=== PATIENT | female | born 1975 | race Caucasian/White ===

== ENCOUNTER 2020-10-11 08:58 | Outpatient (REF) | payer OTHER, SELFPAY ==
[2020-10-11 09:24] LABS: COVID-19 Test Negative (Negative)
== END 2020-10-11 08:59 | disposition home or self-care (01) ==
LOC: HO.EMPCOV 08:58
PROVIDERS: Visit Provider Internal Medicine
DX: Z20.822 Contact with and (suspected) exposure to COVID-19 (principal)
CPT/HCPCS: 36415; 87635; C9803

== ENCOUNTER 2023-05-26 12:39 | Outpatient (AMB) | payer OTHER, BC, SELFPAY ==
--- NOTE | 2023-05-26 12:38 | MHC.OFFVIS ---
Intake Vital Signs 05/26/23 12:41 Height 5 ft 3.75 in Weight 187 lb 13.341 oz BMI 32.5 BP 132/68 Blood Pressure Location Lt brachial Position Sitting Pulse 75 Pulse Source Pulse Oximeter Pulse Oximetry (%) 98 Oxygen Delivery Method Room Air Intake Visit Reasons: Nausea, Abdominal Pains Intake Note: Pt presents to the office today for ongoing nausea and abdominal pain. Pt states shes been having stomach issues for years but within the past two weeks she states she hasn't had an appetite and when she does eat she feels full without eating much. She states recently her appetite has come back a little but she doesnt think it has gone back to normal. She states she has been having loose stools but no vomiting and nauesea currently. Allergies Penicillins [PENICILLINS] Allergy (Unknown, Unverified 05/26/23 12:43) UNKNOWN HPI HPI Comments History of Present Illness Details 48 y.o F with PMH of who is here to establish care. Pt reports having longstanding gastrointestinal complaints and had lap CCY in 2016 at [facility] for biliary colic. More recently since Dec has lost appetite. Initially attributed this to taking Abx for sinusitis. However gradually lost weight as well up to 15 lbs in 2 months. Now continues to have low appetite and early satiety has gotten worse over the last 2 weeks and resultantly lost 7 lbs in 2 weeks. No significant abdominal pain, nausea, vomiting or change in bowel habits with this. Does have diarrhea at baseline, which has been present since her cholecystectomy, describes it as loose stool that appear greasy. Last colo was in her early 30s which was done as part of work up for abd pain. Has not had a screening colo since she has turned 45. [facility] Medical History FH: cholecystectomy Monocular diplopia of right eye Surgical History H/O reduction mammoplasty Social History Household Members: Family Housing: House Alcohol intake: current Alcohol intake frequency: a few times a month Patient Tobacco Use Status: Never used Tobacco service: No Current occupational status: employed Current occupation: [employer] [place] Neurology and Sleep Review of Systems Const All systems reviewed & are unremarkable except as noted in HPI and below Physical Exam Vital Signs: Last Vital Signs Pulse 75 05/26/23 12:41 BP 132/68 05/26/23 12:41 Pulse Ox 98 05/26/23 12:41 Oxygen Delivery Method Room Air 05/26/23 12:41 BMI result Body Mass Index 32.5 Gen appear: NAD HEENT: nonicteric, no cervical lymphadenopathy Chest: CTA CVS: Regular S1/S2 Abd: soft, nontender, nondistended, bowel sounds + Ext: no peripheral edema Neuro: A/Ox3, noted to move all extremities spontaneously Psych: interacting appropriately Assessment & Plan Assessment & Plan (1) Loss of appetite: Code(s): R63.0 - Anorexia (2) Unintentional weight loss: Code(s): R63.4 - Abnormal weight loss Plan Differentials include delayed gastric emptying, although it obstruction, PUD, IBD, chronic infection, dysmotility. Workup including upper GI series ordered as below. Indication for further workup including EGD and colonoscopy will be guided by the results. Follow-up in 4 weeks Orders: Orders Comprehensive Met. Panel 05/26/23 R63.4 - Abnormal weight loss Ferritin 05/26/23 R63.4 - Abnormal weight loss Hemoglobin A1c 05/26/23 R63.4 - Abnormal weight loss IRON PROFILE 05/26/23 R63.4 - Abnormal weight loss Vitamin D 25-OH Total 05/26/23 R63.4 - Abnormal weight loss Prothrombin Time INR 05/26/23 R63.4 - Abnormal weight loss Complete Blood Count no Diff 05/26/23 R63.4 - Abnormal weight loss Immunoglobulin A 05/26/23 R63.4 - Abnormal weight loss Transglutaminase IgA 05/26/23 R63.4 - Abnormal weight loss Hepatitis B Surface Antibody 05/26/23 R63.4 - Abnormal weight loss Hepatitis A IgG 05/26/23 R63.4 - Abnormal weight loss Hepatitis B Core Antibody 05/26/23 R63.4 - Abnormal weight loss Hepatitis B Surface Antigen 05/26/23 R63.4 - Abnormal weight loss Hepatitis C Antibody Reflex 05/26/23 K74.60 - Unspecified cirrhosis of liver, R63.4 - Abnormal weight loss HIV Ab/Ag 05/26/23 R63.4 - Abnormal weight loss FL upper GI series 05/26/23 R63.0 - Anorexia Calcium, Ionized 05/26/23 R63.0 - Anorexia Magnesium 05/26/23 R63.0 - Anorexia Calprotectin, Fecal 05/26/23 R63.4 - Abnormal weight loss Coding Level of Care Code New Pt Level 5 (45766) Diagnoses Loss of appetite R63.0 Unintentional weight loss R63.4
[2023-05-26 12:41] VITALS: BP 132/68; PULSE 75; O2SAT 98; BMI 32.5
== END 2023-05-26 13:21 | disposition home or self-care (01) ==
PROVIDERS: Visit Provider Internal Medicine
DX: R63.0 Anorexia (principal)
CPT/HCPCS: 99204

== ENCOUNTER → 2023-05-26 12:39 | Outpatient (BNVA) | payer OTHER, SELFPAY | PROVIDERS: Visit Provider Internal Medicine | DX: R63.0 Anorexia (principal); R63.4 Abnormal weight loss | CPT/HCPCS: 99202 ==

== ENCOUNTER 2023-06-26 10:37 | Outpatient (REF) | payer OTHER, BC, SELFPAY ==
[2023-06-26 10:56] LABS: Hematocrit 37.4 % (37.0-47.0); Hemoglobin 12.5 g/dl (12.0-16.0); Mean Corpuscular HGB Conc 33.4 g/dl (31.0-35.0); Mean Corpuscular Hemoglobin 28.9 pg (27.0-33.0); Mean Corpuscular Volume 86.4 fL (80.0-98.0); Mean Platelet Volume 9.9 fL (9.4-12.3); Platelet Count 242 X10*3/uL (160-400); Red Blood Count 4.33 X10*6/uL (4.20-5.50); Red Cell Distribution Width 12.2 % (11.0-16.0); White Blood Count 5.3 X10*3/uL (4.8-10.8)
[2023-06-26 11:04] LABS: INTERNATIONAL NORM RATIO 0.9 (0.9-1.1); Prothrombin Time 11.1 SEC (11.1-13.3)
[2023-06-26 11:10] LABS: Estimated Average Glucose 94 mg/dL; Hemoglobin A1c % 4.9 % (<6.0)
[2023-06-26 11:47] LABS: Alanine Aminotransferase 17 U/L (0-31); Albumin Level 4.1 g/dL (3.5-5.0); Alkaline Phosphatase 50 U/L (39-117); Anion Gap 14 (12-20); Aspartate Amino Transferase 16 U/L (5-31); Bilirubin Total 0.4 mg/dL (0.0-1.0); Blood Urea Nitrogen 14 mg/dL (9-16); Calcium 9.2 mg/dL (8.4-10.2); Carbon Dioxide 22 mmol/L (22-29); Chloride 107 mmol/L (96-108); Estimated Glomerular Filt Rate > 60; Glucose Random 93 mg/dL (60-115); Iron 64 mcg/dL (30-160); Magnesium 2.1 mg/dL (1.6-2.6); Percent Iron Saturation 22 % (15-50); Potassium 4.3 mmol/L (3.3-5.1); Sodium 139 mmol/L (135-145); Total Iron Binding Capacity 292 mcg/dL (228-428); Total Protein 7.2 g/dL (6.5-8.0); Unsaturated Iron Binding 228 ug/dL
[2023-06-26 12:02] LABS: Ferritin 19 ng/mL (10-250)
[2023-06-28 03:56] LABS: HBS Num1 114.41 mIU/mL (0-7.99); HBc Num1 0.13 S/CO (0.00-0.79); HBsAGNum1 0.35 S/CO (0.00-0.99); HIV AB/AG Nonreactive (Nonreactive); HIV Num 1 0.06 S/CO (0.00-0.99); Hepatitis B Core Antibody Nonreactive (Nonreactive); Hepatitis B Surface Antigen Negative (Negative); ~HepC Num1 0.15 S/CO (0.00-0.79); ~Hepatitis B Surface Antibody REACTIVE (Nonreactive); ~Hepatitis C Antibody Nonreactive (Nonreactive)
[2023-06-28 03:58] LABS: Hepatitis A Antibody IgG Nonreactive (Nonreactive)
[2023-06-28 20:08] LABS: Immunoglobulin A 224 mg/dL (47-310)
[2023-06-28 20:58] LABS: Calcium, Ionized 5.1 mg/dL (4.7-5.5)
[2023-06-29 20:50] LABS: Transglutaminase IgA <1.0 U/mL
== END 2023-06-26 10:38 | disposition home or self-care (01) ==
LOC: HO.LAB 10:37
PROVIDERS: Visit Provider Internal Medicine
DX: K74.60 Unspecified cirrhosis of liver (principal); R63.4 Abnormal weight loss; R63.0 Anorexia
CPT/HCPCS: 36415; 80053; 82306; 82330; 82728; 82784; 83036; 83540; 83735; 85027; 85610; 86364; 86704; 86706; 86708; 86803; 87340; 87389

== ENCOUNTER 2023-07-01 09:02 | Outpatient (REF) | payer BC, SELFPAY ==
--- NOTE | ~2023-07-01 | FL_ITS ---
EXAMINATION: XR FLUOROSCOPY UPPER GI WITH AIR CLINICAL INFORMATION: Unexplained weight loss and loss of appetite. COMPARISON: None TECHNIQUE: Fluoroscopic air contrast upper GI examination was performed utilizing standard techniques with thin and thick barium and effervescent granules. Numerous spot images were obtained. FINDINGS: Hypopharyngeal structures appear normal without evidence of mass or diverticulum. There was no significant cricopharyngeal achalasia. Dual and single contrast images of the esophagus demonstrate normal caliber, contour, and mucosal pattern. No evidence of stricture, mass, or ulcerations identified. Esophageal peristalsis was normal. Small sliding (type I) hiatus hernia present. There is a small Schatzki's ring present which is open without luminal narrowing. Episodic gastroesophageal reflux was seen during the course of the examination to the level of the thoracic inlet. Dual contrast and single contrast images of the stomach demonstrated normal contour and mucosal pattern without evidence of mass, ulceration, or other abnormality. Contrast freely passed into the gastric antrum and duodenal bulb without delay. Single and air-contrast images of the duodenal bulb demonstrate no abnormality. The duodenal sweep has a normal appearance, course, and mucosal fold appearance. The imaged proximal jejunum has a normal fold pattern and caliber. Mildly fast transit was incidentally noted with contrast reaching the mid ileum at the termination of the exam. This is of uncertain significance or etiology. Small bowel fold pattern and caliber appear normal. Cholecystectomy clips are noted. FLUOROSCOPY TIME: 3 minutes and 6 seconds Number of Spot Images: 18 spot images obtained. 5 image hold fluoroscopic cine runs obtained. DOSE AREA PRODUCT: 2828 uGy-m2 (microgray-meter squared) FL/FL upper GI series IMPRESSION: 1. Small type I hiatus hernia. Probable remnant of a Schatzki's ring present at the distal esophagus without luminal narrowing. 2. Episodic gastroesophageal reflux to the level of the thoracic inlet. 3. Mildly fast transit through the small bowel, of uncertain significance or etiology. 4. Normal appearing stomach, duodenal bulb, duodenal sweep, and small bowel appearance.
== END 2023-07-01 09:03 | disposition home or self-care (01) ==
LOC: HO.XRAY 09:02
PROVIDERS: PCP Internal Medicine; Visit Provider Internal Medicine
DX: R63.0 Anorexia (principal)
CPT/HCPCS: 74240

== ENCOUNTER → 2023-07-01 09:03 | Outpatient (BNV) | payer BC, SELFPAY | PROVIDERS: PCP Internal Medicine; Visit Provider Radiology Diagnostic Radiology | DX: R63.4 Abnormal weight loss (principal) | CPT/HCPCS: 74246 ==

== ENCOUNTER 2023-07-09 15:46 | Outpatient (AMB) | payer BC, SELFPAY ==
--- NOTE | 2023-07-09 16:09 | MHC.OFFVIS ---
Intake Intake Visit Reasons: 4 Week FU Labs Intake Note: Emily presents as a video call today for a 4 week follow up for her labs. Allergies Penicillins [PENICILLINS] Allergy (Unknown, Unverified 07/09/23 16:09) UNKNOWN HPI HPI Comments History of Present Illness Details 48 y.o F with PMH of who is here for follow up through telehealth. 05/26/23: Pt reports having longstanding gastrointestinal complaints and had lap CCY in 2016 at [facility] for biliary colic. More recently since Dec has lost appetite. Initially attributed this to taking Abx for sinusitis. However gradually lost weight as well up to 15 lbs in 2 months. Now continues to have low appetite and early satiety has gotten worse over the last 2 weeks and resultantly lost 7 lbs in 2 weeks. No significant abdominal pain, nausea, vomiting or change in bowel habits with this. Does have diarrhea at baseline, which has been present since her cholecystectomy, describes it as loose stool that appear greasy. Last colo was in her early 30s which was done as part of work up for abd pain. Has not had a screening colo since she has turned 45. 07/09/23: Seen via video telehealth. Reports weight curve is now more stable, has made dietary changes as well. Labs reviewed and essentially all normal. UGIS consistent with reflux disease as well as nonobstructing Schatzki's ring. However pt does not report any significant swallowing difficulty. [facility] Medical History Monocular diplopia of right eye FH: cholecystectomy Surgical History H/O reduction mammoplasty Social History Household Members: Family Housing: House Alcohol intake: current Alcohol intake frequency: a few times a month Patient Tobacco Use Status: Never used Tobacco service: No Current occupational status: employed Current occupation: [employer] [place] Neurology and Sleep Review of Systems Const All systems reviewed & are unremarkable except as noted in HPI and below Physical Exam Vital Signs: Video visit: NAD speaking in full sentences no dysarthria noted Assessment & Plan Assessment & Plan (1) GERD (gastroesophageal reflux disease): Code(s): K21.9 - Gastro-esophageal reflux disease without esophagitis (2) Schatzki's ring: Code(s): K22.2 - Esophageal obstruction (3) Colon cancer screening: Code(s): Z12.11 - Encounter for screening for malignant neoplasm of colon Plan Will set her up for EGD for further eval of Schatzki's ring as well as to r/o BE given significant reflux noted on UGIS. This can be booked at the same time as screening colo. Split PEG prep instructions reviewed. Handout provided online. Pt is aware that this will be booked on an elective basis. Follow up after procedures as needed. Medications: New peg 3350-electrolytes 236-22.74-6.74 -5.86 gram (Golytely) as per split prep instructions, until fecal effluent is clear 240 mL PO Q10M 4,000 mL 0RF colonoscopy Telehealth Telehealth Location of provider rendering services: practice address Location of patient: address on file Patient Identification confirmed using: Name, : Yes Telehealth method: video Patient verbally consented to treatment: Yes Patient verbally consented to billing insurance company: Yes Patient informed of any privacy concerns related to visit: Yes Minutes spent on Phone/Video with Pt.: 16 Coding Level of Care Code Tele Est Pt Level 4 (36783) Diagnoses GERD (gastroesophageal reflux disease) K21.9 Schatzki's ring K22.2 Colon cancer screening Z12.11
== END 2023-07-09 16:23 | disposition home or self-care (01) ==
LOC: HO.HGI 15:46
PROVIDERS: PCP Internal Medicine; Visit Provider Internal Medicine
DX: K22.2 Esophageal obstruction (principal); K21.9 Gastro-esophageal reflux disease without esophagitis; Z12.11 Encounter for screening for malignant neoplasm of colon
CPT/HCPCS: 99213

== ENCOUNTER → 2023-07-09 15:46 | Outpatient (BNVA) | payer BC, SELFPAY | PROVIDERS: PCP Internal Medicine; Visit Provider Internal Medicine | DX: K21.9 Gastro-esophageal reflux disease without esophagitis (principal); K22.2 Esophageal obstruction; Z12.11 Encounter for screening for malignant neoplasm of colon ==

== ENCOUNTER 2024-01-27 06:42 | Day surgery (SDC) | payer BC, SELFPAY ==
[2024-01-27 06:52] VITALS: BMI 30.1
[2024-01-27 06:57] VITALS: PULSE 70; RESP 18; TEMP 36.6; O2SAT 100
[2024-01-27 07:18] LABS: UPreg QC Valid YES; Urine Pregnancy NEGATIVE (NEGATIVE)
[2024-01-27] MEDS: Lactated Ringers 1,000 ML 50 ML IVCONT (07:44)
--- NOTE | 2024-01-27 07:52 | HO.ANESPROP2 ---
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 FH: cholecystectomy Functional capacity: independent ambulation Patient : No Family History Family history of problems with anesthesia: No Surgical History Surgical History H/O reduction mammoplasty History of Problems with Anesthesia: No Social History Social History Household Members: Family Housing: House Alcohol intake: current Alcohol intake frequency: a few times a month Patient Tobacco Use Status: Never used Tobacco Use of substances other than those prescribed or required for medical reasons: No Are you DNR?: No Advance Directives: No Advance Directives Information Provided: Yes service: No Current occupational status: employed Current occupation: [employer] [place] Neurology and Sleep Meds Allergies Allergy/AdvReac Type Severity Reaction Status Date / Time Penicillins [PENICILLINS] Allergy Unknown UNKNOWN Verified 01/27/24 07:43 pork gelitin Allergy Nausea Uncoded 01/27/24 07:42 Active Medications: Current Medications Lactated Ringer's (Lr) 1,000 mls @ 50 mls/hr IVCONT .Q20H MATILDA Last Admin: 01/27/24 07:44 Dose: 50 mls/hr Home Medications ?Medication ?Instructions ?Recorded ?Confirmed ?Last Taken ?Type azelastine 137 mcg (0.1 %) nasal 2 spray intranasal BID 05/26/23 01/27/24 Unknown History spray aerosol fluticasone propionate 50 2 spray intranasal BID PRN nasal 05/26/23 01/27/24 Unknown History mcg/actuation nasal stuffy spray,suspension zafirlukast 20 mg tablet 20 mg PO BID 05/26/23 01/27/24 Unknown History albuterol sulfate 90 mcg/actuation 2 puff inhalation Q4H PRN Cough 07/09/23 01/27/24 Unknown History aerosol inhaler Exam Height,Weight and Vital Signs: Height 5 ft 3.75 in Weight 79.016 kg Last Vital Signs Temp 97.9 F 01/27/24 06:57 Pulse 70 01/27/24 06:57 Resp 18 01/27/24 06:57 Pulse Ox 100 01/27/24 06:57 O2 Del Method Room Air 01/27/24 06:57 Pertinent Lab Results Pertinent Lab Results: Laboratory Tests 01/27/24 07:02 Urine Test NEGATIVE Airway TM Dist: >3cm Neck ROM: Full Heart: RRR Lungs: CTA Assessment and Plan Assessment Anesthesia Assessment: Anesthesia Plan Discussed Final Anesthetic Review Family History of Problems with Anesthesia: No History of Problems with Anesthesia: No NPO: Yes ASA Class: II Final Preanesthetic Review: Meds/Allgs Chart Reviewed, Consent Obtained/Reviewed and Anes Risks/Benef Reviewed Anesthetic Plan Anesthetic Plan: MAC: Disposition: Standard PACU
--- NOTE | 2024-01-27 08:12 | MHC.SHP ---
Pre-Procedural Eval Section A - 24 Hr Update-Section A only Date of Service: 01/27/24 Section B - Complete if H&P > 30 days Chief Complaint: gerd,screening Details of Present Illness: Monocular diplopia of right eye FH: cholecystectomy Surgical History H/O reduction mammoplasty Allergies: Allergies Allergy/AdvReac Type Severity Reaction Status Date / Time Penicillins [PENICILLINS] Allergy Unknown UNKNOWN Verified 01/27/24 07:43 pork gelitin Allergy Nausea Uncoded 01/27/24 07:42 Review of Systems Review of Systems Comment: 10 point ROS negative Exam Surgical H&P Exam: Normal: HEENT, Normal: Heart, Normal: Lungs, Normal: Extremities, Normal: Abdomen, Normal: Skin and Normal: Neurological Plan Diagnosis/Plan: Unchanged I have reviewed the history and physical and performed a pertinent physical examination on my patient. No changes have occurred unless specified. Time Spent With Patient Time: Total time managing care of this patient today ____ minutes.
--- NOTE | 2024-01-27 08:16 | P.OP_ITS ---
Operative Note Operative Note Date of Service: 01/27/24 Narrative: Procedure: Upper endoscopy and colonoscopy Indication: GERD, screening Endoscopist: Milagros Patino MD Anesthesia Provider: Kathy Verdin CRNA Anesthesia type: MAC Instrument: GIF-H190 and PCF-H190L EGD Procedure:?? The procedure, indications, preparation and potential complications were reviewed with the patient, who indicated understanding and gave written informed consent to proceed. Physical exam was performed. The endoscope was introduced through the mouth, and advanced to the 3rd part of the duodenum. The mucosa was carefully examined on slow withdrawal of the endoscope. The patient tolerated the procedure well. There were no immediate complications.? EGD Findings:? * Esophagus:? Erythema and erosions were noted at the GE junction. The Z-line was at 34 cm. A small hiatal hernia was noted with the diaphragmatic pinch at 36 cm. Cold forceps biopsies were taken for histology. * Stomach:? Normal gastric mucosa was noted. Retroflexion was performed in the cardia. Cold forceps random gastric biopsies were taken to rule out H pylori. * Duodenum:? Normal duodenal mucosa. Cold forceps biopsies were taken from the duodenal bulb and 2nd portion of the duodenum to rule out celiac sprue. Colonoscopy Procedure:? The patient was then turned for the colonoscopy. A digital rectal exam was performed which was abnormal for ext hemorrhoids.? A distal attachment cap was affixed to the tip of the scope and the colonoscope was then inserted through the anus and advanced through the colon and advanced to the cecum at 75 cm and terminal ileum.? Appendiceal orifice and ileocecal valve were identified. Mucosa was carefully examined under high definition white light as the instrument was slowly withdrawn in a retrograde panoramic fashion. Retroflexion was performed in rectum. The procedure was not difficult. The quality of the prep was BBPS: 3+2+3 = adequate Withdrawal time 14 minutes Limitations: No limitations Findings: Mucosa: Normal colon and terminal ileum mucosa. Protruding lesions: * One sessile polyps of size 5 mm was noted in the descending colon. Cold snare polypectomy was performed. The polyp was completely removed and retrieved. * Medium internal hemorrhoids without stigmata of recent bleeding. Excavated lesions: * Moderate diverticulosis in the left colon Impression: 1. Grade A esophagitis 2. Hiatal hernia 3. Normal stomach 4. Normal duodenum 5. Normal colon and terminal ileum mucosa 6. Descending colon polyp removed 7. Diverticulosis 8. Internal and external hemorrhoids Recommendations:?? * Follow-up path results * Start omeprazole b.i.d. x 8 weeks and then decrease to once daily * Avoid NSAIDs * Repeat colonoscopy in 7-10 years depending on the results
[2024-01-27 08:56] VITALS: BP 102/61; PULSE 85; RESP 16; TEMP 36.7; O2SAT 98
[2024-01-27 09:21] VITALS: BP 108/60; PULSE 77; RESP 17; TEMP 36.8; O2SAT 98
--- NOTE | 2024-01-27 10:33 | HO.POSTANES ---
Post Anesthesia Evaluation Post Anesthesia Evaluation Date of Service: 01/27/24 Vital Signs: Vital Signs Temp Pulse Resp BP Pulse Ox O2 Del Method 01/27/24 09:21 98.2 F 77 17 108/60 98 Room Air 01/27/24 08:56 98.0 F 85 16 102/61 98 Room Air 01/27/24 06:57 97.9 F 70 18 100 Room Air Anesthesia: Monitored Mental Status: Awake Pain Control: Satisfactory Nausea/Vomiting: None Hydration: Adequate Anesthesia-Related Issues: No Anes. Related Issues
== END 2024-01-27 10:02 | disposition home or self-care (01) ==
PROVIDERS: PCP Internal Medicine; Visit Provider Internal Medicine
PROC: (CPT 45385; principal; 2024-01-27 07:30)
DX: Z12.11 Encounter for screening for malignant neoplasm of colon (principal); D12.4 Benign neoplasm of descending colon; K57.30 Diverticulosis of large intestine without perforation or abscess without bleeding; K64.8 Other hemorrhoids; K64.4 Residual hemorrhoidal skin tags; K21.9 Gastro-esophageal reflux disease without esophagitis; K20.90 Esophagitis, unspecified without bleeding; K22.2 Esophageal obstruction; K44.9 Diaphragmatic hernia without obstruction or gangrene; H53.2 Diplopia; Z98.890 Other specified postprocedural states; Z90.49 Acquired absence of other specified parts of digestive tract; Z88.0 Allergy status to penicillin
CPT/HCPCS: 45385; 43239; 81025; 88305; 88313; 88342; J1100; J1596; J2250; J2704

== ENCOUNTER → 2024-01-27 06:42 | Outpatient (BNV) | payer BC, SELFPAY | PROVIDERS: PCP Internal Medicine; Visit Provider Internal Medicine | DX: Z12.11 Encounter for screening for malignant neoplasm of colon (principal); D12.4 Benign neoplasm of descending colon; K57.90 Diverticulosis of intestine, part unspecified, without perforation or abscess without bleeding; K64.8 Other hemorrhoids; K21.00 Gastro-esophageal reflux disease with esophagitis, without bleeding | CPT/HCPCS: 43239; 45385 ==

== ENCOUNTER 2024-02-03 15:43 | Outpatient (REF) | payer BC, SELFPAY ==
[2024-02-04 23:28] LABS: Immunoglobulin E 20 kU/L (<OR=114)
== END 2024-02-03 15:44 | disposition home or self-care (01) ==
LOC: HO.HKASLDS 15:43
PROVIDERS: Visit Provider Allergy & Immunology
DX: J45.40 Moderate persistent asthma, uncomplicated (principal); Z91.018 Allergy to other foods
CPT/HCPCS: 36415; 82785; 86003

== ENCOUNTER 2024-02-04 14:58 | Outpatient (AMB) | payer BC, SELFPAY ==
--- NOTE | 2024-02-04 14:58 | MHC.OFFVIS ---
Intake Visit Reasons: s/p colon sonia Intake Note: Emily presents as a follow up EGD and COLO. CC: She states that she is not having any concerns since her procedures. [employer] Team Member Required: No Allergies Penicillins [PENICILLINS] Allergy (Unknown, Verified 02/04/24 14:58) UNKNOWN pork gelitin Allergy (Uncoded 02/04/24 14:58) Nausea HPI Comments Details: 48 y.o F with PMH of who is here for follow up through telehealth. 05/26/23: Pt reports having longstanding gastrointestinal complaints and had lap CCY in 2016 at [facility] for biliary colic. More recently since Dec has lost appetite. Initially attributed this to taking Abx for sinusitis. However gradually lost weight as well up to 15 lbs in 2 months. Now continues to have low appetite and early satiety has gotten worse over the last 2 weeks and resultantly lost 7 lbs in 2 weeks. No significant abdominal pain, nausea, vomiting or change in bowel habits with this. Does have diarrhea at baseline, which has been present since her cholecystectomy, describes it as loose stool that appear greasy. Last colo was in her early 30s which was done as part of work up for abd pain. Has not had a screening colo since she has turned 45. 07/09/23: Seen via video telehealth. Reports weight curve is now more stable, has made dietary changes as well. Labs reviewed and essentially all normal. UGIS consistent with reflux disease as well as nonobstructing Schatzki's ring. However pt does not report any significant swallowing difficulty. 01/27/24: 1. Grade A esophagitis 2. Hiatal hernia 3. Normal stomach 4. Normal duodenum 5. Normal colon and terminal ileum mucosa 6. Descending colon polyp removed 7. Diverticulosis 8. Internal and external hemorrhoids Path: A. Duodenum, biopsy: Duodenal mucosa within normal limits; preserved villous architecture and no increased intraepithelial lymphocytes seen. B. Stomach, random, biopsy: Gastric antral and body mucosa with mild chronic inactive gastritis; negative for Helicobacter pylori, intestinal metaplasia and dysplasia. C. Gastroesophageal junction, biopsy: Squamocolumnar junctional mucosa with mild chronic inflammation; negative for intestinal metaplasia and dysplasia. D. Colon, descending, polypectomy: Tubular adenoma; negative for high-grade dysplasia. 02/04/24: Seen in tele follow up. Reports weight curve stable but has not recovered the weight loss. EGD/colo results reviewed. Pt already started on PPI since endoscopy. Cont to have altered appetite and also notes abd discomfort sakshi after red meat. Getting Alpha gal testing done through a different provider. 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 FH: cholecystectomy Surgical History (Updated 02/04/24 @ 15:01 by SERG Toribio) Hx of colonoscopy History of esophagogastroduodenoscopy (EGD) H/O reduction mammoplasty Social History Household Members: Family Housing: House Alcohol intake: current Alcohol intake frequency: a few times a month Patient Tobacco Use Status: Never used Tobacco service: No Current occupational status: employed Current occupation: [employer] [place] Neurology and Sleep Review of Systems Const All systems reviewed & are unremarkable except as noted in HPI and below Physical Exam tele visit appears well speaking in full sentences no obv resp distress Telehealth Telehealth Telehealth Platform: [facility] Location of provider rendering services: practice address Location of patient: address on file Patient Identification confirmed using: Name, : Yes Telehealth method: video Patient verbally consented to treatment: Yes Patient verbally consented to billing insurance company: Yes Patient informed of any privacy concerns related to visit: Yes Assessment & Plan Assessment & Plan (1) Esophagitis: Code(s): K20.90 - Esophagitis, unspecified without bleeding Category: Medical (2) GERD (gastroesophageal reflux disease): Code(s): K21.9 - Gastro-esophageal reflux disease without esophagitis Category: Medical (3) Loss of appetite: Code(s): R63.0 - Anorexia Category: Medical (4) Unintentional weight loss: Code(s): R63.4 - Abnormal weight loss Category: Medical Plan 1. Esophagitis: Grade A. HH as a risk factor. Plan: - COnt omeprazole. - No evidence of EoE - Avoid dietary triggers 2. Unintenrional weight loss/abd discomfort No luminal etiology on bidirectional scope. Plan: - Agree with alpha gal testing - CT Abd/pel to r/o other causes sakshi hepatopancreaticobiliary. Follow up after CT done Orders: Orders CT abdomen pelvis w IV con 02/04/24 R63.0 - Anorexia, R63.4 - Abnormal weight loss Coding Level of Care Code Tele Est Pt Level 4 (44152) Diagnoses Esophagitis K20.90 GERD (gastroesophageal reflux disease) K21.9 Loss of appetite R63.0 Unintentional weight loss R63.4
== END 2024-02-04 16:14 | disposition home or self-care (01) ==
LOC: HO.HGI 14:58
PROVIDERS: PCP Internal Medicine; Visit Provider Internal Medicine
DX: K21.00 Gastro-esophageal reflux disease with esophagitis, without bleeding (principal); R63.0 Anorexia; R63.4 Abnormal weight loss
CPT/HCPCS: 99214

== ENCOUNTER → 2024-02-04 14:58 | Outpatient (BNVA) | payer BC, SELFPAY | PROVIDERS: PCP Internal Medicine; Visit Provider Internal Medicine ==

== ENCOUNTER 2024-04-04 15:36 | Outpatient (AMB) | payer BC, SELFPAY ==
[2024-04-04 15:38] VITALS: BMI 29.8
--- NOTE | 2024-04-04 15:38 | A.OFFVIS_ITS ---
Vital Signs 3 04/04/24 15:38 Height 5 ft 3.75 in Weight 172 lb BMI 29.8 Intake Visit Reasons: HX LCIS[place] [facility] [place] Intake Note: Patient is seen for history of LCIS, high risk breast. Pt c/o: reports no breast complaints. MRI sched:04/19/24 [facility] mm:03/20/24 [facility] Accounts Payable Administrator Required: No Business Area Manager: Business Area Manager Present (James) Accompanied by: Self / Same As Patient Allergies Penicillins [PENICILLINS] Allergy (Unknown, Verified 04/04/24 15:39) UNKNOWN pork gelitin Allergy (Uncoded 04/04/24 15:39) Nausea HPI Comments Details: 49-year-old female patient being seen for a high risk breast examination. 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 She underwent a bilateral breast reduction in 2013. Her family history significant for a maternal grandmother with breast cancer. She was treated with tamoxifen for 5 years and has undergone yearly breast MRI and mammograms alternating every 6 months. Her most recent mammogram dated 10/05/2023 revealed no mammographic evidence of malignancy (BI-RADS 2). MRI dated 03/20/2024 also revealed no MR evidence of malignancy in either breast (BI-RADS 2). She is with 1 ab. She did breastfeed both her children and denies a prior history of breast infections. 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 FH: cholecystectomy Surgical History History of dilation and curettage (~2016) Hx of surgical procedure (~2011) History of eye surgery Hx of cholecystectomy (~2015) Hx of surgical procedure (~1986) Hx of surgical procedure (~1984) Hx of surgical procedure Hx of colonoscopy History of esophagogastroduodenoscopy (EGD) H/O reduction mammoplasty (~2013) Family History Other Family history unknown Social History Household Members: Family Housing: House Alcohol intake: current Alcohol intake frequency: a few times a month Patient Tobacco Use Status: Never used Tobacco service: No Current occupational status: employed Current occupation: [employer] [place] [employer] Female Reproductive History Menstrual Total pregnancies: 3 Full term: 2 Number of Living Children: 2 Ab induced: 1 Review of Systems Const All systems reviewed & are unremarkable except as noted in HPI and below Denies chills, Denies fever(s), Denies headache(s), Denies poor appetite and Denies weakness ENT Denies headache(s) Card Denies chest pain, Denies irregular heart rhythm, Denies palpitations and Denies dyspnea Resp Denies cough, Denies excessive phlegm production and Denies dyspnea GI Denies abdominal pain, Denies bloating, Denies change in bowel habits, Denies constipation, Denies heartburn, Denies diarrhea, Denies nausea and Denies vomiting Denies urinary frequency Musc Denies back pain, Denies muscle weakness and Denies numbness Skin/Breast Denies changing lesions and Denies unusual bruising Neuro Denies headache(s), Denies numbness, Denies paresthesias and Denies weakness Psych Denies anxiety and Denies depression Endo Denies palpitations Adolfo/Lymph Denies lymphadenopathy Physical Exam Vital Signs: BMI result Body Mass Index 29.8 Const General: cooperative and no acute distress Nutritional Appearance: well nourished Orientation/consciousness: patient oriented x3 Limitations: no limitations HEENT Head: Yes normocephalic and Yes atraumatic Ears: hearing grossly normal bilaterally Neck Neck: Yes full ROM and Yes no lymphadenopathy Chest Other: Bilateral mammoplasty incisions Left breast: No skin change, no nipple retraction, no nipple discharge, no palpable mass, no enlarged lymph nodes. Right breast: No skin change, no nipple retraction, no nipple discharge, no palpable mass, no enlarged lymph nodes Chest/axillae images: 2 1. 2 cm palpable density, possible cyst, mobile within the breast tissue with no skin changes 2. Palpable density proximally 2 cm, mobile within the breast tissue Resp Effort & Inspection: normal respiratory effort, no audible wheezes, no cough and no respiratory distress Cardio Jugular venous distension: no JVD GI Inspection: Yes normal to inspection Skin Other: Warm, dry, no rash Neuro Other: Mobility Assessment: 1. 3 meter assessment time (seconds):5 2. Gait observations: Normal balance and gait General: patient oriented x3 Extrem General: Yes no clubbing, cyanosis or edema Assessment & Plan Assessment & Plan (1) At increased risk for malignant neoplasm of breast: Code(s): Z91.89 - Other specified personal risk factors, not elsewhere classified (2) Lobular carcinoma in situ (LCIS) of left breast: Code(s): D05.02 - Lobular carcinoma in situ of left breast Plan 49-year-old female patient felt to be at high risk for breast cancer due to a prior pathology with LCIS and atypical ductal hyperplasia as well as a family history of breast cancer. We discussed possibility of adding genetic testing given her family history. She should continue with her yearly breast MRI and mammogram alternating every 6 months. She was encouraged to continue monthly self examinations as well as twice yearly clinical breast examination. She will be scheduled for an ultrasound of the left breast and should follow up in 6 months for routine breast examination. She is welcome to call sooner for any new concerns. Orders: Orders 2 US breast LT complete 04/04/24 D05.02 - Lobular carcinoma in situ of left breast, Z91.89 - Other specified personal risk factors, not elsewhere classified Coding Level of Care Code New Pt Level 4 (28125) Diagnoses At increased risk for malignant neoplasm of breast Z91.89 Lobular carcinoma in situ (LCIS) of left breast D05.02
== END 2024-04-04 16:28 | disposition home or self-care (01) ==
PROVIDERS: PCP Internal Medicine; Visit Provider Surgery
DX: Z91.89 Other specified personal risk factors, not elsewhere classified (principal); D05.02 Lobular carcinoma in situ of left breast
CPT/HCPCS: 99203

== ENCOUNTER → 2024-04-04 15:36 | Outpatient (BNVA) | payer BC, SELFPAY | PROVIDERS: PCP Internal Medicine; Visit Provider Surgery ==

== ENCOUNTER 2024-04-05 16:03 | Outpatient (REF) | payer BC, SELFPAY ==
--- NOTE | ~2024-04-05 | CT_ITS ---
EXAMINATION: CT ABDOMEN AND PELVIS WITH CONTRAST CLINICAL INFORMATION: Anorexia COMPARISON: None available. TECHNIQUE: Multidetector volumetric images were obtained from the superior aspect of the liver through the pubic symphysis following administration 85 mL of Omnipaque 350 intravenous contrast. Sagittal and coronal reformatted images were obtained on the technologist's workstation. Oral Contrast: No. This CT examination was performed using dose optimization techniques as appropriate, variously including the following: *Automated exposure control. *Adjustment of mA and/or kV according to patient size (this includes techniques or standardized protocols for targeted exams where dose is matched to indication/reason for exam; i.e. extremities or head). *Use of iterative reconstruction technique. DLP: 407.14 mGy-cm FINDINGS: LUNG BASES: The visualized lung bases are unremarkable. LIVER, GALLBLADDER, AND BILIARY TREE: The liver is normal in size, shape, and attenuation. No focal hepatic lesion or biliary ductal dilatation is present. The gallbladder is unremarkable with no evidence of radiopaque gallstones, gallbladder wall thickening, or obvious pericholecystic inflammatory changes. PANCREAS: Unremarkable. SPLEEN: Unremarkable. ADRENAL GLANDS: Unremarkable. KIDNEYS AND URETERS: The kidneys are normal in size, shape, and attenuation. No hydronephrosis, hydroureter, or calculi seen. No perinephric stranding. BLADDER: Poorly filled with a symmetrically thickened wall. GASTROINTESTINAL TRACT: The small and large bowel are unremarkable. The appendix is unremarkable. ABDOMINAL WALL: No significant hernia is appreciated. LYMPH NODES: No retroperitoneal lymphadenopathy. VASCULAR: Unremarkable. PELVIC VISCERA: There is an enlarged anteverted uterus present with multiple masses consistent with uterine fibroids. There is a subserosal fundal mass measuring 1.8 cm and a mural 2.7 cm mass on the ventral surface of the uterus. OSSEOUS STRUCTURES: Unremarkable. CT/CT abdomen pelvis w IV con IMPRESSION: 1. A cause for the patient's anorexia has not been found. 2. Incidental note made of enlarged uterus with multiple masses consistent with uterine fibroids. Transabdominal and endovaginal ultrasound recommended for further evaluation and confirmation. Fleischner guidelines were followed.
[2024-04-05] MEDS: iohexoL 350 MG/ML 100 ML INFUS..BTL IV (17:40)
== END 2024-04-05 16:04 | disposition home or self-care (01) ==
LOC: HO.CT 16:03
PROVIDERS: Visit Provider Internal Medicine
DX: R63.0 Anorexia (principal); R63.4 Abnormal weight loss
CPT/HCPCS: 74177; Q9967

== ENCOUNTER → 2024-04-25 14:52 | Outpatient (BNVA) | payer BC, SELFPAY | PROVIDERS: PCP Internal Medicine; Visit Provider Surgery ==

== ENCOUNTER 2024-05-15 15:12 | Outpatient (REF) | payer BC, SELFPAY ==
--- NOTE | ~2024-05-15 | MM_ITS ---
EXAMINATION: MM DIAGNOSTIC DIGITAL BREAST TOMOSYNTHESIS, LEFT US BREAST LIMITED, LEFT MAMMOGRAPHY: CLINICAL INFORMATION: 3 foci of palpable concern left breast; 2 upper outer quadrant, and 1 lower slightly inner quadrant just medial to the nipple line. Patient has history of cysts, high risk lesion bilateral breast LCIS, left breast duct excision in 2011 as well as bilateral reduction mammoplasty in 2011, and benign left breast biopsy in 2013. COMPARISON: MRI breasts 03/20/2024. 12/14/2022 Mammography: 10/02/2023, 06/24/2022, 06/13/2022, 12/02/2018, 06/03/2018 ([facility]) TECHNIQUE: Digital left breast tomosynthesis is performed in both the craniocaudal and mediolateral oblique views along with computer-aided detection (CAD). Synthesized 2D images are generated from the tomosynthesis. FINDINGS: The breasts are heterogeneously dense, which may obscure small masses (ACR BI-RADS breast composition Category c). 3 BB markers have been placed in the regions of palpable concern at the 1:00 axis, 2:00 axis, and 6:00 axis, and the regions of palpable concern left breast. There are smooth circumscribed masses underlying the 1:00 and 2:00 axis, consistent with known cysts. No definite mammographic correlate is seen for the 6:00 axis palpable focus. These will be evaluated with ultrasound. Mild left breast parenchymal distortion and scarring is present from prior mammoplasty changes. A circumscribed small oval mass is also present at the 5:00 axis, middle depth, correlating with a known cyst on MRI. ULTRASOUND: CLINICAL INFORMATION: As above. COMPARISON: MRI breast 03/20/2024, left breast ultrasound 06/24/2022. TECHNIQUE: Targeted sonographic evaluation was performed using a high frequency linear transducer. Attention was given to the left breast 12:00 through 6:00 axis to include the areas of palpable concern. Selected archived documentation. FINDINGS: LEFT BREAST: -At the 1:00 axis, 7 cm from the nipple, there is a simple cyst measuring 2.2 x 1.9 x 1.3 cm. This correlates with the 1:00 palpable focus. -At the 2:00 axis left breast, 7 cm from the nipple, there is a second prominent simple cyst measuring 2.1 x 1.1 x 1.6 cm. This correlates with the 2:00 palpable focus. -At the 6:00 axis, 2 cm, there is a dermal-based oval circumscribed hypoechoic mass measuring 5 x 3 x 5 mm, consistent with a sebaceous cyst or epidermal inclusion cyst. Is correlates with the 6:00 axis palpable focus. -At the 5:00 axis, 4 cm from the nipple, there is a 1.0 cm simple cyst. There are no suspicious findings. MM/MM diagnostic mammo unilat LT IMPRESSION: 1. There are no findings suspicious for malignancy in the left breast. 2. There are several benign simple cysts as described, correlating with the palpable foci at 1:00, and 2:00. 3. At 6:00 there is small dermal-based sebaceous cyst versus epidermal inclusion cyst. Recommend surgical management for this finding. 4. Otherwise, recommend the patient resume routine annual screening. OVERALL ASSESSMENT: Mammography: BI-RADS 2 - Benign Findings Ultrasound: BI-RADS 2 - Benign Findings RECOMMENDATION: 1. Patient should be managed based on the clinical impression. 2. Otherwise, routine annual screening mammography. This patient's information was entered into a reminder system with a target due date for their next mammogram.
== END 2024-05-15 15:13 | disposition home or self-care (01) ==
LOC: HO.MAMMO 15:12
PROVIDERS: PCP Internal Medicine; Visit Provider Surgery
DX: R92.8 Other abnormal and inconclusive findings on diagnostic imaging of breast (principal); D05.02 Lobular carcinoma in situ of left breast; Z91.89 Other specified personal risk factors, not elsewhere classified
CPT/HCPCS: 76641; 77062; 77065

== ENCOUNTER → 2024-05-15 15:16 | Outpatient (BNV) | payer BC, SELFPAY | PROVIDERS: PCP Internal Medicine; Visit Provider Radiology Diagnostic Radiology | DX: R92.8 Other abnormal and inconclusive findings on diagnostic imaging of breast (principal) | CPT/HCPCS: 76641; 77061; 77065 ==

== ENCOUNTER 2024-10-12 15:51 | Outpatient (AMB) | payer BC, SELFPAY ==
--- NOTE | 2024-10-12 16:02 | MHC.OFFVIS ---
Vital Signs 10/12/24 16:06 Height 5 ft 3.75 in Weight 172 lb BMI 29.8 Respiration 16 Intake Visit Reasons: 6 mth breast exam Intake Note: Patient is seen in office for 6 month follow up visit, breast exam. Pt c/o: no concerns at the time of visit mm/us:05/15/24 MRI: 03/20/24 ([facility]) Watch Crystal Molder Required: No Dietary Service Aide: Dietary Service Aide Present Accompanied by: Self / Same As Patient Allergies Penicillins [PENICILLINS] Allergy (Unknown, Verified 10/12/24 16:15) UNKNOWN pork gelitin Allergy (Uncoded 10/12/24 16:15) Nausea Medication List - Last Reconciled 10/17/24 by Kennedy Mckeon MD albuterol sulfate 90 mcg/actuation 2 puffs inhalation Q4H PRN azelastine 2 sprays intranasal BID dextroamphetamine-amphetamine 15 mg ER 1 cap PO QAM fluticasone propionate 50 mcg/actuation 2 sprays intranasal BID PRN montelukast 10 mg PO DAILY HPI Comments Details: 49-year-old female patient being seen for a high risk breast examination. 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 She underwent a bilateral breast reduction in 2013. Her family history significant for a maternal grandmother with breast cancer. She was treated with tamoxifen for 5 years and has undergone yearly breast MRI and mammograms alternating every 6 months. Her mammogram dated 10/05/2023 revealed no mammographic evidence of malignancy (BI-RADS 2). MRI dated 03/20/2024 also revealed no MR evidence of malignancy in either breast (BI-RADS 2). A diagnostic mammogram and ultrasound of the left breast performed on 05/15/2024 revealed multiple cysts in the left breast including at the 01:00 o'clock, 02:00 o'clock, 05:00 o'clock and 06:00 o'clock locations. No suspicious findings were identified (BI-RADS 2). She is now due for her annual mammogram and we will be due for an MRI in March 2025. She is with 1 ab. She did breastfeed both her children and denies a prior history of breast infections. 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 FH: cholecystectomy Surgical History History of dilation and curettage (~2016) Hx of surgical procedure (~2011) History of eye surgery Hx of cholecystectomy (~2015) Hx of surgical procedure (~1986) Hx of surgical procedure (~1984) Hx of surgical procedure Hx of colonoscopy History of esophagogastroduodenoscopy (EGD) H/O reduction mammoplasty (~2013) Family History Other Family history unknown Social History Household Members: Family Housing: House Alcohol intake: current Alcohol intake frequency: a few times a month Patient Tobacco Use Status: Never used Tobacco service: No Current occupational status: employed Current occupation: [employer] [place] [employer] Review of Systems Const All systems reviewed & are unremarkable except as noted in HPI and below Denies chills, Denies fever(s), Denies headache(s), Denies poor appetite and Denies weakness ENT Denies headache(s) Card Denies chest pain, Denies irregular heart rhythm, Denies palpitations and Denies dyspnea Resp Denies cough, Denies excessive phlegm production and Denies dyspnea GI Denies abdominal pain, Denies bloating, Denies change in bowel habits, Denies constipation, Denies heartburn, Denies diarrhea, Denies nausea and Denies vomiting Denies urinary frequency Musc Denies back pain, Denies muscle weakness and Denies numbness Skin/Breast Denies changing lesions and Denies unusual bruising Neuro Denies headache(s), Denies numbness, Denies paresthesias and Denies weakness Psych Denies anxiety and Denies depression Endo Denies palpitations Adolfo/Lymph Denies lymphadenopathy Physical Exam Vital Signs: Last Vital Signs Resp 16 10/12/24 16:06 BMI result Body Mass Index 29.8 Const General: cooperative and no acute distress Nutritional Appearance: well nourished Orientation/consciousness: patient oriented x3 Limitations: no limitations HEENT Head: Yes normocephalic and Yes atraumatic Ears: hearing grossly normal bilaterally Neck Neck: Yes full ROM and Yes no lymphadenopathy Chest Other: Bilateral mammoplasty incisions Left breast: No skin change, no nipple retraction, no nipple discharge, no palpable mass, no enlarged lymph nodes. Right breast: No skin change, no nipple retraction, no nipple discharge, no palpable mass, no enlarged lymph nodes Resp Effort & Inspection: normal respiratory effort, no audible wheezes, no cough and no respiratory distress Cardio Jugular venous distension: no JVD GI Inspection: Yes normal to inspection Skin Other: Warm, dry, no rash Neuro Other: Mobility Assessment: 1. 3 meter assessment time (seconds):5 2. Gait observations: Normal balance and gait General: patient oriented x3 Extrem General: Yes no clubbing, cyanosis or edema Assessment & Plan Assessment & Plan (1) At increased risk for malignant neoplasm of breast: Code(s): Z91.89 - Other specified personal risk factors, not elsewhere classified (2) Lobular carcinoma in situ (LCIS) of left breast: Code(s): D05.02 - Lobular carcinoma in situ of left breast Plan 49-year-old female patient felt to be at high risk for breast cancer due to a prior pathology with LCIS and atypical ductal hyperplasia as well as a family history of breast cancer. She should continue with her yearly breast MRI and mammogram alternating every 6 months. She was encouraged to continue monthly self examinations as well as twice yearly clinical breast examination. She will be scheduled for her annual mammogram and breast MRI and follow up in 6 months for routine breast examination. She is welcome to call sooner for any new concerns. Orders: Orders MR breast BI wo/w con 03/21/25 D05.00 - Lobular carcinoma in situ of unspecified breast, N60.91 - Unspecified benign mammary dysplasia of right breast, N60.92 - Unspecified benign mammary dysplasia of left breast, Z80.3 - Family history of malignant neoplasm of breast MM screening mammo BI Today N60.02 - Solitary cyst of left breast Coding Level of Care Code Est Pt Level 3 (33549) Diagnoses At increased risk for malignant neoplasm of breast Z91.89 Lobular carcinoma in situ (LCIS) of left breast D05.02
[2024-10-12 16:06] VITALS: RESP 16; BMI 29.8
--- OUTSIDE RECORDS SUMMARY | 2024-10-12 17:03 | XMS_ITS ---
Author Organization [facility] Address [address] [place] [address] Care Team Providers Care Farm Crew Leader Name Role Phone KIMBERLI MALIK Primary Care Provider [phone] VALARIE GUADALUPE [phone] Encounters Encounter Location Date Provider Diagnosis [facility] [address] [place] [address] 12/08/2023 VALARIE GUADALUPE PLAN OF TREATMENT No Information Progress Notes * GLORIA QUESADAOB:[birth year] (49 yo F)Acc No.[id number]:12/08/2023 CPE Patient:??DIPAK SUSHMA Betito Provider:??VALARIE GUADALUPE PA-C :1975?Age:48 Y?Sex:Fe male Date:12/08/2023 Address:[address] [place], [place] [address] Pcp:KIMBERLI MALIK Subjective: * Chief Complaints: * ? * Medical History:?? Objective: Assessment: Plan: * Treatment: * Images: Billing Information: * Visit Code:?? * Procedure Codes:?? Care Plan Details* * Sign off status: Pending * Provider:??VALARIE GUADALUPE PA-C Date:??03/2024
--- OUTSIDE RECORDS SUMMARY | 2024-10-12 17:03 | XMS_ITS | Patient Health Record ---
Author Organization [facility] Address [address] [place] [address] Care Team Providers Care Dextrine Mixer Name Role Phone KIMBERLI MALIK Primary Care Provider VALARIE GUADALUPE Unavailable [phone] Luke Radha Unavailable [phone] REASON FOR REFERRAL No Information MEDICATIONS Medication SIG (Take, Route, Frequency, Duration) Notes Start Date End Date Status ProAir HFA 108 (90 Base) MCG/ACT 1 puff as needed Inhalation every 4 hrs Active Magnesium Active Rosuvastatin Calcium 5 MG 1 tablet Orally Once a day for 90 days 11/21/2021 Not-Taking Vitamin D Active Loteprednol Etabonate 0.5 % 1 drop into affected eye Ophthalmic Four times a day Not-Taking Flonase 50 MCG/ACT 1 spray in each nostril Nasally Once a day for 30 day(s) Not-Taking ZyrTEC Allergy 10 MG 1 tablet Orally Once a day for 30 day(s) PRN Active Zafirlukast 10 MG 2 tablets 1 hour before or 2 hours after meals Orally Twice a day Active Breo Ellipta Not-Noel ing Naproxen after working out Active Azelastine HCl 137 MCG/SPRAY 1 puff in each nostril Nasally Twice a day Active Ibuprofen after working out Active IMMUNIZATIONS Vaccine Route Administration Date Status Comme nts Flu vaccine no Preserv 3 and > IM Intramuscular 07/25/2018 Administered influenza IM Intramuscular 07/21/2020 Administered SOCIAL HISTORY Tobacco Use: Social History Observation Description Date Details (start date - stop date) Never Smoker NA - NA Sex Assigned At : Social History Observation Description Sex Assigned At Unknown Tobacco Use/Smoking Question Answer Notes Are you a nonsmoker 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 alcohol: social tob: denies caffeine: occasionally drug: yes exercise: regularly at a [employer] 3 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 diet: avoids 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: social tob: denies caffeine: occasionally drug: yes exercise: regularly at a [employer] 3 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 diet: avoids red meat 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 PROBLEMS Problem Type ICD Code Onset Dates Problem Status W/U Status Risk SNOMED Code Notes Problem Iron deficiency anemia, unspecified (D50.9) Active confirmed Iron deficiency anemia (69706529) Problem Other obesity (E66.8) Active confirmed Obesity (040296308) Problem Unspecified esotropia (H50.00) Active confirmed Esotropia (59697039) Problem Unspecified amblyopia, left eye (H53.002) Active confirmed Amblyopia (508399488) Problem Allergic rhinitis due to food (J30.5) Active confirmed Allergic rhinit is due to food (439292159) Problem Unspecified asthma, uncomplicated (J45.909) Active confirmed Uncomplicated asthma (disorder) (895120700) Problem Gastro-esophageal reflux disease with esophagitis (K21.0) Active confirmed Gastro-esophage al reflux disease with esophagitis (394730806) Problem Paresthesia of skin (R20.2) Active confirmed 07057082 Problem Elevated C-reactive protein (CRP) (R79.82) Active confirmed 512783232974437 Problem Body mass index (BMI) 32.0-32.9, adult (Z68.32) Active confirmed Body mass ind ex 30.00 to 34.99 (258224137619006) Problem Hyperlipidemia, unspecified hyperlipidemia type (E78.5) Active confirmed 00999791 Problem Seasonal allergies (J30.2) Active confirmed 071521640 Problem Vitamin D deficiency (E55.9) Active confirmed 21178406 Problem Tingling in extremities (R20.2) Active confirmed 32762374 Problem Attention deficit hyperactivity disorder (ADHD), unspecified ADHD type (F90.9) Active confirmed Attention defic it hyperactivity disorder (443432644) Problem BMI 33.0-33.9,adult (Z68.33) Active confirmed 982100430 Problem Paresthesia (R20.2) Active confirmed Paresthesia (10895508) Problem BMI 34.0-34.9,adult (Z68.34) Active confirmed Body mass index 30.00 to 34.99 (669126740603151) Problem Microcytic anemia (D50.9) Active confirmed 747092340 Encounters Encounter Location Date Provider Diagnosis [facility] [address] [place] [address] 12/08/2023 VALARIE GUADALUPE [facility] [address] [place] [address] 03/07/[address] [facility] [address] [facility] [address] [place] [address] 03/06/2024 Radha Svrcek PLAN OF TREATMENT Pending Test Test Name Order Date EMG/NCV ARMS 12/08/2022 EMG/NCV ARMS 01/13/2023 Ultrasound : Neck 06/07/2018 25OH VITAMIN D 01/27/2021 CBC (COMPLETE BLOOD COUNT) 01/27/2021 COMPREHENSIVE METABOLIC PANEL 01/27/2021 CRP, HIGH SENSITIVITY 11/21/2021 IRON & TIBC 01/27/2021 LIPID PANEL, STANDARD 11/21/2021 LIPID PANEL, STANDARD 11/30/2022 IRON AND TOTAL IRON BINDING CAPACITY CBC (INCLUDES DIFF/PLT) 11/30/2022 URINALYSIS, COMPLETE 11/21/2021 VITAMIN B12/FOLATE, SERUM PANEL 03/03/20 23 FERRITIN 11/30/2022 TSH 11/30/2022 VITAMIN D,25-OH,TOTAL,IA 11/21/2021 COMPLETE URINALYSIS 01/27/2021 Insurance Providers Payer Name Payer Address Payer Phone Subscriber Number Group Number Insured Name Patient Relationship to Insured Coverage Start Date Coverage End Date [employer] and [facility] [facility] [address] [place] [address] [id number] EDI MOSQUEDA Self - patient is the insured MEDICAL (GENERAL) HISTORY Medical History History ICD Code asthma anemia hyperlipidemia Breast CA Surgical History Surgery Date(Month/Year) d+c cholecystectomy mammoplasty hip orif bladder exposion diplopia correction
--- OUTSIDE RECORDS SUMMARY | 2024-10-12 17:03 | XMS_ITS ---
Author Organization [facility] Address [address] [place] [address] Care Team Providers Care Senior Mechanical Design Engineer Name Role Phone KIMBERLI MALIK Primary Care Provider VALARIE GUADALUPE Unavailable [phone] Radha Butler Unavailable [phone] Encounters Encounter Location Date Provider Diagnosis [facility] [address] [facility] [address] [place] [address] 03/06/2024 Radha Luke PLAN OF TREATMENT No Information Progress Notes * GLORIA QUESADAOB:[birth year] (49 yo F)Acc No.[id number]:03/06/2024 Patient:??SUSHMA QUESADA :1975?Age:49 Y?Sex:Fe male Address:[address] [place] [address] [place] [address] * true * Date:??
== END 2024-10-12 16:19 | disposition home or self-care (01) ==
PROVIDERS: PCP Internal Medicine; Visit Provider Surgery
DX: Z91.89 Other specified personal risk factors, not elsewhere classified (principal); D05.02 Lobular carcinoma in situ of left breast
CPT/HCPCS: 99213

== ENCOUNTER → 2024-10-12 15:51 | Outpatient (BNVA) | payer BC, SELFPAY | PROVIDERS: PCP Internal Medicine; Visit Provider Surgery | DX: D05.02 Lobular carcinoma in situ of left breast (principal); Z91.89 Other specified personal risk factors, not elsewhere classified ==

== ENCOUNTER 2025-02-27 11:26 | Outpatient (REF) | payer BC, SELFPAY ==
--- OUTSIDE RECORDS SUMMARY | 2025-02-27 12:11 | XMS_ITS ---
Author Organization [facility] [address] Address [address] [place] [address] Care Team Providers Care Combination Saw Operator Name Role Phone KIMBERLI MALIK Primary Care Provider [phone] VALARIE MADSEN Unavailable [phone] Encounters Encounter Location Date Provider Diagnosis [facility] [address] [place] [address] 12/08/2023 VALARIE MADSEN Plan Of Treatment Next Appt Details Provider Name:STUART ZIEGLER , 02/28/2025 08:00:00 AM, [address] [facility], [facility] [address], [place], [address], Progress Notes * GLORIA QUESADAOB:[birth year] (50 yo F)Acc No.[id number]:12/08/2023 CPE Patient:?QUESADA, EDI Provider:?VALARIE GUADALUPE PA-C :1975???Age:48 Y???Sex:Female D ate:12/08/2023 Address:[address] [place] [address] [facility] Pcp:KIMBERLI MALIK Subjective: * Chief Complaints: * ??? * Medical History:? Objective: * Vitals:? Assessment: Plan: * Treatment: * Images: Billing Information: * Visit Code:? * Procedure Codes:? Care Plan Details* * Electronic signature of TOO MADSEN PA-C on 02/27/2025 at 12:11 PM EDT Sign off status: Pending * Provider:MICHAEL GUADALUPE PA-C Date:?2023 Generated for Марина east/Bruno/Carey on:?02/27/2025 12:11 PM EDT
[2025-02-27 18:07] LABS: Hematocrit 38.5 % (37.0-47.0); Mean Corpuscular HGB Conc 33.8 g/dl (31.0-35.0); Mean Corpuscular Hemoglobin 28.7 pg (27.0-33.0); Mean Platelet Volume 10.1 fL (9.4-12.3); Platelet Count 232 X10*3/uL (160-400); Red Blood Count 4.53 X10*6/uL (4.20-5.50); Red Cell Distribution Width 12.9 % (11.0-16.0); White Blood Count 5.4 X10*3/uL (4.8-10.8)
[2025-02-27 18:25] LABS: Alanine Aminotransferase 26 U/L (0-31); Albumin Level 4.7 g/dL (3.5-5.0); Alkaline Phosphatase 51 U/L (39-117); Anion Gap 10 (12-20); Aspartate Amino Transferase 26 U/L (5-31); Bilirubin Total 0.7 mg/dL (0.0-1.0); Blood Urea Nitrogen 21 mg/dL (9-16); Calcium 9.3 mg/dL (8.4-10.2); Carbon Dioxide 26 mmol/L (22-29); Chloride 107 mmol/L (96-108); Cholesterol 236 mg/dL (<200); Estimated Glomerular Filt Rate > 60; Glucose Random 95 mg/dL (60-115); HDL Cholesterol 81 mg/dL (>40); Iron 104 mcg/dL (30-160); LDL Cholesterol Calculated 139 mg/dL (<100); Percent Iron Saturation 33 % (15-50); Potassium 4.2 mmol/L (3.3-5.1); Sodium 139 mmol/L (135-145); Total Iron Binding Capacity 317 mcg/dL (228-428); Total Protein 7.8 g/dL (6.5-8.0); Triglycerides 80 mg/dL (<150); Unsaturated Iron Binding 213 ug/dL
[2025-02-27 18:41] LABS: Ferritin 26 ng/mL (10-250); Vitamin D 25-OH Total 97.3 ng/mL (>30)
[2025-02-27 18:50] LABS: Vitamin B12 719 pg/mL (200-900)
[2025-02-27 20:28] LABS: Reflex LDLD? No
[2025-03-02 15:48] LABS: Methylmalonic Acid 86 nmol/L (55-335)
== END 2025-02-27 11:27 | disposition home or self-care (01) ==
LOC: HO.HKASLDS 11:26
PROVIDERS: PCP Internal Medicine; Visit Provider Physician Assistant Medical
DX: E78.5 Hyperlipidemia, unspecified (principal); R79.0 Abnormal level of blood mineral; D64.9 Anemia, unspecified; R53.83 Other fatigue; G47.9 Sleep disorder, unspecified
CPT/HCPCS: 36415; 80053; 80061; 82306; 82607; 82728; 82746; 83540; 83921; 85027

== ENCOUNTER 2025-03-08 09:36 | Outpatient (REF) | payer BC, SELFPAY ==
[2025-03-08 14:21] LABS: Influenza A PCR NEGATIVE (Negative); Influenza B PCR NEGATIVE (Negative); Resp Syncy Virus RNA Qual PCR NEGATIVE (Negative); SARS COV2 PCR INHOUSE NEGATIVE (Negative)
== END 2025-03-08 09:37 | disposition home or self-care (01) ==
LOC: HO.LNP 09:36
PROVIDERS: PCP Internal Medicine; Visit Provider Physician Assistant Medical
DX: J06.9 Acute upper respiratory infection, unspecified (principal); R09.89 Other specified symptoms and signs involving the circulatory and respiratory systems
CPT/HCPCS: 0241U; 87880

== ENCOUNTER 2025-03-08 09:36 | Outpatient (AMB) | payer BC, SELFPAY ==
[2025-03-08 09:46] VITALS: BP 122/80; PULSE 78; TEMP 36.9; O2SAT 98; BMI 30.9
--- NOTE | 2025-03-08 09:46 | MHC.OFFWIV ---
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 Patient Tobacco Use Status: Never used Tobacco Allergies Penicillins [PENICILLINS] Allergy (Unknown, Verified 03/08/25 09:50) UNKNOWN pork gelitin Allergy (Uncoded 03/08/25 09:50) Nausea HPI HPI Comments History of Present Illness Details History of Present Illness - The patient is a 50 year old female presenting with sudden onset shortness of breath and cough since yesterday. She has been having a runny nose, congestion, and a headache. 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 - The symptoms began the previous afternoon at work with persistent coughing, leading to shortness of breath upon returning home. - The patient has a known history of asthma and primarily uses an inhaler prophylactically. The inhaler was partially effective. - The patient's work colleagues suggested COVID-19 testing due to the nature of symptoms. - The patient has concurrent mild sore throat, headache, gastrointestinal upset (but no diarrhea), decreased appetite, and body aches but no fever or chest pain. - The patient has a scheduled breast MRI and seeks certainty regarding COVID-19 negativity prior to the appointment. - Previous use of prednisone was limited and not utilized with this episode. - She denies fever, chills, CP, sore throat, body aches, loss of taste or smell. She denies dizziness or weakness. She denies recent travel. Physical Exam General: Cooperative, healthy appearing, comfortable, no acute distress and well developed Head: Normal to inspection. Ears: Hearing grossly normal bilaterally. No TM bulging or redness in the canals bilaterally. Nose: Normal external nose present, moist turbinates. Face and sinus: Normal facial exam. No sinus tenderness noted. Neck: Normal visual inspection and Yes full ROM. No lymphadenopathy noted. Respiratory: Normal respiratory effort and able to speak in complete sentences. Clear to auscultation bilaterally Cardiovascular: Regular rate and rhythm. Normal S1 and S2 GI: Normal to inspection. Soft to palpation and nontender, no guarding or rebound tenderness noted. Skin: No rashes or lesions noted Patient was informed and verbally consented to the use of an ambient scribe for clinic note documentation during this visit. 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 FH: cholecystectomy Surgical History History of dilation and curettage (~2016) Hx of surgical procedure (~2011) History of eye surgery Hx of cholecystectomy (~2015) Hx of surgical procedure (~1986) Hx of surgical procedure (~1984) Hx of surgical procedure Hx of colonoscopy History of esophagogastroduodenoscopy (EGD) H/O reduction mammoplasty (~2013) Family History Other Family history unknown Social History Household Members: Family Housing: House Alcohol intake: current Alcohol intake frequency: a few times a month Patient Tobacco Use Status: Never used Tobacco service: No Current occupational status: employed Current occupation: [employer] Review of Systems Const All systems reviewed & are unremarkable except as noted in HPI and below Physical Exam Vital Signs: Last Vital Signs Temp 98.4 F 03/08/25 09:46 Pulse 78 03/08/25 09:46 BP 122/80 03/08/25 09:46 Pulse Ox 98 03/08/25 09:46 Oxygen Delivery Method Room Air 03/08/25 09:46 BMI result Body Mass Index 30.9 Results AMB Rapid Strep AMB Rapid Strep Negative Last Edit by Nichol Cantor CMA on 03/08/25 10:00 Results Reviewed Results Reviewed: Laboratory Last Values Strep Scn Rapid Clinic Negative 03/08/25 09:58 Assessment & Plan Assessment & Plan (1) URI with cough and congestion: Code(s): J06.9 - Acute upper respiratory infection, unspecified Plan Most likely URI vs asthma vs covid vs flu vs RSV Plan - Conduct COVID-19 test based on recent symptom onset and exposure concerns. - Administer symptomatic relief (Acetaminophen and Benzonatate) to address discomfort. - Prednisone reserved for significant symptom exacerbation, if it occurs. - Encourage patient to avoid strenuous activity and to monitor for escalation in respiratory symptoms, with clear steps for further intervention if necessary. - Follow-up arranged with PCP to address further care requirements and return to normal activity. Orders: Orders AMB Rapid Strep Screen Today Guadalupe Marhs NP Z13.9 - Encounter for screening, unspecified SARS-CoV2/FLU/RSV Today Amy Liu PA-C R09.89 - Other specified symptoms and signs involving the circulatory and respiratory systems Medications: New benzonatate 100 mg PO TID 7 days PRN 21 caps 0RF Cough Amy Liu PA-C prednisone 40 mg (2 x 20 mg) PO daily 5 days 10 tabs 0RF Amy Liu PA-C Coding Level of Care Code Est Pt Level 3 (77683) Diagnoses URI with cough and congestion J06.9
--- OUTSIDE RECORDS SUMMARY | 2025-03-08 10:40 | XMS_ITS | Clinical Summary ---
Author Organization [facility] it Address [address] [place] [address] Care Team Providers Care Ship Mate Name Role Phone Aleja Suarez MD Primary Care Provider [phone] Allergies Active Allergy Reactions Criticality Noted Date Comments Cat Hair Standardized Allergenic Extract 11/12/2015 cats Food Allergy Formula 11/12/2015 Food dyes Penicillin G 09/11/2013 Medications albuterol HFA (PROAIR HFA ; PROVENTIL HFA ; VENTOLIN HFA) 90 mcg/actuation inhaler Inhale 2 Puffs into the lungs every 4 hours. 6 Active cetirizine (ZyrTEC) 10 mg tablet Take 1 Tab by mouth daily. 5 Active ciprofloxacin (CIPRO) 500 mg tablet Take 500 mg by mouth 2 times daily as needed. Active fluticasone propionate (FLONASE) 50 mcg/actuation nasal spray USE 2 SPRAYS IN EACH NOSTRIL ONCE A DAY FOR 2 WEEKS. 6 Active ibuprofen (ADVIL,MOTRIN) 800 mg tablet Take 1 Tab by mouth 3 times daily. 5 Active lqjzmu-qgzw-uh eaou-ae-xhgyhmy 81.6-0.12-10.8 mg tablet Take by mouth. Active multivit-min/foli c acid/lutein (CENTRUM SILVER ORAL) Take 1 Tab by mouth daily. Active omeprazole (PriLOSEC) [address] capsule Take 20 mg by mouth daily. 6 Active tamoxifen (NOLVADEX) 20 mg chemo tablet Take 20 mg by mouth daily. Active terbinafine (LamISIL) 1 % cream Apply to affected area bid 5 Active beclomethasone dipropionate (Qvar RediHaler) 80 mcg/actuation HFA aerosol breath activated inhaler Inhale 2 Puffs into the lungs 2 times daily. 6 Active Active Problems Problem Noted Date Diagnosed Date Lobular carcinoma in situ 09/25/2024 Overview (09/25/2024): high risk patient, on tamoxifen Snoring 04/27/2017 Overview (09/25/2024): 04/2017 Diagnostic Sleep Study did not reveal sleep apnea. GERD (gastroesophageal reflux disease) 7 Moderate persistent asthma 11/14/2016 Fatty liver 05/21/2016 Overview (09/25/2024): Seen on CT of abdomen 05/17/16 Gallbladder sludge 05/21/2016 Overview (09/25/2024): Seen on ultrasound 05/2016, no calculi Vitamin D deficiency 09/11/2013 Immunizations Name Administration Dates Next Due Influenza trivalent, with preservative (Fluzone; Afluria) 6mo and older 09/04/2016 PPD Test 12/11/2015, 6,10/31/2014,2014,09/05/2014 Tdap Tetanus diptheria acell ular pertussis (Boostrix; Adacel) 7yo and older 02/04/2010 Surgical History Surgery Date Site/Laterality Comments BREAST REDUCTION PROCEDURE: NM BREAST REDUCTION OTHER SURGICAL HISTORY PROCEDURE: ---- OTHER ----; COMMENT: bladder expansion OTHER SURGICAL HISTORY Left PROCEDURE: ---- OTHER ----; COMMENT: l breast lumpectomy HIP ARTHROPLASTY PROCEDURE: HISTORICAL HIP REPLACEMENT; COMMENT: as a child Medical History Medical History Date Comments Lobular carcinoma in situ DX:Lob ular carcinoma in situ; COMMENT: high risk patient, on tamoxifen Moderate persistent asthma 11/14/2016 DX:Mo derate persistent asthma GERD (gastroesophageal reflux disease) 11/14/2016 DX:GERD (gastroesophageal reflux disease) GERD (gastroesophageal reflux disease) 11/14/2016 DX:GERD (gastroesophageal reflux disease) Family History Medical History Relation Name Comments Other: unknown Father Asthma Mother COPD, smoker, H igh cholesterol Blindness Neg Hx Cataracts Neg Hx Glaucoma Neg Hx Macular degeneration Neg Hx Strabismus Neg Hx Relation Name Status Comments Brother Alive Father Alive ? Mother Alive asthma, hyperli pidemia Sister (Age 1) spina bifid a Social History Tobacco Use Types Packs/Day Years Used Date Smoking Tobacco: Never Smokeless Tobacco: Never Alcohol Use Standard Drinks/Week Comments Yes 0.8 (1 standard drink = 0.6 oz p ure alcohol) Comments Unknown Sex and Gender Information Value Date Recorded Sex Assigned at Not on file Legal Sex Female 7:10 PM EST Gender Identity Not on file Sexual Orientation Not on file Obstetrics History Plan of Treatment Health Maintenance Due Date Last Done Comments Breast Cancer Screening 1975 COVID-19 Vaccine (#1) 01/07/1980 Hepatitis B Vaccines (1 of 3 - 19+ 3-dose series) 1994 Pneumococcal Vaccine: 50+ Ye ars (1 of 2 - PCV) 1994 Pneumococcal Vaccine: Pediat rics (0 to 5 Years) and At-Risk Patients (6 to 64 Years) (1 of 2 - PCV) 1994 Zoster Vaccines (1 of 2) 1994 Cervical Cancer Screening: P ap Smear 01/07/1996 DTaP,Tdap,and Td Vaccines (2 - Td or Tdap) 02/05/2020 02/04/2010 Colorectal Cancer Screening: Colonoscopy 08/10/2024 Depression Screening 08/10/2024 HIV Screening 08/10/2024 Hepatitis C Screening 08/10/2024 Social Influencers of Health Screening 08/10/2024 Influenza Vaccine (Season Ended) 2025 09/04/20 16 HIB Vaccines Aged Out No longer eligi ble based on patient's age to complete this topic HPV Vaccines Aged Out No longer eligi ble based on patient's age to complete this topic Hepatitis A Vaccines Aged Out No long er eligible based on patient's age to complete this topic IPV Vaccines Aged Out No longer eligi ble based on patient's age to complete this topic MMR Vaccines Aged Out No longer eligi ble based on patient's age to complete this topic Meningococcal ACWY Vaccine Aged Out N o longer eligible based on patient's age to complete this topic Meningococcal B Vaccine Aged Out No l onger eligible based on patient's age to complete this topic RSV Immunization Patients Un toño 20 months Aged Out No longer eligible b ased on patient's age to complete this topic Varicella Vaccines Aged Out No longer eligible based on patient's age to complete this topic Care Teams Ship Mate Relationship Specialty Start Date End Date Aleja Suarez MD [address] [place] [id number] PCP - General Internal Medicine 07/31/15
== END 2025-03-08 11:07 | disposition home or self-care (01) ==
PROVIDERS: PCP Internal Medicine; Visit Provider Physician Assistant Medical
DX: J06.9 Acute upper respiratory infection, unspecified (principal)

== ENCOUNTER 2025-03-09 16:07 | Outpatient (REF) | payer BC, SELFPAY ==
--- NOTE | ~2025-03-09 | MR_ITS ---
EXAMINATION: MR BREAST WITHOUT AND WITH CONTRAST, BILATERAL CLINICAL INFORMATION: History of bilateral breast LCIS and bilateral reduction mammoplasty. High risk screening surveillance. COMPARISON: Mammography May 2024 ultrasound May 2024. TECHNIQUE: MR imaging of the breast was performed using T1-T2 and fat saturated techniques. Dynamic multiphase contrast enhanced imaging was performed after administration of intravenous gadolinium contrast agent. 3-D reconstruction was generated. FINDINGS: There is heterogeneous fibroglandular breast tissue with moderate background enhancement. There are multiple bilateral T2 hyperintense nonenhancing cysts. LEFT BREAST: No suspicious enhancing masses or areas of nonmass enhancement. No architectural distortion. No internal mammary or axillary adenopathy. RIGHT BREAST: No suspicious enhancing masses or areas of nonmass enhancement. No architectural distortion. No internal mammary or axillary adenopathy. Limited views of the chest and abdomen are unremarkable. MR/MR breast BI wo/w con IMPRESSION: No MR specific evidence of malignancy. ASSESSMENT: LEFT BREAST: BI-RADS 1-Negative RIGHT BREAST: BI-RADS 1-Negative RECOMMENDATIONS: Yearly mammogram screening. Yearly MRI screening surveillance. Electronically signed by: Elissa Villalpando DO 03/11/2025 07:54 PM EDT
--- OUTSIDE RECORDS SUMMARY | 2025-03-09 16:10 | XMS_ITS | Clinical Summary ---
Author Organization [facility] it Address [address] [place] [address] Care Team Providers Care Residential Property Manager Name Role Phone Aleja Suarez MD Primary Care Provider [phone] Allergies Active Allergy Reactions Criticality Noted Date [...] by mouth 3 times daily. 5 Active bfvppu-awig-uv prws-cr-ejhimdl 81.6-0.12-10.8 mg tablet Take by mouth. Active [...] Surgery Date Site/Laterality Comments BREAST REDUCTION PROCEDURE: [place] BREAST REDUCTION OTHER SURGICAL HISTORY PROCEDURE: ---- [...] age to complete this topic Care Teams Residential Property Manager Relationship Specialty Start Date End Date Aleja Suarez MD [address] [place] [address] PCP - General Internal Medicine 07/31/15
[2025-03-09] MEDS: gadobutroL 10 ML VIAL IVPUSH (17:17)
== END 2025-03-09 16:08 | disposition home or self-care (01) ==
LOC: HO.MRI 16:07
PROVIDERS: Visit Provider Surgery
DX: D05.00 Lobular carcinoma in situ of unspecified breast (principal); N60.91 Unspecified benign mammary dysplasia of right breast; N60.92 Unspecified benign mammary dysplasia of left breast; Z80.3 Family history of malignant neoplasm of breast
CPT/HCPCS: 77049; A9585

== ENCOUNTER → 2025-03-09 16:16 | Outpatient (BNV) | payer BC, SELFPAY | PROVIDERS: Visit Provider Internal Medicine | DX: R92.323 Mammographic fibroglandular density, bilateral breasts (principal) | CPT/HCPCS: 77049 ==

== ENCOUNTER 2025-07-02 15:39 | Outpatient (AMB) | payer BC, SELFPAY ==
--- OUTSIDE RECORDS SUMMARY | 2024-03-07 04:45 | XMS_ITS ---
Author Organization [facility] [address] Address [address] [place] [address] Care Team Providers Care Plycor Operator Name Role Phone KIMBERLI MALIK Primary Care Provider [phone] VALARIE MADSEN Unavailable [phone] Encounters Encounter Location Date Provider Diagnosis [facility] [address] [place] [address] 03/07/2024 VALARIE MADSEN Plan Of Treatment Next Appt Details Provider Name:STUART ZIEGLER , 08/10/2025 08:00:00 AM, [address] [facility], [place], [facility] [address], [place], [address], Progress Notes * GLORIA QUESADAOB:[birth year] (50 yo F)Acc No.[id number]:03/07/2024 CPE Patient: Rubia WEBSTERJERROD EDI Provider: Preet GUADALUPE PA-C :1975 A ge:49 Y S ex:Female Date:03/07/2024 Address:[address] [place], [place] [id number] Pcp:KIMBERLI MALIK Subjective: * Chief Complaints: * * Medical History: Objective: * Vitals: Assessment: Plan: * Treatment: * Images: Billing Information: * Visit Code: * Procedure Codes: Care Plan Details* * Electronic signature of TOO MADSEN PA-C on 07/02/2025 at 05:44 PM EDT Sign off status: Pending * Provider: Preet GUADALUPE PA-C Date: 03/07/2024 Generated for Марина east/Bruno/eTransmitting on: 0 07/02/2025 05:44 PM EDT
--- NOTE | 2025-07-02 15:43 | MHC.OFFVIS ---
Vital Signs 07/02/25 15:51 Height 5 ft 3.75 in Weight 181 lb 4 oz BMI 31.4 BP 140/70 H Blood Pressure Location Lt brachial Position Sitting Pulse 84 Intake Visit Reasons: 6 mth breast exam Intake Note: Patient is seen in office for 6 month follow up visit, breast exam. Pt c/o: denies any concerns MRI:03/09/25 mm sched: 08/04/25 Otolaryngology Nurse Required: No Hydraulic And Plumbing Installer: Hydraulic And Plumbing Installer Present Accompanied by: Self / Same As Patient Allergies Penicillins (PENICILLINS) Allergy (Unknown, Verified 07/02/25 16:00) UNKNOWN pork gelitin Allergy (Uncoded 07/02/25 16:00) Nausea Medication List - Last Reconciled 07/03/25 by Kennedy Mckeon MD albuterol sulfate 90 mcg/actuation 2 puffs inhalation Q4H PRN azelastine 2 sprays intranasal BID benzonatate 100 mg PO TID PRN 7 days budesonide-formoterol 160-4.5 mcg/actuation (Symbicort) 2 puffs inhalation Q4H PRN dextroamphetamine-amphetamine 20 mg ER 1 cap PO QAM dextroamphetamine-amphetamine 5 mg 1 tab PO DAILY fluticasone propionate 50 mcg/actuation 2 sprays intranasal BID PRN montelukast 10 mg PO DAILY HPI Comments Details: 50-year-old female patient being seen for a high risk breast examination. 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 She underwent a bilateral breast reduction in 2013. Her family history significant for a maternal grandmother with breast cancer. She was treated with tamoxifen for 5 years and has undergone yearly breast MRI and mammograms alternating every 6 months. Breast MRI performed on 03/09/2025 revealed no MR specific evidence of malignancy (BI-RADS 1 bilateral). Mammogram dated 05/15/2024 along with an ultrasound revealed several benign cysts but no suspicious findings in either breast (BI-RADS 2). She does report a palpable forehead skin lesion which she calls her horn. She is requesting ultrasound evaluation of this nodule. She is with 1 ab. She did breastfeed both her children and denies a prior history of breast infections. 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 FH: cholecystectomy Surgical History History of dilation and curettage (~2016) Hx of surgical procedure (~2011) History of eye surgery Hx of cholecystectomy (~2015) Hx of surgical procedure (~1986) Hx of surgical procedure (~1984) Hx of surgical procedure Hx of colonoscopy History of esophagogastroduodenoscopy (EGD) H/O reduction mammoplasty (~2013) Family History Other Family history unknown Social History Household Members: Family Housing: House Alcohol intake: current Alcohol intake frequency: a few times a month Patient Tobacco Use Status: Never used Tobacco service: No Current occupational status: employed Current occupation: [employer] Neurology and Sleep Review of Systems Const All systems reviewed & are unremarkable except as noted in HPI and below Denies chills, Denies fever(s), Denies headache(s), Denies poor appetite and Denies weakness ENT Denies headache(s) Card Denies chest pain, Denies irregular heart rhythm, Denies palpitations and Denies dyspnea Resp Denies cough, Denies excessive phlegm production and Denies dyspnea GI Denies abdominal pain, Denies bloating, Denies change in bowel habits, Denies constipation, Denies heartburn, Denies diarrhea, Denies nausea and Denies vomiting Denies urinary frequency Musc Denies back pain, Denies muscle weakness and Denies numbness Skin/Breast Denies changing lesions and Denies unusual bruising Neuro Denies headache(s), Denies numbness, Denies paresthesias and Denies weakness Psych Denies anxiety and Denies depression Endo Denies palpitations Adolfo/Lymph Denies lymphadenopathy Physical Exam Vital Signs: Last Vital Signs Pulse 84 07/02/25 15:51 BP 140/70 H 07/02/25 15:51 BMI result Body Mass Index 31.4 Const General: cooperative and no acute distress Nutritional Appearance: well nourished Orientation/consciousness: patient oriented x3 Limitations: no limitations HEENT Head: Yes normocephalic and Yes atraumatic Head images:  1. Site of palpable nodule measuring approximately 1 cm diameter, firm to palpation with no redness or discharge Ears: hearing grossly normal bilaterally Neck Neck: Yes full ROM and Yes no lymphadenopathy Chest Other: Bilateral mammoplasty incisions Left breast: No skin change, no nipple retraction, no nipple discharge, no palpable mass, no enlarged lymph nodes. Right breast: No skin change, no nipple retraction, no nipple discharge, no palpable mass, no enlarged lymph nodes Resp Effort & Inspection: normal respiratory effort, no audible wheezes, no cough and no respiratory distress Cardio Jugular venous distension: no JVD GI Inspection: Yes normal to inspection Skin Other: Warm, dry, no rash Neuro Other: Mobility Assessment: 1. 3 meter assessment time (seconds):5 2. Gait observations: Normal balance and gait General: patient oriented x3 Extrem General: Yes no clubbing, cyanosis or edema Assessment & Plan Assessment & Plan (1) At increased risk for malignant neoplasm of breast: Code(s): Z91.89 - Other specified personal risk factors, not elsewhere classified (2) Lobular carcinoma in situ (LCIS) of left breast: Code(s): D05.02 - Lobular carcinoma in situ of left breast (3) Mass of face: Comment: Mid forehead Code(s): R22.0 - Localized swelling, mass and lump, head Category: Medical Plan 50-year-old female patient felt to be at high risk for breast cancer due to a prior pathology with LCIS and atypical ductal hyperplasia as well as a family history of breast cancer. She should continue with her yearly breast MRI and mammogram alternating every 6 months. She was encouraged to continue monthly self examinations as well as twice yearly clinical breast examination. Exam today revealed no suspicious findings in either breast. I have requested a sonogram of the soft tissue of the head to evaluate the palpable nodule at the forehead. She will follow up in 6 months for routine breast examination. Orders: Orders US soft tiss head and/or neck 07/02/25 R22.0 - Localized swelling, mass and lump, head Coding Level of Care Code Est Pt Level 3 (44890) Complex EM visit Add On G2211 Diagnoses At increased risk for malignant neoplasm of breast Z91.89 Lobular carcinoma in situ (LCIS) of left breast D05.02 Mass of face R22.0
[2025-07-02 15:51] VITALS: BP 140/70; PULSE 84; BMI 31.4
--- OUTSIDE RECORDS SUMMARY | 2025-07-02 17:44 | XMS_ITS | Clinical Summary ---
Author Organization [facility] Address [address] [place], [place] [id number] Phone Care Team Providers Care Health Navigator Name Role Phone Trent Rivera MD Primary Care Provider [phone] Allergies Active Allergy Reactions Criticality Noted Date Comments Gelatin Nausea Only 08/24/2019 Pork gelatins Penicillins Other (See Comments),Unknown 2016 childhood Medications OMEPRAZOLE ORAL as needed. Act chadwick FLUTICASONE PROPIONATE (FLONASE NASL) as needed. Acti ve BECLOMETHASONE DIPROPIONATE (QVAR INHL) Active MONTELUKAST SODIUM (SINGULAIR ORAL) Take mornings Active TAMOXIFEN CITRATE (TAMOXIFEN ORAL) Act chadwick dextroamphetamine -amphetamine (ADDERALL) 15 mg Tab tablet Take 15 mg by mouth daily. Active azelastine (ASTELIN) 137 mcg (0.1 %) nasal spray 1 spray by Nasal route. 2 Active albuterol 90 mcg/actuation inhaler Inhale 1-2 puffs into the lungs every 6 (six) hours as needed. 2 Active magnesium oxide (MAG-OX) 400 mg (241.3 mg elemental) tablet Take 400 mg by mouth 2 (two) times a day. Active albuterol-budeson paulino (AIRSUPRA) 90-80 mcg/actuation inhaler Inhale 2 puffs into the lungs as needed for shortness of breath/dyspnea . Active Family History Medical History Relation Comments Asthma Mother COPD Mother Relation Status Comments Mother Social History Tobacco Use Types Packs/Day Years Used Date Smoking Tobacco: Never Smokeless Tobacco: Never Tobacco Cessation:Counseling Given: Not Answered Alcohol Use Standard Drinks/Week Comments Yes 0 (1 standard drink = 0.6 oz pur e alcohol) Socially Education Answer Date Recorded Are you interested in more education? Not on jennifer e 01/29/2023 Are you concerned about learning? Not on file 01/29/2023 No 01/29/2023 No 01/29/2023 Digital Access Answer Date Recorded No 02/27/2023 No 02/27/2023 Reliable internet access at home? Not on file 02/27/2023 Device with a working camera? Not on file Comments Unknown Sex and Gender Information Value Date Recorded Sex Assigned at Female 09/08/2024 8:02 PM EST Legal Sex Female 3:33 PM EDT Gender Identity Female 09/08/2024 8:02 PM EST Sexual Orientation Not on file Last Filed Vital Signs Vital Sign Reading Time Taken Comments Blood Pressure - - Pulse - - Temperature - - Respiratory Rate - - Oxygen Saturation - - Inhaled Oxygen Concentration - - Weight 78 kg (172 lb) 09/08/2024 9:33 AM EST Height 161.9 cm (5' 3.75 ) 09/08/2024 9:33 AM ES T Body Mass Index 29.76 09/08/2024 9:33 AM EST Plan of Treatment Health Maintenance Due Date Last Done Comments LIPID PANEL 1975 DEPRESSION SCREENING 1987 HEPATITIS C SCREENING 1993 HIV ONE-TIME SCREENING (18-6 5 YEARS) 1993 PAP SMEAR 01/07/1996 SCREENING FOR DIABETES 2010 MAMMOGRAM 2015 COLOGUARD 01/07/2020 COLONOSCOPY 01/07/2020 COLORECTAL CANCER SCREENING 01/07/2020 FIT TEST 01/07/2020 FOBT 01/07/2020 SIGMOIDOSCOPY 01/07/2020 VIRTUAL COLONOSCOPY 01/07/2020 Adult Td,Tdap Booster 02/05/2020 02/04/2010 PNEUMOCOCCAL VACCINES (50+ years) (1 of 1 - PCV) 2025 ZOSTER VACCINES (1 of 2) 2025 INFLUENZA VACCINE (#1) 2025 0, 09/04/2016 COVID-19 VACCINE (3 - 2024-2 6 season) 2025 10/15/2020, 09/24/2020 SMOKING STATUS SCREENING (On ce After 26 Yrs) Completed 09/08/2024 HEPATITIS A VACCINES Aged Out No long er eligible based on patient's age to complete this topic HIB VACCINES Aged Out No longer eligi ble based on patient's age to complete this topic MENINGOCOCCAL VACCINES (ACWY) Aged Out No longer eligible based on patient's age to complete this topic MENINGOCOCCAL VACCINES (B) Aged Out N o longer eligible based on patient's age to complete this topic Medical Devices Not on file Insurance PPO [facility] PPO [facility] PPO PPO PPO [employer] OUT OF [facility] [place] [address] [place] [address] OUT OF [facility] [place] [address] [place] [address] OUT OF [facility] PPO [facility] OUT STATE PPO Care Teams Health Navigator Relationship Specialty Start Date End Date Trent Rivera MD [address] [place] [phone] PCP - General Internal Medicine 10/24/19 Additional Source Comments The information contained in this document represents components of the legal health record. It is not the complete legal health record.[facility]
--- OUTSIDE RECORDS SUMMARY | 2025-07-02 17:44 | XMS_ITS | Clinical Summary ---
Author Organization [facility] Address [address] [place] [address] Care Team Providers Care Trim Sawyer Name Role Phone Trent Rivera Primary Care Provider [phone] Allergies Active Allergy Reactions Criticality Noted Date Comments Gelatin Nausea 08/13/2021 Penicillins Unknown 08/13/2021 childhood Medications cetirizine (ZyrTEC) 10 mg tablet Take 10 mg by mouth every night. As needed. Active fluticasone propionate (FLONASE) 50 mcg/actuation nasal spray Administer 1 spray into each nostril every night. Active azelastine (ASTELIN) 137 mcg (0.1 %) nasal spray Administer 1 spray into each nostril every night. Active zafirlukast (ACCOLATE) 20 mg tablet Take 20 mg by mouth 2 times a day. Active albuterol (PROAIR HFA,VENTOLIN HFA) 90 mcg inhaler Inhale 1-2 puffs by mouth every 6 hours as needed for wheezing or shortness of breath. Use with spacer. Active ferrous sulfate 325 mg (65 mg iron) tablet Take 325 mg by mouth daily with breakfast. Active cholecalciferol (VITAMIN D3) 400 unit tablet Take by mouth once a day. Active rosuvastatin (CRESTOR) 5 mg tablet Take 5 mg by mouth once a day. Active magnesium carb,citrate,ox paulino 300 mg magnesium tablet Take 300 mg by mouth once a day. Active Active Problems Problem Noted Date Diagnosed Date Disease Of The Nails 07/17/2010 Overview (06/24/2017): NAIL BED INFECTION Social History Tobacco Use Types Packs/Day Years Used Date Smoking Tobacco: Never Smokeless Tobacco: Never Tobacco Cessation:Counseling Given: No Alcohol Use Standard Drinks/Week Comments Yes 0 (1 standard drink = 0.6 oz pur e alcohol) 1-2 drinks a week Comments No Sex and Gender Information Value Date Recorded Sex Assigned at Not on file Legal Sex Female 3:55 AM EDT Gender Identity Not on file Sexual Orientation Not on file Last Filed Vital Signs Vital Sign Reading Time Taken Comments Blood Pressure 151/80 03/11/2022 4:45 PM EDT Pulse 73 03/11/2022 4:45 PM EDT Temperature 36.9 C (98.5 F) 03/11/2022 4:45 PM EDT Respiratory Rate 18 03/11/2022 4:45 PM EDT Oxygen Saturation 93% 03/11/2022 4:45 PM EDT Inhaled Oxygen Concentration - - Weight 92.1 kg (203 lb) 03/11/2022 11:15 AM EDT Height 161.9 cm (5' 3.75 ) 03/04/2022 9:33 AM ED T Body Mass Index 35.12 03/04/2022 9:33 AM EDT Plan of Treatment Health Maintenance Due Date Last Done Comments Cologuard 1975 Colon Cancer Screening 1975 Colonoscopy 1975 FOBT / Fit Test 1975 HIV Screening 1975 Sigmoidoscopy 1975 Hepatitis B Vaccines (1 of 3 - 19+ 3-dose series) 1994 DTaP,Tdap,and Td Vaccines (2 - Td or Tdap) 02/05/2020 02/04/2010 Alcohol/Substance Use Screening 10/04/2024 Pneumococcal Vaccine: 50+ Ye ars (1 of 1 - PCV) 2025 Zoster Vaccines (1 of 2) 2025 COVID-19 Vaccine (4 - 2024- season) 2025 08/23/2021, 10/15/2020, 09/24/2020 Influenza Vaccine (#1) 2025 , 07/21/2020, 09/04/2016 RSV Vaccine (60+ years old a nd patients) (1 - 1-dose 75+ series) 2050 Insurance [employer] OUT OF STATE PPO Care Teams Trim Sawyer Relationship Specialty Start Date End Date RiveraTrent toro [address] [place] [id number] PCP - General Internal Medicine 08/12/21
--- OUTSIDE RECORDS SUMMARY | 2025-07-02 17:44 | XMS_ITS | Clinical Summary ---
Author Organization [facility] Address [address] [place] [address] Care Team Providers Care Outside Industrial Sales Representative Name Role Phone Trent Rivera MD Primary Care Provider [phone] Allergies Active Allergy Reactions Criticality Noted Date Comments Gelatin 08/24/2019 Penicillins 08/19/2017 Medications Medication Sig Dispensed Refills Start Date End Date Status fluticasone (FLONASE) 50 MCG/ACT nasal spray spray/apply 1 spray in each nostril daily. 0 Active EPINEPHrine 0.3 MG/0.3ML SOAJ Inject 0.3 mg into the muscle once. 0 Active cetirizine (ZYRTEC) 5 MG tablet Take 5 mg by mouth daily. 0 Active Meth-Hyo-M Bl-Evan Acd-Ph Kishan (HYOPHEN PO) Take by mouth. 0 Active montelukast (SINGULAIR) 10 MG tablet Take 10 mg by mouth every night at bedtime. 0 Active omeprazole (PRILOSEC) 20 MG capsule Take 20 mg by mouth daily. 0 Active albuterol (PROAIR HFA) 108 (90 BASE) MCG/ACT inhaler Inhale 2 puffs into the lungs every 6 (six) hours as needed for wheezing. 0 Active Azelastine-Fluticasone (DYMISTA) 137-50 MCG/ACT SUSP spray or apply inside Nose every night at bedtime. 0 Active ciprofloxacin (CIPRO) 500 MG tablet Take 500 mg by mouth 2 (two) times a day. 0 Active Probiotic Product (PROBIOTIC DAILY PO) Take by mouth. 0 Active Magnesium Oxide 400 (241.3 Mg) MG TABS tablet Take 400 mg by mouth 2 (two) times a day. 0 Active Active Problems Problem Noted Date Diagnosed Date Obesity (BMI 30.0-34.9) 09/02/2019 Increased risk of breast cancer 08/25/2017 Lobular carcinoma in situ (LCIS) of left breast 08/19/2017 Cancer Staging:Clinical stage from 11/14/2013:Stage 0(Tis (LCIS), N0, M0) - Signed by Demetrio Mireles MD on 08/27/2018 Overview: Overview: high risk patient, on tamoxifen Moderate persistent asthma 11/14/2016 GERD (gastroesophageal reflux disease) 7 Fatty liver 05/21/2016 Overview: Overview: Seen on CT of abdomen 05/17/16 Family History Medical History Relation Name Comments Breast cancer Neg Hx Ovarian cancer Neg Hx Social History Tobacco Use Types Packs/Day Years Used Date Smoking Tobacco: Never Smokeless Tobacco: Never Alcohol Use Standard Drinks/Week Comments Yes 0 (1 standard drink = 0.6 oz pur e alcohol) occasional Sex and Gender Information Value Date Recorded Sex Assigned at Not on file Gender Identity Not on file Sexual Orientation Not on file Last Filed Vital Signs Vital Sign Reading Time Taken Comments Blood Pressure 129/64 08/24/2019 1:12 PM EST Pulse 73 08/24/2019 1:12 PM EST Temperature 36.4 C (97.5 F) 08/24/2019 1:12 PM EST Respiratory Rate - - Oxygen Saturation - - Inhaled Oxygen Concentration - - Weight 89 kg (196 lb 3.2 oz) 08/24/2019 1:12 PM EST Height 160 cm (5' 3 ) 08/24/2019 1:12 PM EST Body Mass Index 34.76 08/24/2019 1:12 PM EST Plan of Treatment Health Maintenance Due Date Last Done Comments Hepatitis B Vaccines (1 of 3 - 3-dose series) 1975 Hepatitis C Screening 1975 COVID-19 Vaccine (#1) 01/07/1980 Pneumococcal Vaccine (1 of 2 - PCV) 1981 Depression Screening 1987 Preventative Health Evaluation 1993 Shingrix-Zoster Vaccine (1 of 2) 1994 Cervical Cancer Screening (P ap Smear) 01/07/1996 Colon Cancer Screening (Colonoscopy) 01/07/2020 DTap / Tdap / Td (2 - Td or Tdap) 02/05/2020 010 Breast Cancer Screening (Mammogram) 2025 Influenza Vaccine (#1) 2025 09/04/2016 RSV Ped < 20 months Aged Out No longe r eligible based on patient's age to complete this topic Care Teams Outside Industrial Sales Representative Relationship Specialty Start Date End Date Trent Rivera MD [address] [place] [address] PCP - General Internal Medicine 08/18/18
--- OUTSIDE RECORDS SUMMARY | 2025-07-02 17:44 | XMS_ITS | Patient Health Record ---
Author Organization [facility] [address] Address [address] [place] [address] Care Team Providers Care Furniture Assembler Name Role Phone KIMBERLI RIVERA Primary Care Provider VALARIE MADSEN Unavailable [phone] STUART ZIEGLER Unavailable [phone] Allergies Allergen (clinical drug ingredient) Drug/Non Drug Allergy documented on EMR Reaction Allergy Type Onset Date Status gelatin (uncoded) Unknown Allergy 12/22/2019 A ctive pcn (uncoded) Unknown Allergy Active Reason For Referral No Information Medications Medication SIG (Take, Route, Frequency, Duration) Notes Start Date End Date Status Airsupra 90-80 MCG/ACT 2 puffs as needed Inhalation Six times a day Active Zafirlukast 10 MG 2 tablets 1 hour before or 2 hours after meals Orally Twice a day Not-Taking Magnesium Active ProAir HFA 108 (90 Base) MCG/ACT 1 puff as needed Inhalation every 4 hrs Not-Taking Ibuprofen after working out Not-Taking Amphetamine-Dextroamp het ER 20 MG Oral; Duration: 28 Days Active Amphetamine-Dextroamp hetamine 5 MG Oral; Duration: 30 Days Active ZyrTEC Allergy 10 MG 1 tablet Orally Once a day; Duration: 30 day(s) PRN Active Montelukast Sodium 10 MG Oral; Duration: 90 Days Active Naproxen after working out Active Flonase 50 MCG/ACT 1 spray in each nostril Nasally Once a day; Duration: 30 day(s) Not-Taking Azelastine HCl 137 MCG/SPRAY 1 puff in each nostril Nasally Twice a day Active Rosuvastatin Calcium 5 MG 1 tablet Orally Once a day; Duration: 90 days 11/21/2021 Not-Taking Loteprednol Etabonate 0.5 % 1 drop into affected eye Ophthalmic Four times a day Not-Taking Vitamin D Active Breo Ellipta Not-Noel ing Immunizations Vaccine Route Administration Date Status Comme nts Flu vaccine no Preserv 3 and > IM Intramuscular 07/25/2018 Administered influenza IM Intramuscular 07/21/2020 Administered Social History Tobacco Use: Social History Observation Description Date Details (start date - stop date) Never Smoker NA - NA Tobacco Use/Smoking Question Answer Notes 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 tob: denies caffeine: occasionally drug: yes exercise: regularly at a [employer] 3 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 diet: avoids 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 alcohol: social tob: denies caffeine: occasionally drug: yes exercise: regularly at a [employer] 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 diet: avoids 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: social tob: denies caffeine: occasionally drug: yes exercise: regularly at a [employer] 3 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 diet: avoids red meat 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 Problems Problem Type SNOMED Code ICD Code Onset Dates Problem Status W/U Status Risk Notes Problem Iron deficiency anemia (45801281) Iron deficiency anemia, unspecified (D50.9) Active confirmed Problem Vitamin D deficiency (96966874) Vitamin D deficiency, unspecified (E55.9) Active confirmed Problem Obesity (222185825) Other obesity (E66.8) Active confirmed Problem Mixed hyperlipidemia (656850147) Mixed hyperlipidemia (E78.2) Active confirmed Problem Esotropia (20953799) Unspecified esotropia (H50.00) Active confirmed Problem Amblyopia (050097700) Unspecified amblyopia, left eye (H53.002) Active confirmed Problem Allergic rhinitis due to food (554314904) Allergic rhinitis due to food (J30.5) Active confirmed Problem Mild intermittent asthma (944992910) Mild intermittent asthma, uncomplicated (J45.20) Active confirmed Problem Uncomplicated asthma (disorder) (137108626) Unspecified asthma, uncomplicated (J45.909) Active confirmed Problem Gastro-esophageal reflux disease with esophagitis (522954001) Gastro-esophageal reflux disease with esophagitis (K21.0) Active confirmed Problem Paresthesia (finding) (22185184) Paresthesia of skin (R20.2) Active confirmed Problem C-reactive protein abnormal (489013067) Elevated C-reactive protein (CRP) (R79.82) Active confirmed Problem Body mass index 30.00 to 34.99 (513312175388440) Body mass index (BMI) 32.0-32.9, adult (Z68.32) Active confirmed Problem Hyperlipidaemia (84039458) Hyperlipidemia, unspecified hyperlipidemia type (E78.5) Active confirmed Problem Acquired hypothyroidism (591428859) Acquired hypothyroidism (E03.9) Active confirmed Problem Seasonal allergy (826140241) Seasonal allergies (J30.2) Active confirmed Problem Vitamin D deficiency (80135383) Vitamin D deficiency (E55.9) Active confirmed Problem Skin sensation disturbance (53284727) Tingling in extremities (R20.2) Active confirmed Problem Restless legs syndrome (26200285) Restless leg syndrome (G25.81) Active confirmed Problem Attention deficit hyperactivity disorder (092338093) Attention deficit hyperactivity disorder (ADHD), unspecified ADHD type (F90.9) Active confirmed Problem Obese class I (775443929980632) BMI 33.0-33.9,adult (Z68.33) Active confirmed Problem Paresthesia (72891993) Paresthesia (R20.2) Active confirmed Problem Body mass index 30.00 to 34.99 (445814956783548) BMI 34.0-34.9,adult (Z68.34) Active confirmed Problem Microcytic anemia (009103593) Microcytic anemia (D50.9) Active confirmed Problem Attention deficit hyperactivity disorder (522788040) ADHD (attention deficit hyperactivity disorder), combined type (F90.2) Active confirmed Vital Signs Heart Rate 83 /min 02/28/2025 Oximetry 98 % 02/28/2025 Blood pressure diastolic 82 mm Hg 02/28/2025 Height 64 in 02/28/2025 Blood pressure systolic 126 mm Hg 02/28/2025 Weight 178 lbs 02/28/2025 BMI 30.55 kg/m2 02/28/2025 Encounters Encounter Location Date Provider Diagnosis [facility] [address] [place] [id number] 02/28/2025 TSUART ZIEGLER Annual physical exam Z00.00 ; Mixed hyperlipidemia E78.2 ; Seasonal allergies J30.2 ; Mild intermittent asthma, uncomplicated J45.20 ; Restless leg syndrome G25.81 ; Lobular carcinoma of breast, unspecified laterality C50.919 ; Laryngopharyngeal reflux (LPR) K21.9 ; ADHD (attention deficit hyperactivity disorder), combined type F90.2 ; Depression screening Z13.31 and Screening for substance abuse Z13.89 [facility] [address] [facility] [address] [place] [address] 02/07/2025 STUART ZIEGLER Annual physical exam Z00.00 ; Hyperlipidemia, unspecified hyperlipidemia type E78.5 ; Acquired hypothyroidism E03.9 and Vitamin D deficiency, unspecified E55.9 [facility] [address] [place] [address] 02/28/2025 STUARTCALI ZIEGLER [facility] [address] [facility] [address] [place] [address] 03/13/2025 STUART ZIEGLER Assessments Encounter Date Diagnosis (ICD Code) Assessment Notes Treatment Notes Treatment Clinical Notes Section Notes 02/28/2025 Annual physical exam (ICD-10 - Z00.00) Patient seen and examined. Comprehensive discussion was done on the following. # Seasonal allergies: Continue azelastine 137 mcg spray 1 puff in each nostril twice daily. Continue Zyrtec 10 mg once daily as needed for seasonal allergies. # Asthma: Patient has allergy and cough mediated asthma. Continue Airsupra 2 puffs as needed 6 times daily for shortness of breath or wheezing. Continue montelukast 10 mg daily. Patient had pulmonary function testing performed 2021, spirometry is normal, no significant response to bronchodilator. Lung volumes are normal. Carbon monoxide using capacity is near lower limit of normal. # Restless leg syndrome: Recent iron studies are unremarkable. Normal ferritin, serum iron concentration, and TIBC. Patient underwent EMG of the lower extremities on 03/25/2023, otherwise within normal limits, no findings to suggest symptomology. Has been taking magnesium supplements. Reports poor tolerance to iron supplements in the past. # Bilateral breast lobular carcinoma in situ: Patient is status post reduction mammoplasty. Has also completed a 5-year course of tamoxifen. Had been following primarily with [facility] breast services. Alternates between annual breast MRI and mammogram every 6 months. MRI in March 2025. # Hyperlipidemia: Lipid panel in 2022 significant for total cholesterol 227 and LDL 140. Updated lipid panel on 02/27/2025 is significant for total cholesterol 235, triglycerides 80, LDL 139, HDL 81. Discussed importance of diet and lifestyle to improve cholesterol and prevent other comorbidities. Will continue to monitor. # ADHD: Patient follows with [facility] mental health. Continue Adderall 20 mg once daily in the morning and Adderall 5 mg in the evening. Continue follow-up with specialist. # Laryngopharyngeal reflux: Patient reports that she had suspected GERD for a period of time however has been following with an ENT specialist who suspects LPR. She has been prescribed a calcium alginate to be used after meals by specialist. Reports infrequent use of the medication. Continue follow-up with specialist. 1. Nutrition: It is important to follow a healthy diet based on lots of vegetables and legumes and good fat. Avoid processed food and processed carbohydrates. Prepare your own meals. Read labels and avoid high fructose corn syrup, processed chemicals added to increase shelf life and preprepared meals. Avoid fast foods. Eat slowly and plan meals for a week. Try to count calories and be mindful off daily calorie intake. Get into the habit of keeping an eye on your weight by using an appropriate scale. Learn to log exercise and discussed fitness Apps like [employer] - It's what's in storepal or Cronometer which can help keep log off calories taken versus calories burned. Local food should be preferred. Discussed Dirty Dozen Versus Clean Fifteen. Discussed healthy supplements like fish oil, Tumeric, Curcumin, Melatonin, Resveratrol, Probiotics, Vitamin-D, Alpha-Lipoic acid, Vitamin-D and coconut oil. 2. It is important to exercise regularly. Is a good habit to walk at least 30 minutes a day. Gentle weightlifting with standard precautions to protect the back. Finding activity like cycling or hiking and get into the habit of engaging in it. Stretching before and after the exercises important. It is also important to contact me if there are any problems like shortness of breath, chest pain, back pain and joint or muscle pain associated with the exercise. 3. Discussed age appropriate screening guidelines. Colonoscopy needs to start at age 50 with stool for occult blood as appropriate. There is a new test that can test for genetic abnormalities in the stool sample, Cologuard. This would not replace a colonoscopy but could be used as a screening tool for patients who do not want a colonoscopy. We discussed the importance of early detection of colon cancer. 4. Discussed current guidelines with respect to breast examination, mammogram and pap smear for early detection of breast and cervical cancer. Patient advised to follow up with these appointments. 5. Discussed safe driving and no use of smart phone while driving 6. Age-appropriate immunizations were discussed. A tetanus booster is needed every 10 years. Flu vaccine is recommended every year just before the start of the flu season. Shingles vaccine is recommended after age 50 but not all insurances cover it. Pneumonia vaccine is given after age 65 unless there are certain comorbidities for which it is started earlier. 7. Diagnostic labs were discussed. These could include/not limited to CBC CMP and lipids with fasting blood glucose and insulin levels. Vitamin D and hemoglobin A1c testing might be appropriate. All questions have been answered to patient's satisfaction. Patient verbalized understanding of diagnosis and treatments explained. Advised to call sooner prior to next visit it any questions/concerns arise. Case discussed with collaborating physician Sheng Rivera who reviewed the assessment and plan. Chart, medications, labs, vital signs reviewed. Dictation was accomplished with the use of [employer] voice recognition software, which is prone to medical misidentifications and grammatical errors. This are unintentional and the practitioner does try to identify and correct these, but some could still be present. Please do not hesitate to contact practitioner for clarification. 02/07/2025 Annual physical exam (ICD-10 - Z00.00) 02/28/2025 Mixed hyperlipidemia (ICD-10 - E78.2) Patient seen and examined. Comprehensive discussion was done on the following. # Seasonal allergies: Continue azelastine 137 mcg spray 1 puff in each nostril twice daily. Continue Zyrtec 10 mg once daily as needed for seasonal allergies. # Asthma: Patient has allergy and cough mediated asthma. Continue Airsupra 2 puffs as needed 6 times daily for shortness of breath or wheezing. Continue montelukast 10 mg daily. Patient had pulmonary function testing performed 2021, spirometry is normal, no significant response to bronchodilator. Lung volumes are normal. Carbon monoxide using capacity is near lower limit of normal. # Restless leg syndrome: Recent iron studies are unremarkable. Normal ferritin, serum iron concentration, and TIBC. Patient underwent EMG of the lower extremities on 03/25/2023, otherwise within normal limits, no findings to suggest symptomology. Has been taking magnesium supplements. Reports poor tolerance to iron supplements in the past. # Bilateral breast lobular carcinoma in situ: Patient is status post reduction mammoplasty. Has also completed a 5-year course of tamoxifen. Had been following primarily with [facility] breast services. Alternates between annual breast MRI and mammogram every 6 months. MRI in March 2025. # Hyperlipidemia: Lipid panel in 2022 significant for total cholesterol 227 and LDL 140. Updated lipid panel on 02/27/2025 is significant for total cholesterol 235, triglycerides 80, LDL 139, HDL 81. Discussed importance of diet and lifestyle to improve cholesterol and prevent other comorbidities. Will continue to monitor. # ADHD: Patient follows with [facility] mental health. Continue Adderall 20 mg once daily in the morning and Adderall 5 mg in the evening. Continue follow-up with specialist. # Laryngopharyngeal reflux: Patient reports that she had suspected GERD for a period of time however has been following with an ENT specialist who suspects LPR. She has been prescribed a calcium alginate to be used after meals by specialist. Reports infrequent use of the medication. Continue follow-up with specialist. 1. Nutrition: It is important to follow a healthy diet based on lots of vegetables and legumes and good fat. Avoid processed food and processed carbohydrates. Prepare your own meals. Read labels and avoid high fructose corn syrup, processed chemicals added to increase shelf life and preprepared meals. Avoid fast foods. Eat slowly and plan meals for a week. Try to count calories and be mindful off daily calorie intake. Get into the habit of keeping an eye on your weight by using an appropriate scale. Learn to log exercise and discussed fitness Apps like [employer] or [employer] which can help keep log off calories taken versus calories burned. Local food should be preferred. Discussed Dirty Dozen Versus Clean Fifteen. Discussed healthy supplements like fish oil, Tumeric, Curcumin, Melatonin, Resveratrol, Probiotics, Vitamin-D, Alpha-Lipoic acid, Vitamin-D and coconut oil. 2. It is important to exercise regularly. Is a good habit to walk at least 30 minutes a day. Gentle weightlifting with standard precautions to protect the back. Finding activity like cycling or hiking and get into the habit of engaging in it. Stretching before and after the exercises important. It is also important to contact me if there are any problems like shortness of breath, chest pain, back pain and joint or muscle pain associated with the exercise. 3. Discussed age appropriate screening guidelines. Colonoscopy needs to start at age 50 with stool for occult blood as appropriate. There is a new test that can test for genetic abnormalities in the stool sample, Cologuard. This would not replace a colonoscopy but could be used as a screening tool for patients who do not want a colonoscopy. We discussed the importance of early detection of colon cancer. 4. Discussed current guidelines with respect to breast examination, mammogram and pap smear for early detection of breast and cervical cancer. Patient advised to follow up with these appointments. 5. Discussed safe driving and no use of smart phone while driving 6. Age-appropriate immunizations were discussed. A tetanus booster is needed every 10 years. Flu vaccine is recommended every year just before the start of the flu season. Shingles vaccine is recommended after age 50 but not all insurances cover it. Pneumonia vaccine is given after age 65 unless there are certain comorbidities for which it is started earlier. 7. Diagnostic labs were discussed. These could include/not limited to CBC CMP and lipids with fasting blood glucose and insulin levels. Vitamin D and hemoglobin A1c testing might be appropriate. All questions have been answered to patient's satisfaction. Patient verbalized understanding of diagnosis and treatments explained. Advised to call sooner prior to next visit it any questions/concerns arise. Case discussed with collaborating physician Sheng Rivera who reviewed the assessment and plan. Chart, medications, labs, vital signs reviewed. Dictation was accomplished with the use of [employer] voice recognition software, which is prone to medical misidentifications and grammatical errors. This are unintentional and the practitioner does try to identify and correct these, but some could still be present. Please do not hesitate to contact practitioner for clarification. 02/28/2025 Seasonal allergies (ICD-10 - J30.2) Patient seen and examined. Comprehensive discussion was done on the following. # Seasonal allergies: Continue azelastine 137 mcg spray 1 puff in each nostril twice daily. Continue Zyrtec 10 mg once daily as needed for seasonal allergies. # Asthma: Patient has allergy and cough mediated asthma. Continue Airsupra 2 puffs as needed 6 times daily for shortness of breath or wheezing. Continue montelukast 10 mg daily. Patient had pulmonary function testing performed 2021, spirometry is normal, no significant response to bronchodilator. Lung volumes are normal. Carbon monoxide using capacity is near lower limit of normal. # Restless leg syndrome: Recent iron studies are unremarkable. Normal ferritin, serum iron concentration, and TIBC. Patient underwent EMG of the lower extremities on 03/25/2023, otherwise within normal limits, no findings to suggest symptomology. Has been taking magnesium supplements. Reports poor tolerance to iron supplements in the past. # Bilateral breast lobular carcinoma in situ: Patient is status post reduction mammoplasty. Has also completed a 5-year course of tamoxifen. Had been following primarily with [facility] breast services. Alternates between annual breast MRI and mammogram every 6 months. MRI in March 2025. # Hyperlipidemia: Lipid panel in 2022 significant for total cholesterol 227 and LDL 140. Updated lipid panel on 02/27/2025 is significant for total cholesterol 235, triglycerides 80, LDL 139, HDL 81. Discussed importance of diet and lifestyle to improve cholesterol and prevent other comorbidities. Will continue to monitor. # ADHD: Patient follows with [facility] mental health. Continue Adderall 20 mg once daily in the morning and Adderall 5 mg in the evening. Continue follow-up with specialist. # Laryngopharyngeal reflux: Patient reports that she had suspected GERD for a period of time however has been following with an ENT specialist who suspects LPR. She has been prescribed a calcium alginate to be used after meals by specialist. Reports infrequent use of the medication. Continue follow-up with specialist. 1. Nutrition: It is important to follow a healthy diet based on lots of vegetables and legumes and good fat. Avoid processed food and processed carbohydrates. Prepare your own meals. Read labels and avoid high fructose corn syrup, processed chemicals added to increase shelf life and preprepared meals. Avoid fast foods. Eat slowly and plan meals for a week. Try to count calories and be mindful off daily calorie intake. Get into the habit of keeping an eye on your weight by using an appropriate scale. Learn to log exercise and discussed fitness Apps like [employer] - It's what's in storepal or [employer] which can help keep log off calories taken versus calories burned. Local food should be preferred. Discussed Dirty Dozen Versus Clean Fifteen. Discussed healthy supplements like fish oil, Tumeric, Curcumin, Melatonin, Resveratrol, Probiotics, Vitamin-D, Alpha-Lipoic acid, Vitamin-D and coconut oil. 2. It is important to exercise regularly. Is a good habit to walk at least 30 minutes a day. Gentle weightlifting with standard precautions to protect the back. Finding activity like cycling or hiking and get into the habit of engaging in it. Stretching before and after the exercises important. It is also important to contact me if there are any problems like shortness of breath, chest pain, back pain and joint or muscle pain associated with the exercise. 3. Discussed age appropriate screening guidelines. Colonoscopy needs to start at age 50 with stool for occult blood as appropriate. There is a new test that can test for genetic abnormalities in the stool sample, Cologuard. This would not replace a colonoscopy but could be used as a screening tool for patients who do not want a colonoscopy. We discussed the importance of early detection of colon cancer. 4. Discussed current guidelines with respect to breast examination, mammogram and pap smear for early detection of breast and cervical cancer. Patient advised to follow up with these appointments. 5. Discussed safe driving and no use of smart phone while driving 6. Age-appropriate immunizations were discussed. A tetanus booster is needed every 10 years. Flu vaccine is recommended every year just before the start of the flu season. Shingles vaccine is recommended after age 50 but not all insurances cover it. Pneumonia vaccine is given after age 65 unless there are certain comorbidities for which it is started earlier. 7. Diagnostic labs were discussed. These could include/not limited to CBC CMP and lipids with fasting blood glucose and insulin levels. Vitamin D and hemoglobin A1c testing might be appropriate. All questions have been answered to patient's satisfaction. Patient verbalized understanding of diagnosis and treatments explained. Advised to call sooner prior to next visit it any questions/concerns arise. Case discussed with collaborating physician Sheng Rivera who reviewed the assessment and plan. Chart, medications, labs, vital signs reviewed. Dictation was accomplished with the use of [employer] voice recognition software, which is prone to medical misidentifications and grammatical errors. This are unintentional and the practitioner does try to identify and correct these, but some could still be present. Please do not hesitate to contact practitioner for clarification. 02/07/2025 Hyperlipidemia, unspecified hyperlipidemia type (ICD-10 - E78.5) 02/07/2025 Acquired hypothyroidism (ICD-10 - E03.9) 02/28/2025 Mild intermittent asthma, uncomplicated (ICD-10 - J45.20) Patient seen and examined. Comprehensive discussion was done on the following. # Seasonal allergies: Continue azelastine 137 mcg spray 1 puff in each nostril twice daily. Continue Zyrtec 10 mg once daily as needed for seasonal allergies. # Asthma: Patient has allergy and cough mediated asthma. Continue Airsupra 2 puffs as needed 6 times daily for shortness of breath or wheezing. Continue montelukast 10 mg daily. Patient had pulmonary function testing performed 2021, spirometry is normal, no significant response to bronchodilator. Lung volumes are normal. Carbon monoxide using capacity is near lower limit of normal. # Restless leg syndrome: Recent iron studies are unremarkable. Normal ferritin, serum iron concentration, and TIBC. Patient underwent EMG of the lower extremities on 03/25/2023, otherwise within normal limits, no findings to suggest symptomology. Has been taking magnesium supplements. Reports poor tolerance to iron supplements in the past. # Bilateral breast lobular carcinoma in situ: Patient is status post reduction mammoplasty. Has also completed a 5-year course of tamoxifen. Had been following primarily with [facility] breast services. Alternates between annual breast MRI and mammogram every 6 months. MRI in March 2025. # Hyperlipidemia: Lipid panel in 2022 significant for total cholesterol 227 and LDL 140. Updated lipid panel on 02/27/2025 is significant for total cholesterol 235, triglycerides 80, LDL 139, HDL 81. Discussed importance of diet and lifestyle to improve cholesterol and prevent other comorbidities. Will continue to monitor. # ADHD: Patient follows with [facility] for mental health. Continue Adderall 20 mg once daily in the morning and Adderall 5 mg in the evening. Continue follow-up with specialist. # Laryngopharyngeal reflux: Patient reports that she had suspected GERD for a period of time however has been following with an ENT specialist who suspects LPR. She has been prescribed a calcium alginate to be used after meals by specialist. Reports infrequent use of the medication. Continue follow-up with specialist. 1. Nutrition: It is important to follow a healthy diet based on lots of vegetables and legumes and good fat. Avoid processed food and processed carbohydrates. Prepare your own meals. Read labels and avoid high fructose corn syrup, processed chemicals added to increase shelf life and preprepared meals. Avoid fast foods. Eat slowly and plan meals for a week. Try to count calories and be mindful off daily calorie intake. Get into the habit of keeping an eye on your weight by using an appropriate scale. Learn to log exercise and discussed fitness Apps like [employer] or [employer] which can help keep log off calories taken versus calories burned. Local food should be preferred. Discussed Dirty [employer]zen [employer] Clean Fifteen. Discussed healthy supplements like fish oil, Tumeric, Curcumin, Melatonin, Resveratrol, Probiotics, Vitamin-D, Alpha-Lipoic acid, Vitamin-D and coconut oil. 2. It is important to exercise regularly. Is a good habit to walk at least 30 minutes a day. Gentle weightlifting with standard precautions to protect the back. Finding activity like cycling or hiking and get into the habit of engaging in it. Stretching before and after the exercises important. It is also important to contact me if there are any problems like shortness of breath, chest pain, back pain and joint or muscle pain associated with the exercise. 3. Discussed age appropriate screening guidelines. Colonoscopy needs to start at age 50 with stool for occult blood as appropriate. There is a new test that can test for genetic abnormalities in the stool sample, Cologuard. This would not replace a colonoscopy but could be used as a screening tool for patients who do not want a colonoscopy. We discussed the importance of early detection of colon cancer. 4. Discussed current guidelines with respect to breast examination, mammogram and pap smear for early detection of breast and cervical cancer. Patient advised to follow up with these appointments. 5. Discussed safe driving and no use of smart phone while driving 6. Age-appropriate immunizations were discussed. A tetanus booster is needed every 10 years. Flu vaccine is recommended every year just before the start of the flu season. Shingles vaccine is recommended after age 50 but not all insurances cover it. Pneumonia vaccine is given after age 65 unless there are certain comorbidities for which it is started earlier. 7. Diagnostic labs were discussed. These could include/not limited to CBC CMP and lipids with fasting blood glucose and insulin levels. Vitamin D and hemoglobin A1c testing might be appropriate. All questions have been answered to patient's satisfaction. Patient verbalized understanding of diagnosis and treatments explained. Advised to call sooner prior to next visit it any questions/concerns arise. Case discussed with collaborating physician Sheng Rivera who reviewed the assessment and plan. Chart, medications, labs, vital signs reviewed. Dictation was accomplished with the use of [employer] voice recognition software, which is prone to medical misidentifications and grammatical errors. This are unintentional and the practitioner does try to identify and correct these, but some could still be present. Please do not hesitate to contact practitioner for clarification. 02/07/2025 Vitamin D deficiency, unspecified (ICD-10 - E55.9) 02/28/2025 Restless leg syndrome (ICD-10 - G25.81) Patient seen and examined. Comprehensive discussion was done on the following. # Seasonal allergies: Continue azelastine 137 mcg spray 1 puff in each nostril twice daily. Continue Zyrtec 10 mg once daily as needed for seasonal allergies. # Asthma: Patient has allergy and cough mediated asthma. Continue Airsupra 2 puffs as needed 6 times daily for shortness of breath or wheezing. Continue montelukast 10 mg daily. Patient had pulmonary function testing performed 2021, spirometry is normal, no significant response to bronchodilator. Lung volumes are normal. Carbon monoxide using capacity is near lower limit of normal. # Restless leg syndrome: Recent iron studies are unremarkable. Normal ferritin, serum iron concentration, and TIBC. Patient underwent EMG of the lower extremities on 03/25/2023, otherwise within normal limits, no findings to suggest symptomology. Has been taking magnesium supplements. Reports poor tolerance to iron supplements in the past. # Bilateral breast lobular carcinoma in situ: Patient is status post reduction mammoplasty. Has also completed a 5-year course of tamoxifen. Had been following primarily with [facility] breast services. Alternates between annual breast MRI and mammogram every 6 months. MRI in March 2025. # Hyperlipidemia: Lipid panel in 2022 significant for total cholesterol 227 and LDL 140. Updated lipid panel on 02/27/2025 is significant for total cholesterol 235, triglycerides 80, LDL 139, HDL 81. Discussed importance of diet and lifestyle to improve cholesterol and prevent other comorbidities. Will continue to monitor. # ADHD: Patient follows with [facility] for mental health. Continue Adderall 20 mg once daily in the morning and Adderall 5 mg in the evening. Continue follow-up with specialist. # Laryngopharyngeal reflux: Patient reports that she had suspected GERD for a period of time however has been following with an ENT specialist who suspects LPR. She has been prescribed a calcium alginate to be used after meals by specialist. Reports infrequent use of the medication. Continue follow-up with specialist. 1. Nutrition: It is important to follow a healthy diet based on lots of vegetables and legumes and good fat. Avoid processed food and processed carbohydrates. Prepare your own meals. Read labels and avoid high fructose corn syrup, processed chemicals added to increase shelf life and preprepared meals. Avoid fast foods. Eat slowly and plan meals for a week. Try to count calories and be mindful off daily calorie intake. Get into the habit of keeping an eye on your weight by using an appropriate scale. Learn to log exercise and discussed fitness Apps like [employer] or [employer] which can help keep log off calories taken versus calories burned. Local food should be preferred. Discussed Dirty Dozen Versus Clean Fifteen. Discussed healthy supplements like fish oil, Tumeric, Curcumin, Melatonin, Resveratrol, Probiotics, Vitamin-D, Alpha-Lipoic acid, Vitamin-D and coconut oil. 2. It is important to exercise regularly. Is a good habit to walk at least 30 minutes a day. Gentle weightlifting with standard precautions to protect the back. Finding activity like cycling or hiking and get into the habit of engaging in it. Stretching before and after the exercises important. It is also important to contact me if there are any problems like shortness of breath, chest pain, back pain and joint or muscle pain associated with the exercise. 3. Discussed age appropriate screening guidelines. Colonoscopy needs to start at age 50 with stool for occult blood as appropriate. There is a new test that can test for genetic abnormalities in the stool sample, Cologuard. This would not replace a colonoscopy but could be used as a screening tool for patients who do not want a colonoscopy. We discussed the importance of early detection of colon cancer. 4. Discussed current guidelines with respect to breast examination, mammogram and pap smear for early detection of breast and cervical cancer. Patient advised to follow up with these appointments. 5. Discussed safe driving and no use of smart phone while driving 6. Age-appropriate immunizations were discussed. A tetanus booster is needed every 10 years. Flu vaccine is recommended every year just before the start of the flu season. Shingles vaccine is recommended after age 50 but not all insurances cover it. Pneumonia vaccine is given after age 65 unless there are certain comorbidities for which it is started earlier. 7. Diagnostic labs were discussed. These could include/not limited to CBC CMP and lipids with fasting blood glucose and insulin levels. Vitamin D and hemoglobin A1c testing might be appropriate. All questions have been answered to patient's satisfaction. Patient verbalized understanding of diagnosis and treatments explained. Advised to call sooner prior to next visit it any questions/concerns arise. Case discussed with collaborating physician Sheng Rivera who reviewed the assessment and plan. Chart, medications, labs, vital signs reviewed. Dictation was accomplished with the use of [employer] voice recognition software, which is prone to medical misidentifications and grammatical errors. This are unintentional and the practitioner does try to identify and correct these, but some could still be present. Please do not hesitate to contact practitioner for clarification. 02/28/2025 Lobular carcinoma of breast, unspecified laterality (ICD-10 - C50.919) Patient seen and examined. Comprehensive discussion was done on the following. # Seasonal allergies: Continue azelastine 137 mcg spray 1 puff in each nostril twice daily. Continue Zyrtec 10 mg once daily as needed for seasonal allergies. # Asthma: Patient has allergy and cough mediated asthma. Continue Airsupra 2 puffs as needed 6 times daily for shortness of breath or wheezing. Continue montelukast 10 mg daily. Patient had pulmonary function testing performed 2021, spirometry is normal, no significant response to bronchodilator. Lung volumes are normal. Carbon monoxide using capacity is near lower limit of normal. # Restless leg syndrome: Recent iron studies are unremarkable. Normal ferritin, serum iron concentration, and TIBC. Patient underwent EMG of the lower extremities on 03/25/2023, otherwise within normal limits, no findings to suggest symptomology. Has been taking magnesium supplements. Reports poor tolerance to iron supplements in the past. # Bilateral breast lobular carcinoma in situ: Patient is status post reduction mammoplasty. Has also completed a 5-year course of tamoxifen. Had been following primarily with [facility] breast services. Alternates between annual breast MRI and mammogram every 6 months. MRI in March 2025. # Hyperlipidemia: Lipid panel in 2022 significant for total cholesterol 227 and LDL 140. Updated lipid panel on 02/27/2025 is significant for total cholesterol 235, triglycerides 80, LDL 139, HDL 81. Discussed importance of diet and lifestyle to improve cholesterol and prevent other comorbidities. Will continue to monitor. # ADHD: Patient follows with [facility] mental health. Continue Adderall 20 mg once daily in the morning and Adderall 5 mg in the evening. Continue follow-up with specialist. # Laryngopharyngeal reflux: Patient reports that she had suspected GERD for a period of time however has been following with an ENT specialist who suspects LPR. She has been prescribed a calcium alginate to be used after meals by specialist. Reports infrequent use of the medication. Continue follow-up with specialist. 1. Nutrition: It is important to follow a healthy diet based on lots of vegetables and legumes and good fat. Avoid processed food and processed carbohydrates. Prepare your own meals. Read labels and avoid high fructose corn syrup, processed chemicals added to increase shelf life and preprepared meals. Avoid fast foods. Eat slowly and plan meals for a week. Try to count calories and be mindful off daily calorie intake. Get into the habit of keeping an eye on your weight by using an appropriate scale. Learn to log exercise and discussed fitness Apps like [employer] or [employer] which can help keep log off calories taken versus calories burned. Local food should be preferred. Discussed Dirty Dozen Versus Clean Fifteen. Discussed healthy supplements like fish oil, Tumeric, Curcumin, Melatonin, Resveratrol, Probiotics, Vitamin-D, Alpha-Lipoic acid, Vitamin-D and coconut oil. 2. It is important to exercise regularly. Is a good habit to walk at least 30 minutes a day. Gentle weightlifting with standard precautions to protect the back. Finding activity like cycling or hiking and get into the habit of engaging in it. Stretching before and after the exercises important. It is also important to contact me if there are any problems like shortness of breath, chest pain, back pain and joint or muscle pain associated with the exercise. 3. Discussed age appropriate screening guidelines. Colonoscopy needs to start at age 50 with stool for occult blood as appropriate. There is a new test that can test for genetic abnormalities in the stool sample, Cologuard. This would not replace a colonoscopy but could be used as a screening tool for patients who do not want a colonoscopy. We discussed the importance of early detection of colon cancer. 4. Discussed current guidelines with respect to breast examination, mammogram and pap smear for early detection of breast and cervical cancer. Patient advised to follow up with these appointments. 5. Discussed safe driving and no use of smart phone while driving 6. Age-appropriate immunizations were discussed. A tetanus booster is needed every 10 years. Flu vaccine is recommended every year just before the start of the flu season. Shingles vaccine is recommended after age 50 but not all insurances cover it. Pneumonia vaccine is given after age 65 unless there are certain comorbidities for which it is started earlier. 7. Diagnostic labs were discussed. These could include/not limited to CBC CMP and lipids with fasting blood glucose and insulin levels. Vitamin D and hemoglobin A1c testing might be appropriate. All questions have been answered to patient's satisfaction. Patient verbalized understanding of diagnosis and treatments explained. Advised to call sooner prior to next visit it any questions/concerns arise. Case discussed with collaborating physician Sheng Rivera who reviewed the assessment and plan. Chart, medications, labs, vital signs reviewed. Dictation was accomplished with the use of [employer] voice recognition software, which is prone to medical misidentifications and grammatical errors. This are unintentional and the practitioner does try to identify and correct these, but some could still be present. Please do not hesitate to contact practitioner for clarification. 02/28/2025 Laryngopharyngeal reflux (LPR) (ICD-10 - K21.9) Patient seen and examined. Comprehensive discussion was done on the following. # Seasonal allergies: Continue azelastine 137 mcg spray 1 puff in each nostril twice daily. Continue Zyrtec 10 mg once daily as needed for seasonal allergies. # Asthma: Patient has allergy and cough mediated asthma. Continue Airsupra 2 puffs as needed 6 times daily for shortness of breath or wheezing. Continue montelukast 10 mg daily. Patient had pulmonary function testing performed 2021, spirometry is normal, no significant response to bronchodilator. Lung volumes are normal. Carbon monoxide using capacity is near lower limit of normal. # Restless leg syndrome: Recent iron studies are unremarkable. Normal ferritin, serum iron concentration, and TIBC. Patient underwent EMG of the lower extremities on 03/25/2023, otherwise within normal limits, no findings to suggest symptomology. Has been taking magnesium supplements. Reports poor tolerance to iron supplements in the past. # Bilateral breast lobular carcinoma in situ: Patient is status post reduction mammoplasty. Has also completed a 5-year course of tamoxifen. Had been following primarily with [facility] breast services. Alternates between annual breast MRI and mammogram every 6 months. MRI in March 2025. # Hyperlipidemia: Lipid panel in 2022 significant for total cholesterol 227 and LDL 140. Updated lipid panel on 02/27/2025 is significant for total cholesterol 235, triglycerides 80, LDL 139, HDL 81. Discussed importance of diet and lifestyle to improve cholesterol and prevent other comorbidities. Will continue to monitor. # ADHD: Patient follows with [facility] mental health. Continue Adderall 20 mg once daily in the morning and Adderall 5 mg in the evening. Continue follow-up with specialist. # Laryngopharyngeal reflux: Patient reports that she had suspected GERD for a period of time however has been following with an ENT specialist who suspects LPR. She has been prescribed a calcium alginate to be used after meals by specialist. Reports infrequent use of the medication. Continue follow-up with specialist. 1. Nutrition: It is important to follow a healthy diet based on lots of vegetables and legumes and good fat. Avoid processed food and processed carbohydrates. Prepare your own meals. Read labels and avoid high fructose corn syrup, processed chemicals added to increase shelf life and preprepared meals. Avoid fast foods. Eat slowly and plan meals for a week. Try to count calories and be mindful off daily calorie intake. Get into the habit of keeping an eye on your weight by using an appropriate scale. Learn to log exercise and discussed fitness Apps like [employer]'s [employer] or [employer] which can help keep log off calories taken versus calories burned. Local food should be preferred. Discussed Dirty Dozen Versus Clean Fifteen. Discussed healthy supplements like fish oil, Tumeric, Curcumin, Melatonin, Resveratrol, Probiotics, Vitamin-D, Alpha-Lipoic acid, Vitamin-D and coconut oil. 2. It is important to exercise regularly. Is a good habit to walk at least 30 minutes a day. Gentle weightlifting with standard precautions to protect the back. Finding activity like cycling or hiking and get into the habit of engaging in it. Stretching before and after the exercises important. It is also important to contact me if there are any problems like shortness of breath, chest pain, back pain and joint or muscle pain associated with the exercise. 3. Discussed age appropriate screening guidelines. Colonoscopy needs to start at age 50 with stool for occult blood as appropriate. There is a new test that can test for genetic abnormalities in the stool sample, Cologuard. This would not replace a colonoscopy but could be used as a screening tool for patients who do not want a colonoscopy. We discussed the importance of early detection of colon cancer. 4. Discussed current guidelines with respect to breast examination, mammogram and pap smear for early detection of breast and cervical cancer. Patient advised to follow up with these appointments. 5. Discussed safe driving and no use of smart phone while driving 6. Age-appropriate immunizations were discussed. A tetanus booster is needed every 10 years. Flu vaccine is recommended every year just before the start of the flu season. Shingles vaccine is recommended after age 50 but not all insurances cover it. Pneumonia vaccine is given after age 65 unless there are certain comorbidities for which it is started earlier. 7. Diagnostic labs were discussed. These could include/not limited to CBC CMP and lipids with fasting blood glucose and insulin levels. Vitamin D and hemoglobin A1c testing might be appropriate. All questions have been answered to patient's satisfaction. Patient verbalized understanding of diagnosis and treatments explained. Advised to call sooner prior to next visit it any questions/concerns arise. Case discussed with collaborating physician Sheng Rivera who reviewed the assessment and plan. Chart, medications, labs, vital signs reviewed. Dictation was accomplished with the use of [employer] voice recognition software, which is prone to medical misidentifications and grammatical errors. This are unintentional and the practitioner does try to identify and correct these, but some could still be present. Please do not hesitate to contact practitioner for clarification. 02/28/2025 ADHD (attention deficit hyperactivity disorder), combined type (ICD-10 - F90.2) Patient seen and examined. Comprehensive discussion was done on the following. # Seasonal allergies: Continue azelastine 137 mcg spray 1 puff in each nostril twice daily. Continue Zyrtec 10 mg once daily as needed for seasonal allergies. # Asthma: Patient has allergy and cough mediated asthma. Continue Airsupra 2 puffs as needed 6 times daily for shortness of breath or wheezing. Continue montelukast 10 mg daily. Patient had pulmonary function testing performed 2021, spirometry is normal, no significant response to bronchodilator. Lung volumes are normal. Carbon monoxide using capacity is near lower limit of normal. # Restless leg syndrome: Recent iron studies are unremarkable. Normal ferritin, serum iron concentration, and TIBC. Patient underwent EMG of the lower extremities on 03/25/2023, otherwise within normal limits, no findings to suggest symptomology. Has been taking magnesium supplements. Reports poor tolerance to iron supplements in the past. # Bilateral breast lobular carcinoma in situ: Patient is status post reduction mammoplasty. Has also completed a 5-year course of tamoxifen. Had been following primarily with [facility] breast services. Alternates between annual breast MRI and mammogram every 6 months. MRI in March 2025. # Hyperlipidemia: Lipid panel in 2022 significant for total cholesterol 227 and LDL 140. Updated lipid panel on 02/27/2025 is significant for total cholesterol 235, triglycerides 80, LDL 139, HDL 81. Discussed importance of diet and lifestyle to improve cholesterol and prevent other comorbidities. Will continue to monitor. # ADHD: Patient follows with [facility]. Continue Adderall 20 mg once daily in the morning and Adderall 5 mg in the evening. Continue follow-up with specialist. # Laryngopharyngeal reflux: Patient reports that she had suspected GERD for a period of time however has been following with an ENT specialist who suspects LPR. She has been prescribed a calcium alginate to be used after meals by specialist. Reports infrequent use of the medication. Continue follow-up with specialist. 1. Nutrition: It is important to follow a healthy diet based on lots of vegetables and legumes and good fat. Avoid processed food and processed carbohydrates. Prepare your own meals. Read labels and avoid high fructose corn syrup, processed chemicals added to increase shelf life and preprepared meals. Avoid fast foods. Eat slowly and plan meals for a week. Try to count calories and be mindful off daily calorie intake. Get into the habit of keeping an eye on your weight by using an appropriate scale. Learn to log exercise and discussed fitness Apps like [employer] or [employer] which can help keep log off calories taken versus calories burned. Local food should be preferred. Discussed Dirty Dozen Versus Clean Fifteen. Discussed healthy supplements like fish oil, Tumeric, Curcumin, Melatonin, Resveratrol, Probiotics, Vitamin-D, Alpha-Lipoic acid, Vitamin-D and coconut oil. 2. It is important to exercise regularly. Is a good habit to walk at least 30 minutes a day. Gentle weightlifting with standard precautions to protect the back. Finding activity like cycling or hiking and get into the habit of engaging in it. Stretching before and after the exercises important. It is also important to contact me if there are any problems like shortness of breath, chest pain, back pain and joint or muscle pain associated with the exercise. 3. Discussed age appropriate screening guidelines. Colonoscopy needs to start at age 50 with stool for occult blood as appropriate. There is a new test that can test for genetic abnormalities in the stool sample, Cologuard. This would not replace a colonoscopy but could be used as a screening tool for patients who do not want a colonoscopy. We discussed the importance of early detection of colon cancer. 4. Discussed current guidelines with respect to breast examination, mammogram and pap smear for early detection of breast and cervical cancer. Patient advised to follow up with these appointments. 5. Discussed safe driving and no use of smart phone while driving 6. Age-appropriate immunizations were discussed. A tetanus booster is needed every 10 years. Flu vaccine is recommended every year just before the start of the flu season. Shingles vaccine is recommended after age 50 but not all insurances cover it. Pneumonia vaccine is given after age 65 unless there are certain comorbidities for which it is started earlier. 7. Diagnostic labs were discussed. These could include/not limited to CBC CMP and lipids with fasting blood glucose and insulin levels. Vitamin D and hemoglobin A1c testing might be appropriate. All questions have been answered to patient's satisfaction. Patient verbalized understanding of diagnosis and treatments explained. Advised to call sooner prior to next visit it any questions/concerns arise. Case discussed with collaborating physician Sheng Rivera who reviewed the assessment and plan. Chart, medications, labs, vital signs reviewed. Dictation was accomplished with the use of [employer] voice recognition software, which is prone to medical misidentifications and grammatical errors. This are unintentional and the practitioner does try to identify and correct these, but some could still be present. Please do not hesitate to contact practitioner for clarification. 02/28/2025 Depression screening (ICD-10 - Z13.31) Patient seen and examined. Comprehensive discussion was done on the following. # Seasonal allergies: Continue azelastine 137 mcg spray 1 puff in each nostril twice daily. Continue Zyrtec 10 mg once daily as needed for seasonal allergies. # Asthma: Patient has allergy and cough mediated asthma. Continue Airsupra 2 puffs as needed 6 times daily for shortness of breath or wheezing. Continue montelukast 10 mg daily. Patient had pulmonary function testing performed 2021, spirometry is normal, no significant response to bronchodilator. Lung volumes are normal. Carbon monoxide using capacity is near lower limit of normal. # Restless leg syndrome: Recent iron studies are unremarkable. Normal ferritin, serum iron concentration, and TIBC. Patient underwent EMG of the lower extremities on 03/25/2023, otherwise within normal limits, no findings to suggest symptomology. Has been taking magnesium supplements. Reports poor tolerance to iron supplements in the past. # Bilateral breast lobular carcinoma in situ: Patient is status post reduction mammoplasty. Has also completed a 5-year course of tamoxifen. Had been following primarily with [facility] breast services. Alternates between annual breast MRI and mammogram every 6 months. MRI in March 2025. # Hyperlipidemia: Lipid panel in 2022 significant for total cholesterol 227 and LDL 140. Updated lipid panel on 02/27/2025 is significant for total cholesterol 235, triglycerides 80, LDL 139, HDL 81. Discussed importance of diet and lifestyle to improve cholesterol and prevent other comorbidities. Will continue to monitor. # ADHD: Patient follows with [facility] mental health. Continue Adderall 20 mg once daily in the morning and Adderall 5 mg in the evening. Continue follow-up with specialist. # Laryngopharyngeal reflux: Patient reports that she had suspected GERD for a period of time however has been following with an ENT specialist who suspects LPR. She has been prescribed a calcium alginate to be used after meals by specialist. Reports infrequent use of the medication. Continue follow-up with specialist. 1. Nutrition: It is important to follow a healthy diet based on lots of vegetables and legumes and good fat. Avoid processed food and processed carbohydrates. Prepare your own meals. Read labels and avoid high fructose corn syrup, processed chemicals added to increase shelf life and preprepared meals. Avoid fast foods. Eat slowly and plan meals for a week. Try to count calories and be mindful off daily calorie intake. Get into the habit of keeping an eye on your weight by using an appropriate scale. Learn to log exercise and discussed fitness Apps like [employer] - It's what's in storepal or [employer] which can help keep log off calories taken versus calories burned. Local food should be preferred. Discussed Dirty Dozen Versus Clean Fifteen. Discussed healthy supplements like fish oil, Tumeric, Curcumin, Melatonin, Resveratrol, Probiotics, Vitamin-D, Alpha-Lipoic acid, Vitamin-D and coconut oil. 2. It is important to exercise regularly. Is a good habit to walk at least 30 minutes a day. Gentle weightlifting with standard precautions to protect the back. Finding activity like cycling or hiking and get into the habit of engaging in it. Stretching before and after the exercises important. It is also important to contact me if there are any problems like shortness of breath, chest pain, back pain and joint or muscle pain associated with the exercise. 3. Discussed age appropriate screening guidelines. Colonoscopy needs to start at age 50 with stool for occult blood as appropriate. There is a new test that can test for genetic abnormalities in the stool sample, Cologuard. This would not replace a colonoscopy but could be used as a screening tool for patients who do not want a colonoscopy. We discussed the importance of early detection of colon cancer. 4. Discussed current guidelines with respect to breast examination, mammogram and pap smear for early detection of breast and cervical cancer. Patient advised to follow up with these appointments. 5. Discussed safe driving and no use of smart phone while driving 6. Age-appropriate immunizations were discussed. A tetanus booster is needed every 10 years. Flu vaccine is recommended every year just before the start of the flu season. Shingles vaccine is recommended after age 50 but not all insurances cover it. Pneumonia vaccine is given after age 65 unless there are certain comorbidities for which it is started earlier. 7. Diagnostic labs were discussed. These could include/not limited to CBC CMP and lipids with fasting blood glucose and insulin levels. Vitamin D and hemoglobin A1c testing might be appropriate. All questions have been answered to patient's satisfaction. Patient verbalized understanding of diagnosis and treatments explained. Advised to call sooner prior to next visit it any questions/concerns arise. Case discussed with collaborating physician Sheng Rivera who reviewed the assessment and plan. Chart, medications, labs, vital signs reviewed. Dictation was accomplished with the use of [employer] voice recognition software, which is prone to medical misidentifications and grammatical errors. This are unintentional and the practitioner does try to identify and correct these, but some could still be present. Please do not hesitate to contact practitioner for clarification. 02/28/2025 Screening for substance abuse (ICD-10 - Z13.89) Patient seen and examined. Comprehensive discussion was done on the following. # Seasonal allergies: Continue azelastine 137 mcg spray 1 puff in each nostril twice daily. Continue Zyrtec 10 mg once daily as needed for seasonal allergies. # Asthma: Patient has allergy and cough mediated asthma. Continue Airsupra 2 puffs as needed 6 times daily for shortness of breath or wheezing. Continue montelukast 10 mg daily. Patient had pulmonary function testing performed 2021, spirometry is normal, no significant response to bronchodilator. Lung volumes are normal. Carbon monoxide using capacity is near lower limit of normal. # Restless leg syndrome: Recent iron studies are unremarkable. Normal ferritin, serum iron concentration, and TIBC. Patient underwent EMG of the lower extremities on 03/25/2023, otherwise within normal limits, no findings to suggest symptomology. Has been taking magnesium supplements. Reports poor tolerance to iron supplements in the past. # Bilateral breast lobular carcinoma in situ: Patient is status post reduction mammoplasty. Has also completed a 5-year course of tamoxifen. Had been following primarily with [facility] breast services. Alternates between annual breast MRI and mammogram every 6 months. MRI in March 2025. # Hyperlipidemia: Lipid panel in 2022 significant for total cholesterol 227 and LDL 140. Updated lipid panel on 02/27/2025 is significant for total cholesterol 235, triglycerides 80, LDL 139, HDL 81. Discussed importance of diet and lifestyle to improve cholesterol and prevent other comorbidities. Will continue to monitor. # ADHD: Patient follows with [facility] mental health. Continue Adderall 20 mg once daily in the morning and Adderall 5 mg in the evening. Continue follow-up with specialist. # Laryngopharyngeal reflux: Patient reports that she had suspected GERD for a period of time however has been following with an ENT specialist who suspects LPR. She has been prescribed a calcium alginate to be used after meals by specialist. Reports infrequent use of the medication. Continue follow-up with specialist. 1. Nutrition: It is important to follow a healthy diet based on lots of vegetables and legumes and good fat. Avoid processed food and processed carbohydrates. Prepare your own meals. Read labels and avoid high fructose corn syrup, processed chemicals added to increase shelf life and preprepared meals. Avoid fast foods. Eat slowly and plan meals for a week. Try to count calories and be mindful off daily calorie intake. Get into the habit of keeping an eye on your weight by using an appropriate scale. Learn to log exercise and discussed fitness Apps like [employer] - It's what's in storepal or [employer] which can help keep log off calories taken versus calories burned. Local food should be preferred. Discussed Dirty Dozen Versus Clean Fifteen. Discussed healthy supplements like fish oil, Tumeric, Curcumin, Melatonin, Resveratrol, Probiotics, Vitamin-D, Alpha-Lipoic acid, Vitamin-D and coconut oil. 2. It is important to exercise regularly. Is a good habit to walk at least 30 minutes a day. Gentle weightlifting with standard precautions to protect the back. Finding activity like cycling or hiking and get into the habit of engaging in it. Stretching before and after the exercises important. It is also important to contact me if there are any problems like shortness of breath, chest pain, back pain and joint or muscle pain associated with the exercise. 3. Discussed age appropriate screening guidelines. Colonoscopy needs to start at age 50 with stool for occult blood as appropriate. There is a new test that can test for genetic abnormalities in the stool sample, Cologuard. This would not replace a colonoscopy but could be used as a screening tool for patients who do not want a colonoscopy. We discussed the importance of early detection of colon cancer. 4. Discussed current guidelines with respect to breast examination, mammogram and pap smear for early detection of breast and cervical cancer. Patient advised to follow up with these appointments. 5. Discussed safe driving and no use of smart phone while driving 6. Age-appropriate immunizations were discussed. A tetanus booster is needed every 10 years. Flu vaccine is recommended every year just before the start of the flu season. Shingles vaccine is recommended after age 50 but not all insurances cover it. Pneumonia vaccine is given after age 65 unless there are certain comorbidities for which it is started earlier. 7. Diagnostic labs were discussed. These could include/not limited to CBC CMP and lipids with fasting blood glucose and insulin levels. Vitamin D and hemoglobin A1c testing might be appropriate. All questions have been answered to patient's satisfaction. Patient verbalized understanding of diagnosis and treatments explained. Advised to call sooner prior to next visit it any questions/concerns arise. Case discussed with collaborating physician Sheng Rivera who reviewed the assessment and plan. Chart, medications, labs, vital signs reviewed. Dictation was accomplished with the use of [employer] voice recognition software, which is prone to medical misidentifications and grammatical errors. This are unintentional and the practitioner does try to identify and correct these, but some could still be present. Please do not hesitate to contact practitioner for clarification. Plan Of Treatment Pending Test Test Name Order Date EMG/NCV ARMS 12/08/2022 EMG/NCV ARMS 01/13/2023 Ultrasound : Neck 06/07/2018 25OH VITAMIN D 01/27/2021 CBC (COMPLETE BLOOD COUNT) 01/27/2021 CBC (COMPLETE BLOOD COUNT) WITH DIFF 04/2025 COMPREHENSIVE METABOLIC PANEL 01/27/2021 CRP, HIGH SENSITIVITY 11/21/2021 IRON & TIBC 01/27/2021 LIPID PANEL 02/07/2025 T3, FREE 02/07/2025 T4, FREE 02/07/2025 TSH 02/07/2025 URINALYSIS W/REFLEX CULTURE 02/07/2025 LIPID PANEL, STANDARD 02/28/2025 LIPID PANEL, STANDARD 11/21/2021 LIPID PANEL, STANDARD 11/30/2022 COMPREHENSIVE METABOLIC PANEL 02/07/2025 IRON AND TOTAL IRON BINDING CAPACITY CBC (INCLUDES DIFF/PLT) 11/30/2022 URINALYSIS, COMPLETE 11/21/2021 VITAMIN B12/FOLATE, SERUM PANEL 03/03/20 FERRITIN 11/30/2022 TSH 11/30/2022 VITAMIN D,25-OH,TOTAL,IA 11/21/2021 VITAMIN D, 1,25 DIHYDROXY LC/MS/MS 02/07 COMPLETE URINALYSIS 01/27/2021 Next Appt Details Provider Name:STUART ZIEGLER , 08/10/2025 08:00:00 AM, [address] [facility], [address], [place], [address], Insurance Providers Payer Name Payer Address Payer Phone Subscriber Number Group Number Insured Name Patient Relationship to Insured Coverage Start Date Coverage End Date [facility] [address] [place] [address] [id number] [id number] MOSQUEDA Self - patient is the insured Medical (General) History Medical History History ICD Code asthma anemia hyperlipidemia Breast CA Surgical History Surgery Date(Month/Year) d+c cholecystectomy mammoplasty hip orif bladder exposion diplopia correction
--- OUTSIDE RECORDS SUMMARY | 2025-07-02 17:44 | XMS_ITS | Clinical Summary ---
Author Organization [facility] it Address [address] [place] [address] Care Team Providers Care Shift Leader Name Role Phone Aleja Suarez MD Primary Care Provider [phone] Allergies Active Allergy Reactions Criticality Noted Date [...] by mouth 3 times daily. 5 Active opjzbz-vyvb-rn qejo-ef-vphtvou 81.6-0.12-10.8 mg tablet Take by mouth. Active [...] no calculi Vitamin D deficiency 09/11/2013 Immunizations Immunization Administration Dates Next Due Influenza trivalent, with preservative (Fluzone; Afluria) 6mo and older 09/04/2016 PPD Test 12/11/2015, 6,10/31/2014,2014,09/05/2014 Tdap Tetanus diptheria acell ular pertussis (Boostrix; Adacel) 7yo and older 02/04/2010 Surgical History Surgery Date Site/Laterality Comments BREAST REDUCTION PROCEDURE: SC BREAST REDUCTION OTHER SURGICAL HISTORY PROCEDURE: ---- [...] ars (1 of 2 - PCV) 1994 Zoster Vaccines (1 of 2) 1994 Cervical Cancer Screening: P ap Smear 01/07/1996 DTaP,Tdap,and Td Vaccines (2 - Td or Tdap) 02/05/2020 02/04/2010 Cholesterol Screening (Lipid Panel) 08/10/2024 03/16/2016 Colorectal Cancer Screening: Colonoscopy 08/10/2024 HIV Screening 08/10/2024 Hepatitis C Screening 08/10/2024 Social Influencers of Health Screening 08/10/2024 Depression Screening 10/04/2024 Influenza Vaccine (#1) 2025 09/04/2016 HIB Vaccines Aged Out No longer eligi [...] on patient's age to complete this topic Procedures Procedure Name Priority Date/Time Associated Diagnosis Comments LIPID PANEL Routine 03/16/2016 from Last 3 Months or Most Recently Relevant to Health Maintenance Results * (ABNORMAL) Lipid panel (03/16/2016) LDL/HDL Ratio 4 0 - 4 Triglycerides 162(A) 0 - 150 mg/dL Cholesterol 210(A) 0 - 200 mg/dL HDL 57 >=40 mg/dL LDL Cholesterol 121(A) 0 - 100 mg/dL Blood Venous blood specimen / Unknown Historical Provider LAB BLOOD ORDERABLES Katelyn l Result from Last 3 Months or Most Recently Relevant to Health Maintenance Care Teams Shift Leader Relationship Specialty Start Date End Date Aleja Suarez MD [address] [place] [address] PCP - General Internal Medicine 07/31/15
--- OUTSIDE RECORDS SUMMARY | 2025-07-02 17:44 | XMS_ITS | Encounter Summary ---
Author Organization [facility] Address [address] [place] [id number] Phone Care Team Providers Care Microfilm Operator Name Role Phone Trent Rivera MD Primary Care Provider [phone] Reason for Referral * Physical Therapy (Routine) - Closed Specialty Diagnoses / Procedures Referred By Andrés sellers Referred To Contact Physical Therapy Diagnoses Encounter for rehabilitation Omar Brown PA Phone: tel: fax: [address] [address] Phone: tel: Referral ID Status Reason Start Date Expiration Date Visits Re quested Visits Authorized [id number] Closed 10/24/2019 10/03/2020 20 20 Encounter Details Date Type Department Care Team (Latest Contact Info) Description 10/24/2019 Transcribe Orders [facility] [address] [place] [address] Omar Brown PA [address] [facility] [address] [place] [address] Encounter for rehabilitation (Primary Dx) Social History Tobacco Use Types Packs/Day Years Used Date Smoking Tobacco: Never Assessed Comments Unknown Sex and Gender Information Value Date Recorded Sex Assigned at Female 09/08/2024 8:02 PM EST Legal Sex Female 3:33 PM EDT Gender Identity Female 09/08/2024 8:02 PM EST Sexual Orientation Not on file documented as of this encounter Plan of Treatment Scheduled Referrals Name Type Priority Associated Diagnoses Orde r Schedule Ambulatory referral to [facility] Physical Therapy Outpatient Referral Routine Encounter for rehabilitation Ordered: 10/24/2019 documented as of this encounter Visit Diagnoses Diagnosis Encounter for rehabilitation- Primary documented in this encounter Care Teams Microfilm Operator Relationship Specialty Start Date End Date Trent Rivera MD [address] [place] [address] PCP - General Internal Medicine 10/24/19 documented as of this encounter Additional Source Comments The information contained in this document represents components of the legal health record. It is not the complete legal health record.[facility]
--- OUTSIDE RECORDS SUMMARY | 2025-07-02 17:44 | XMS_ITS | Encounter Summary ---
Author Organization [facility] Address [address] [place], [place] [address] [place] [address] Phone Care Team Providers Care Cigar Head Perforator Name Role Phone Trent Rivera MD Primary Care Provider Encounter Details Date Type Department Care Team (Late st Contact Info) Description 09/24/2020 Ancillary Orders Virtual Department [address] [place] [address] Emily Moody NP [address] [facility] [address] [place] [address] Confusion; Gait disorder Social History Tobacco Use Types Packs/Day Years Used Date Smoking Tobacco: Never Assessed Comments Unknown Sex and Gender Information Value Date Recorded Sex Assigned at Female 09/08/2024 8:02 PM EST Legal Sex Female 3:33 PM EDT Gender Identity Female 09/08/2024 8:02 PM EST Sexual Orientation Not on file documented as of this encounter Plan of Treatment Not on file documented as of this encounter Visit Diagnoses Diagnosis Confusion Unspecified psychosis Gait disorder Abnormality of gait documented in this encounter Care Teams Cigar Head Perforator Relationship Specialty Start Date End Date Trent Rivera MD [address] [facility] [address] [place] [address] PCP - General Internal Medicine 10/24/19 documented as of this encounter Additional Source Comments The information contained in this document represents components of the legal health record. It is not the complete legal health record.[facility]
== END 2025-07-02 16:08 | disposition home or self-care (01) ==
PROVIDERS: PCP Internal Medicine; Visit Provider Surgery
DX: Z91.89 Other specified personal risk factors, not elsewhere classified (principal); D05.02 Lobular carcinoma in situ of left breast; R22.0 Localized swelling, mass and lump, head
CPT/HCPCS: 99213

== ENCOUNTER → 2025-08-04 07:45 | Outpatient (BNV) | payer BC, SELFPAY | PROVIDERS: PCP Internal Medicine; Visit Provider Internal Medicine | DX: Z12.31 Encounter for screening mammogram for malignant neoplasm of breast (principal) | CPT/HCPCS: 77063; 77067 ==

== ENCOUNTER 2025-08-04 07:52 | Outpatient (REF) | payer BC, SELFPAY ==
--- OUTSIDE RECORDS SUMMARY | 2024-03-07 04:45 | XMS_ITS ---
Author Organization [facility] [address] Address [address] [place] [address] Care Team Providers Care Assurance Senior Manager Insurance Name Role Phone KIMBERLI MALIK Primary Care Provider [phone] VALARIE MADSEN Unavailable [phone] Encounters Encounter Location Date Provider Diagnosis [facility] [address] [place] [address] 03/07/2024 VALARIE MADSEN Plan Of Treatment Next Appt Details Provider Name:STUART ZIEGLER , 08/10/2025 08:00:00 AM, [address] [facility], [facility] [address], [place], [address], Progress Notes * GLORIA QUESADAOB:[birth year] (50 yo F)Acc No.[id number]:03/07/2024 CPE Patient: Rubia ELDER EDI Provider: Preet GUADALUPE PA-C :1975 A ge:49 Y S ex:Female Date:03/07/2024 Address:[address] [place], [place] [id number] Pcp:KIMBERLI MALIK Subjective: * Chief Complaints: * * Medical History: Objective: * Vitals: Assessment: Plan: * Treatment: * Images: Billing Information: * Visit Code: * Procedure Codes: Care Plan Details* * Electronic signature of TOO MADSEN PA-C on 08/04/2025 at 07:55 AM EDT Sign off status: Pending * Provider: Preet GUADALUPE PA-C Date: 0 03/07/2024 Generated for Марина east/Bruno/eTransmitting on: 10/04/2024 07:55 AM EDT
--- OUTSIDE RECORDS SUMMARY | 2025-08-04 07:54 | XMS_ITS | Encounter Summary ---
Author Organization [facility] Address [address] [place] [address] Phone Care Team Providers Care Asbestos Microscopist Name Role Phone Trent Rivera MD Primary Care Provider [phone] Reason for Referral * Physical Therapy (Routine) - Closed Specialty Diagnoses / Procedures Referred By Andrés sellers Referred To Contact Physical Therapy Diagnoses Encounter for rehabilitation Omar Brown PA Phone: tel: fax: [address] [address] Phone: tel: Referral ID Status Reason Start Date Expiration Date Visits Re quested Visits Authorized [id number] Closed 10/24/2019 10/03/2020 20 20 Encounter Details Date Type Department Care Team (Latest Contact Info) Description 10/24/2019 Transcribe Orders [facility] [address] [place] [address] Omar Brown PA [address] [facility] [address] [place] [address] Encounter for rehabilitation (Primary Dx) Social History [...] Diagnoses Orde r Schedule Ambulatory referral to [facility] Physical Therapy Outpatient Referral Routine Encounter for rehabilitation Ordered: 10/24/2019 documented as of this encounter Visit Diagnoses Diagnosis Encounter for rehabilitation- Primary documented in this encounter Care Teams Asbestos Microscopist Relationship Specialty Start Date End Date Trent Rivera MD [address] [place] [address] PCP - General Internal Medicine 10/24/19 documented as of this encounter Additional Source Comments The information contained in this document represents components of the legal health record. It is not the complete legal health record.[facility]
--- OUTSIDE RECORDS SUMMARY | 2025-08-04 07:55 | XMS_ITS | Clinical Summary ---
Author Organization [facility] Address [address] [place] [address] Care Team Providers Care Radiophone Operator Name Role Phone Trent Rivera Primary Care Provider [phone] Allergies Active Allergy Reactions Criticality Noted Date [...] Health Maintenance Due Date Last Done Comments Cervical Cancer Screening 1975 Cologuard 1975 Colon Cancer Screening 1975 Colonoscopy 1975 FOBT / Fit Test 1975 HIV Screening 1975 HPV and Pap Smear 1975 Pap Smear 1975 Sigmoidoscopy 1975 Hepatitis B Vaccines (1 of 3 - 19+ 3-dose series) 1994 Mammogram 2015 DTaP,Tdap,and Td Vaccines (2 - Td or Tdap) 02/05/2020 02/04/2010 Alcohol/Substance Use Screening 10/04/2024 Pneumococcal Vaccine: 50+ Ye ars (1 of 1 - PCV) 2025 Zoster Vaccines (1 of 2) 2025 COVID-19 Vaccine (4 - 2024- season) 2025 08/23/2021, 10/15/2020, 09/24/2020 Influenza Vaccine (#1) 2025 , 07/21/2020, 09/04/2016 RSV Vaccine (60+ years old a nd patients) (1 - 1-dose 75+ series) 2050 [place] [id number] [employer] OUT OF STATE PPO Care Teams Radiophone Operator Relationship Specialty Start Date End Date Trent Rivera [address] [place] [address] PCP - General Internal Medicine 08/12/21
--- OUTSIDE RECORDS SUMMARY | 2025-08-04 07:55 | XMS_ITS | Clinical Summary ---
Author Organization [facility] Address [address] [place], [place] [id number] Phone Care Team Providers Care Tire Maintenance Technician Name Role Phone Trent Rivera MD Primary Care Provider [phone] Allergies Active Allergy Reactions Criticality Noted Date [...] - 2024-2 6 season) 2025 10/15/2020, 09/24/2020 RSV VACCINE (1 - 1-dose 75+ series) 2050 SMOKING STATUS SCREENING (On ce After 26 [...] Medical Devices Not on file Insurance PPO [facility] PPO [place] Jaky [facility] OUT OF [facility] PPO [place] [facility] OUT OF [facility] PPO Jaky [facility] OUT OF [facility] OUT OF [facility] PPO OUT OF [facility] PPO OUT OF STATE PPO [facility] STATE PPO Care Teams Tire Maintenance Technician Relationship Specialty Start Date End Date Trent Rivera MD [address] [place] [address] PCP - General Internal Medicine 10/24/19 Additional Source Comments The information contained in this document represents components of the legal health record. It is not the complete legal health record.[facility]
--- OUTSIDE RECORDS SUMMARY | 2025-08-04 07:55 | XMS_ITS | Encounter Summary ---
Author Organization [facility] Address [address] [place], [place] [address] [place] [address] Phone Care Team Providers Care Supervisor Fertilizer Processing Name Role Phone Trent Rivera MD Primary Care Provider Encounter Details Date Type Department Care Team (Late st Contact Info) Description 09/24/2020 Ancillary Orders Virtual Department [address] [place] [address] Emily Moody NP 299 [facility] 119 [place] [address] Confusion; Gait disorder Social History Tobacco Use [...] gait documented in this encounter Care Teams Supervisor Fertilizer Processing Relationship Specialty Start Date End Date Trent Rivera MD 299 [facility] [address] [place] [address] PCP - General Internal Medicine 10/24/19 documented as of this encounter Additional Source Comments The information contained in this document represents components of the legal health record. It is not the complete legal health record.[facility]
--- OUTSIDE RECORDS SUMMARY | 2025-08-04 07:55 | XMS_ITS | Clinical Summary ---
Author Organization [facility] it Address [address] [place] [address] Care Team Providers Care Vp Outcomes Name Role Phone Aleja Suarez MD Primary Care Provider [phone] Allergies Active Allergy Reactions Criticality Noted Date [...] by mouth 3 times daily. 5 Active pyiaqt-pyjt-ub vcwg-xv-owdayax 81.6-0.12-10.8 mg tablet Take by mouth. Active [...] Surgery Date Site/Laterality Comments BREAST REDUCTION PROCEDURE: [place] BREAST REDUCTION OTHER SURGICAL HISTORY PROCEDURE: ---- [...] Last Done Comments Breast Cancer Screening 1975 Colorectal Cancer Screening: Colonoscopy 1975 COVID-19 Vaccine (#1) 01/07/1980 Hepatitis B Vaccines (1 of 3 - 19+ 3-dose series) 1994 Pneumococcal Vaccine: 50+ Ye ars (1 of 2 - PCV) 1994 Zoster Vaccines (1 of 2) 1994 Cervical Cancer Screening: P ap Smear 01/07/1996 DTaP,Tdap,and Td Vaccines (2 - Td or Tdap) 02/05/2020 02/04/2010 Cholesterol Screening (Lipid Panel) 08/10/2024 03/16/2016 HIV Screening 08/10/2024 Hepatitis C Screening 08/10/2024 Social Influencers of Health Screening 08/10/2024 Depression Screening 10/04/2024 RSV Immunization Adult Patie nts (1 - Risk 50-74 years 1-dose series) 2025 Influenza Vaccine (#1) 2025 09/04/2016 HIB Vaccines [...] Recently Relevant to Health Maintenance Care Teams Vp Outcomes Relationship Specialty Start Date End Date Aleja Suarez MD [address] [place] [address] PCP - General Internal Medicine 07/31/15
--- OUTSIDE RECORDS SUMMARY | 2025-08-04 07:55 | XMS_ITS | Patient Health Record ---
Author Organization [facility] [address] Address [address] [place] [address] Care Team Providers Care Floatman Name Role Phone KIMBERLI RIVERA Primary Care Provider VALARIE MADSEN Unavailable [phone] STUART ZIEGLER Unavailable [phone] Allergies Allergen (clinical drug ingredient) Drug/Non Drug [...] Status Risk Notes Problem Iron deficiency anemia (36090592) Iron deficiency anemia, unspecified (D50.9) Active confirmed Problem Vitamin D deficiency (38318298) Vitamin D deficiency, unspecified (E55.9) Active confirmed Problem Obesity (401201945) Other obesity (E66.8) Active confirmed Problem Mixed hyperlipidemia (389864744) Mixed hyperlipidemia (E78.2) Active confirmed Problem Esotropia (96316679) Unspecified esotropia (H50.00) Active confirmed Problem Amblyopia (258416028) Unspecified amblyopia, left eye (H53.002) Active confirmed Problem Allergic rhinitis due to food (196964535) Allergic rhinitis due to food (J30.5) Active confirmed Problem Mild intermittent asthma (440881767) Mild intermittent asthma, uncomplicated (J45.20) Active confirmed Problem Uncomplicated asthma (disorder) (777674075) Unspecified asthma, uncomplicated (J45.909) Active confirmed Problem Gastro-esophageal reflux disease with esophagitis (095781625) Gastro-esophageal reflux disease with esophagitis (K21.0) Active confirmed Problem Paresthesia (finding) (18256727) Paresthesia of skin (R20.2) Active confirmed Problem C-reactive protein abnormal (952325182) Elevated C-reactive protein (CRP) (R79.82) Active confirmed Problem Body mass index 30.00 to 34.99 (741432281204810) Body mass index (BMI) 32.0-32.9, adult (Z68.32) Active confirmed Problem Hyperlipidaemia (72042278) Hyperlipidemia, unspecified hyperlipidemia type (E78.5) Active confirmed Problem Acquired hypothyroidism (401476748) Acquired hypothyroidism (E03.9) Active confirmed Problem Seasonal allergy (427911839) Seasonal allergies (J30.2) Active confirmed Problem Vitamin D deficiency (26940371) Vitamin D deficiency (E55.9) Active confirmed Problem Skin sensation disturbance (02477146) Tingling in extremities (R20.2) Active confirmed Problem Restless legs syndrome (46914493) Restless leg syndrome (G25.81) Active confirmed Problem Attention deficit hyperactivity disorder (724741474) Attention deficit hyperactivity disorder (ADHD), unspecified ADHD type (F90.9) Active confirmed Problem Obese class I (120853638568338) BMI 33.0-33.9,adult (Z68.33) Active confirmed Problem Paresthesia (56465249) Paresthesia (R20.2) Active confirmed Problem Body mass index 30.00 to 34.99 (790901943500454) BMI 34.0-34.9,adult (Z68.34) Active confirmed Problem Microcytic anemia (476220302) Microcytic anemia (D50.9) Active confirmed Problem Attention deficit hyperactivity disorder (723301258) ADHD (attention deficit hyperactivity disorder), combined type (F90.2) Active confirmed Vital Signs Heart Rate 83 /min 02/28/2025 Blood pressure diastolic 82 mm Hg 02/28/2025 Oximetry 98 % 02/28/2025 Height 64 in 02/28/2025 Blood pressure systolic 126 mm Hg 02/28/2025 Weight 178 lbs 02/28/2025 BMI 30.55 kg/m2 02/28/2025 Encounters Encounter Location Date Provider Diagnosis [facility] [address] [place] [address] 02/28/2025 STUART ZIEGLER Annual physical exam Z00.00 ; Mixed hyperlipidemia E78.2 ; Seasonal allergies J30.2 ; Mild intermittent asthma, uncomplicated J45.20 ; Restless leg syndrome G25.81 ; Lobular carcinoma of breast, unspecified laterality C50.919 ; Laryngopharyngeal reflux (LPR) K21.9 ; ADHD (attention deficit hyperactivity disorder), combined type F90.2 ; Depression screening Z13.31 and Screening for substance abuse Z13.89 [facility] [address] [facility] [address] [place] [address] 02/07/2025 STUART ZIEGLER Annual physical exam Z00.00 ; Hyperlipidemia, unspecified hyperlipidemia type E78.5 ; Acquired hypothyroidism E03.9 and Vitamin D deficiency, unspecified E55.9 [facility] [address] [facility] 119 [place] [address] 02/28/2025 STUARTCALI ZIEGLER [facility] [address] [facility] [address] [place] [address] 03/13/2025 STUART ZIEGLER Assessments Encounter Date Diagnosis [...] of tamoxifen. Had been following primarily with [facility] breast services. Alternates between annual breast [...] to monitor. # ADHD: Patient follows with [facility] mental health. Continue Adderall 20 mg [...] log exercise and discussed fitness Apps like [employer] or Cronometer which can help keep log [...] Dictation was accomplished with the use of [employer] voice recognition software, which is prone to [...] of tamoxifen. Had been following primarily with [facility] breast services. Alternates between annual breast [...] to monitor. # ADHD: Patient follows with [facility] mental health. Continue Adderall 20 mg [...] log exercise and discussed fitness Apps like [employer] or [employer]ometer which can help keep log off calories [...] Dictation was accomplished with the use of [employer] voice recognition software, which is prone to [...] of tamoxifen. Had been following primarily with [facility] breast services. Alternates between annual breast [...] to monitor. # ADHD: Patient follows with [facility] mental health. Continue Adderall 20 mg [...] log exercise and discussed fitness Apps like [employer] or [employer] which can help keep log off calories [...] Dictation was accomplished with the use of [employer] voice recognition software, which is prone to [...] of tamoxifen. Had been following primarily with [facility] breast services. Alternates between annual breast [...] to monitor. # ADHD: Patient follows with [facility] for mental health. Continue Adderall 20 mg [...] log exercise and discussed fitness Apps like [employer] or [employer] which can help keep log off calories [...] Dictation was accomplished with the use of [employer] voice recognition software, which is prone to [...] of tamoxifen. Had been following primarily with [facility] breast services. Alternates between annual breast [...] to monitor. # ADHD: Patient follows with [facility] for mental health. Continue Adderall 20 mg [...] log exercise and discussed fitness Apps like [employer] or [employer] which can help keep log off calories [...] Dictation was accomplished with the use of [employer] voice recognition software, which is prone to [...] of tamoxifen. Had been following primarily with [facility] breast services. Alternates between annual breast [...] to monitor. # ADHD: Patient follows with [facility] mental health. Continue Adderall 20 mg [...] log exercise and discussed fitness Apps like [employer] or [employer] which can help keep log off calories [...] Dictation was accomplished with the use of [employer] voice recognition software, which is prone to [...] of tamoxifen. Had been following primarily with [facility] breast services. Alternates between annual breast [...] to monitor. # ADHD: Patient follows with [facility] mental health. Continue Adderall 20 mg [...] log exercise and discussed fitness Apps like [employer] or [employer] which can help keep log off calories [...] Dictation was accomplished with the use of [employer] voice recognition software, which is prone to [...] of tamoxifen. Had been following primarily with [facility] breast services. Alternates between annual breast [...] to monitor. # ADHD: Patient follows with [facility]. Continue Adderall 20 mg once daily in [...] log exercise and discussed fitness Apps like [employer] or [employer] which can help keep log off calories [...] Dictation was accomplished with the use of [employer] voice recognition software, which is prone to [...] of tamoxifen. Had been following primarily with [facility] breast services. Alternates between annual breast [...] to monitor. # ADHD: Patient follows with [facility] mental health. Continue Adderall 20 mg [...] log exercise and discussed fitness Apps like [employer] or [employer] which can help keep log off calories [...] Dictation was accomplished with the use of [employer] voice recognition software, which is prone to [...] of tamoxifen. Had been following primarily with [facility] breast services. Alternates between annual breast [...] to monitor. # ADHD: Patient follows with [facility] mental health. Continue Adderall 20 mg [...] log exercise and discussed fitness Apps like [employer] or [employer] which can help keep log off calories [...] Dictation was accomplished with the use of [employer] voice recognition software, which is prone to medical misidentifications and grammatical errors. This are unintentional and the practitioner does try to identify and correct these, but some could still be present. Please do not hesitate to contact practitioner for clarification. Plan Of Treatment Pending Test Test Name Order Date EMG/NCV ARMS 01/13/2023 EMG/NCV ARMS 12/08/2022 Ultrasound : Neck 06/07/2018 25OH VITAMIN D 01/27/2021 CBC (COMPLETE BLOOD COUNT) 01/27/2021 CBC (COMPLETE BLOOD COUNT) WITH DIFF 04/2025 COMPREHENSIVE METABOLIC PANEL 01/27/2021 CRP, HIGH SENSITIVITY 11/21/2021 IRON & TIBC 01/27/2021 LIPID PANEL 02/07/2025 T3, FREE 02/07/2025 T4, FREE 02/07/2025 TSH 02/07/2025 URINALYSIS W/REFLEX CULTURE 02/07/2025 LIPID PANEL, STANDARD 11/30/2022 LIPID PANEL, STANDARD 02/28/2025 LIPID PANEL, STANDARD 11/21/2021 COMPREHENSIVE METABOLIC PANEL 02/07/2025 IRON AND TOTAL IRON BINDING CAPACITY CBC (INCLUDES DIFF/PLT) 11/30/2022 URINALYSIS, COMPLETE 11/21/2021 VITAMIN B12/FOLATE, SERUM PANEL 03/03/20 FERRITIN 11/30/2022 TSH 11/30/2022 VITAMIN D,25-OH,TOTAL,IA 11/21/2021 VITAMIN D, 1,25 DIHYDROXY LC/MS/MS 02/07 COMPLETE URINALYSIS 01/27/2021 Next Appt Details Provider Name:STUART ZIEGLER , 08/10/2025 08:00:00 AM, 299 [facility], [facility], [place], [address], Insurance Providers Payer Name Payer Address Payer Phone Subscriber Number Group Number Insured Name Patient Relationship to Insured Coverage Start Date Coverage End Date [facility] [address] [place] [address] [id number] EDI MOSQUEDA Self - patient is the insured Medical (General) History Medical History History ICD Code asthma anemia hyperlipidemia Breast CA Surgical History Surgery Date(Month/Year) d+c cholecystectomy mammoplasty hip orif bladder exposion diplopia correction
--- OUTSIDE RECORDS SUMMARY | 2025-08-04 07:55 | XMS_ITS | Clinical Summary ---
Author Organization [facility] Address [address] [place] [address] Care Team Providers Care Supervisor Drying And Softening Name Role Phone Trent Rivera MD Primary Care Provider [phone] Allergies Active Allergy Reactions Criticality Noted Date [...] age to complete this topic Care Teams Supervisor Drying And Softening Relationship Specialty Start Date End Date Trent Rivera MD [address] [place] [address] PCP - General Internal Medicine 08/18/18
== END 2025-08-04 07:53 | disposition home or self-care (01) ==
LOC: HO.MAMMO 07:52
PROVIDERS: PCP Internal Medicine; Visit Provider Surgery
DX: Z12.31 Encounter for screening mammogram for malignant neoplasm of breast (principal)
CPT/HCPCS: 77063; 77067

== ENCOUNTER 2025-08-10 08:35 | Outpatient (REF) | payer BC, SELFPAY ==
--- OUTSIDE RECORDS SUMMARY | 2024-03-07 03:45 | XMS_ITS ---
Author Organization [facility] [address] Address [address] [place] [address] Care Team Providers Care Social Worker Health Services Name Role Phone KIMBERLI MALIK Primary Care Provider [phone] VALARIE MADSEN Unavailable [phone] Encounters Encounter Location Date Provider Diagnosis [facility] [address] [place] [address] 03/07/2024 VALARIE MADSEN Plan Of Treatment Next Appt Details Provider Name:STUART ZIEGLER , 08/13/2025 10:00:00 AM, [address] [facility], [facility] [address], [place], [address], Progress Notes * GLORIA QUESADAOB:[birth year] (50 yo F)Acc No.[id number]:03/07/2024 CPE Patient: Rubia WEBSTERJERROD EDI Provider: Preet GUADALUPE PA-C :1975 A ge:49 Y S ex:Female Date:03/07/2024 Address:[address] [place], [place] [id number] Pcp:KIMBERLI MALIK Subjective: * Chief Complaints: * * Medical History: Objective: * Vitals: Assessment: Plan: * Treatment: * Images: Billing Information: * Visit Code: * Procedure Codes: Care Plan Details* * Electronic signature of TOO MADSEN PA-C on 08/10/2025 at 09:09 AM EST Sign off status: Pending * Provider: Preet GUADALUPE PA-C Date: 0 03/07/2024 Generated for Марина east/Bruno/eTransmitting on: 10/10/2024 09:09 AM EST
--- OUTSIDE RECORDS SUMMARY | 2025-08-10 09:08 | XMS_ITS | Encounter Summary ---
Author Organization [facility] Address [address] [place] [address] Phone Care Team Providers Care Real Estate Development Manager Name Role Phone Trent Rivera MD Primary Care Provider [phone] Reason for Referral * Physical Therapy (Routine) - Closed Specialty Diagnoses / Procedures Referred By Andrés sellers Referred To Contact Physical Therapy Diagnoses Encounter for rehabilitation Omar Brown PA Phone: tel: fax: [address] [address] Phone: tel: Referral ID Status Reason Start Date Expiration Date Visits Re quested Visits Authorized [id number] Closed 10/24/2019 10/03/2020 20 20 Encounter Details Date Type Department Care Team (Latest Contact Info) Description 10/24/2019 Transcribe Orders [facility] [address] [place] [address] Omar Brown PA [address] [facility] [address] [place] [address] Encounter for rehabilitation (Primary Dx) Social History [...] Diagnoses Orde r Schedule Ambulatory referral to [facility] Physical Therapy Outpatient Referral Routine Encounter for rehabilitation Ordered: 10/24/2019 documented as of this encounter Visit Diagnoses Diagnosis Encounter for rehabilitation- Primary documented in this encounter Care Teams Real Estate Development Manager Relationship Specialty Start Date End Date Trent Rivera MD [address] [place] [address] PCP - General Internal Medicine 10/24/19 documented as of this encounter Additional Source Comments The information contained in this document represents components of the legal health record. It is not the complete legal health record.[facility]
--- OUTSIDE RECORDS SUMMARY | 2025-08-10 09:08 | XMS_ITS | Clinical Summary ---
Author Organization [facility] Address [address] [place], [place] [address] Phone Care Team Providers Care Raw Mill Operator Name Role Phone Trent Rivera MD Primary Care Provider [phone] Allergies Active Allergy Reactions Criticality Noted Date [...] Medical Devices Not on file Insurance PPO [facility] PPO [place] [facility] OUT OF [facility] PPO [place] [facility] OUT OF [facility] PPO Jaky [facility] OUT OF [facility] PPO OUT OF [facility] PPO OUT OF [facility] PPO OUT OF STATE PPO [facility] STATE PPO Care Teams Raw Mill Operator Relationship Specialty Start Date End Date Trent Rivera MD [address] [place] [address] PCP - General Internal Medicine 10/24/19 Additional Source Comments The information contained in this document represents components of the legal health record. It is not the complete legal health record.[facility]
--- OUTSIDE RECORDS SUMMARY | 2025-08-10 09:08 | XMS_ITS | Clinical Summary ---
Author Organization [facility] it Address [address] [place] [address] Care Team Providers Care C Web Developer Name Role Phone Aleja Suarez MD Primary Care Provider [phone] Allergies Active Allergy Reactions Criticality Noted Date [...] by mouth 3 times daily. 5 Active dayvjj-mhca-rl ykxx-ec-zpenjnr 81.6-0.12-10.8 mg tablet Take by mouth. Active [...] Surgery Date Site/Laterality Comments BREAST REDUCTION PROCEDURE: [place] BREAST REDUCTION OTHER SURGICAL HISTORY PROCEDURE: ---- [...] Recently Relevant to Health Maintenance Care Teams C Web Developer Relationship Specialty Start Date End Date Aleja Suarez MD [address] [place] [address] PCP - General Internal Medicine 07/31/15
--- OUTSIDE RECORDS SUMMARY | 2025-08-10 09:08 | XMS_ITS | Patient Health Record ---
Author Organization [facility] [address] Address [address] [place] [address] Care Team Providers Care Pinball Machine Repairer Name Role Phone KIMBERLI RIVERA Primary Care Provider VALARIE MADSEN Unavailable [phone] STUART ZIEGLER Unavailable [phone] Allergies Allergen (clinical drug ingredient) Drug/Non Drug [...] Status Risk Notes Problem Iron deficiency anemia (36596388) Iron deficiency anemia, unspecified (D50.9) Active confirmed Problem Vitamin D deficiency (79625378) Vitamin D deficiency, unspecified (E55.9) Active confirmed Problem Obesity (428034575) Other obesity (E66.8) Active confirmed Problem Mixed hyperlipidemia (048222092) Mixed hyperlipidemia (E78.2) Active confirmed Problem Esotropia (39532897) Unspecified esotropia (H50.00) Active confirmed Problem Amblyopia (188093153) Unspecified amblyopia, left eye (H53.002) Active confirmed Problem Allergic rhinitis due to food (257915878) Allergic rhinitis due to food (J30.5) Active confirmed Problem Mild intermittent asthma (576954393) Mild intermittent asthma, uncomplicated (J45.20) Active confirmed Problem Uncomplicated asthma (disorder) (798724123) Unspecified asthma, uncomplicated (J45.909) Active confirmed Problem Gastro-esophageal reflux disease with esophagitis (772521373) Gastro-esophageal reflux disease with esophagitis (K21.0) Active confirmed Problem Paresthesia (finding) (02888956) Paresthesia of skin (R20.2) Active confirmed Problem C-reactive protein abnormal (955023708) Elevated C-reactive protein (CRP) (R79.82) Active confirmed Problem Body mass index 30.00 to 34.99 (866016323823828) Body mass index (BMI) 32.0-32.9, adult (Z68.32) Active confirmed Problem Hyperlipidaemia (54810932) Hyperlipidemia, unspecified hyperlipidemia type (E78.5) Active confirmed Problem Acquired hypothyroidism (086932578) Acquired hypothyroidism (E03.9) Active confirmed Problem Seasonal allergy (588666262) Seasonal allergies (J30.2) Active confirmed Problem Vitamin D deficiency (94380003) Vitamin D deficiency (E55.9) Active confirmed Problem Skin sensation disturbance (15290681) Tingling in extremities (R20.2) Active confirmed Problem Restless legs syndrome (11605736) Restless leg syndrome (G25.81) Active confirmed Problem Attention deficit hyperactivity disorder (725059423) Attention deficit hyperactivity disorder (ADHD), unspecified ADHD type (F90.9) Active confirmed Problem Obese class I (607355921524049) BMI 33.0-33.9,adult (Z68.33) Active confirmed Problem Paresthesia (40039214) Paresthesia (R20.2) Active confirmed Problem Body mass index 30.00 to 34.99 (553380661221444) BMI 34.0-34.9,adult (Z68.34) Active confirmed Problem Microcytic anemia (775972356) Microcytic anemia (D50.9) Active confirmed Problem Attention deficit hyperactivity disorder (284471509) ADHD (attention deficit hyperactivity disorder), combined type (F90.2) Active confirmed Vital Signs Heart Rate 83 /min 02/28/2025 Oximetry 98 % 02/28/2025 Blood pressure diastolic 82 mm Hg 02/28/2025 Height 64 in 02/28/2025 Blood pressure systolic 126 mm Hg 02/28/2025 Weight 178 lbs 02/28/2025 BMI 30.55 kg/m2 02/28/2025 Encounters Encounter Location Date Provider Diagnosis [facility] [address] [place] [id number] 02/28/2025 STUART ZIEGLER Annual physical exam Z00.00 [...] Z13.89 [facility] [address] [facility] [address] [place] [address] 02/07/2025 STUART ZIEGLER Annual physical exam Z00.00 ; Hyperlipidemia, unspecified hyperlipidemia type E78.5 ; Acquired hypothyroidism E03.9 and Vitamin D deficiency, unspecified E55.9 [facility] [address] [facility] [address] [place] [address] 02/28/2025 STUARTCALI ZIEGLER [facility] [address] [facility] [address] [place] [address] 03/13/2025 STUART ZIEGLER Assessments Encounter Date Diagnosis [...] of tamoxifen. Had been following primarily with [facility] breast services. Alternates between annual breast MRI [...] to monitor. # ADHD: Patient follows with [facility] mental health. Continue Adderall 20 mg [...] log exercise and discussed fitness Apps like Pongo Resumepal or Cronometer which can help keep log [...] Dictation was accomplished with the use of Revetto voice recognition software, which is prone to [...] of tamoxifen. Had been following primarily with [facility] breast services. Alternates between annual breast MRI [...] to monitor. # ADHD: Patient follows with [facility] mental health. Continue Adderall 20 mg [...] log exercise and discussed fitness Apps like [employer] or Tempus Globalometer which can help keep log off calories [...] Dictation was accomplished with the use of Revetto voice recognition software, which is prone to [...] of tamoxifen. Had been following primarily with [facility] breast services. Alternates between annual breast MRI [...] to monitor. # ADHD: Patient follows with [facility] mental health. Continue Adderall 20 mg [...] log exercise and discussed fitness Apps like Pongo Resumepal or Tempus Globalometer which can help keep log off calories [...] Dictation was accomplished with the use of Revetto voice recognition software, which is prone to [...] of tamoxifen. Had been following primarily with [facility] breast services. Alternates between annual breast MRI [...] to monitor. # ADHD: Patient follows with [facility] for mental health. Continue Adderall 20 [...] log exercise and discussed fitness Apps like [employer] or Tempus Globalometer which can help keep log off calories [...] Dictation was accomplished with the use of Revetto voice recognition software, which is prone to [...] of tamoxifen. Had been following primarily with [facility] breast services. Alternates between annual breast MRI [...] to monitor. # ADHD: Patient follows with [facility] for mental health. Continue Adderall 20 [...] log exercise and discussed fitness Apps like [employer] or Tempus Globalometer which can help keep log off calories [...] Dictation was accomplished with the use of Revetto voice recognition software, which is prone to [...] of tamoxifen. Had been following primarily with [facility] breast services. Alternates between annual breast MRI [...] to monitor. # ADHD: Patient follows with [facility] mental health. Continue Adderall 20 mg [...] log exercise and discussed fitness Apps like [employer] or Tempus Globalometer which can help keep log off calories [...] Dictation was accomplished with the use of Revetto voice recognition software, which is prone to [...] of tamoxifen. Had been following primarily with [facility] breast services. Alternates between annual breast MRI [...] to monitor. # ADHD: Patient follows with [facility] mental health. Continue Adderall 20 mg [...] log exercise and discussed fitness Apps like Pongo Resumepal or Tempus Globalometer which can help keep log off calories [...] Dictation was accomplished with the use of Revetto voice recognition software, which is prone to [...] of tamoxifen. Had been following primarily with [facility] breast services. Alternates between annual breast MRI [...] to monitor. # ADHD: Patient follows with [facility]. Continue Adderall 20 mg once daily in [...] log exercise and discussed fitness Apps like [employer] or Tempus Globalometer which can help keep log off calories [...] Dictation was accomplished with the use of Revetto voice recognition software, which is prone to [...] of tamoxifen. Had been following primarily with [facility] breast services. Alternates between annual breast MRI [...] to monitor. # ADHD: Patient follows with [facility] mental health. Continue Adderall 20 mg [...] log exercise and discussed fitness Apps like Pongo Resumepal or Tempus Globalometer which can help keep log off calories [...] Dictation was accomplished with the use of Revetto voice recognition software, which is prone to [...] of tamoxifen. Had been following primarily with [facility] breast services. Alternates between annual breast MRI [...] to monitor. # ADHD: Patient follows with [facility] mental health. Continue Adderall 20 mg [...] log exercise and discussed fitness Apps like Pongo Resumepal or Tempus Globalometer which can help keep log off calories [...] Dictation was accomplished with the use of Revetto voice recognition software, which is prone to [...] Name:STUART ZIEGLER , 08/13/2025 10:00:00 AM, [address] [facility], [facility], [place], [address], Insurance Providers Payer Name Payer Address Payer Phone Subscriber Number Group Number Insured Name Patient Relationship to Insured Coverage Start Date Coverage End Date [facility] [address] [place] [address] [phone] [id number] MOSQUEDA Self - patient is the insured Medical (General) History Medical History History ICD Code asthma anemia hyperlipidemia Breast CA Surgical History Surgery Date(Month/Year) d+c cholecystectomy mammoplasty hip orif bladder exposion diplopia correction
--- OUTSIDE RECORDS SUMMARY | 2025-08-10 09:08 | XMS_ITS | Clinical Summary ---
Author Organization [facility] Address [address] [place] [address] Care Team Providers Care Socket Puller Name Role Phone Trent Rivera Primary Care Provider Allergies Active Allergy Reactions Criticality Noted Date [...] (1 - 1-dose 75+ series) 2050 [place] [id number] BCBS OUT OF STATE PPO Care Teams Socket Puller Relationship Specialty Start Date End Date Trent Rivera [address] [place] [phone] PCP - General Internal Medicine 08/12/21
--- OUTSIDE RECORDS SUMMARY | 2025-08-10 09:08 | XMS_ITS | Clinical Summary ---
Author Organization [facility] Address [address] [place] [address] Care Team Providers Care Vacuum Truck Driver Name Role Phone Trent Rivera MD Primary Care Provider [phone] Allergies Active Allergy Reactions Criticality Noted Date [...] age to complete this topic Care Teams Vacuum Truck Driver Relationship Specialty Start Date End Date Trent Rivera MD [address] [place] [address] PCP - General Internal Medicine 08/18/18
--- OUTSIDE RECORDS SUMMARY | 2025-08-10 09:08 | XMS_ITS | Encounter Summary ---
Author Organization [facility] Address [address] [place], [place] [address] [place] [address] Phone Care Team Providers Care Floor Covering Layer Name Role Phone Trent Rivera MD Primary Care Provider [phone] Encounter Details Date Type Department Care Team (Late st Contact Info) Description 09/24/2020 Ancillary Orders Virtual Department [address] [place] [address] Emily Moody NP 299 [facility] [address] [place] [address] Confusion; Gait disorder Social History Tobacco Use [...] gait documented in this encounter Care Teams Floor Covering Layer Relationship Specialty Start Date End Date Trent Rivera MD 299 [facility] [address] [place] [address] PCP - General Internal Medicine 10/24/19 documented as of this encounter Additional Source Comments The information contained in this document represents components of the legal health record. It is not the complete legal health record.[facility]
[2025-08-10 13:42] LABS: Cholesterol 218 mg/dL (<200); HDL Cholesterol 71 mg/dL (>40); Triglycerides 59 mg/dL (<150)
== END 2025-08-10 08:36 | disposition home or self-care (01) ==
LOC: HO.HKASLDS 08:35
DX: E78.5 Hyperlipidemia, unspecified (principal)
CPT/HCPCS: 36415; 80061

== ENCOUNTER → 2025-08-21 16:24 | Outpatient (BNV) | payer BC, SELFPAY | PROVIDERS: Visit Provider Internal Medicine | DX: E61.1 Iron deficiency (principal); G25.81 Restless legs syndrome; G47.01 Insomnia due to medical condition | CPT/HCPCS: 99204 ==

== ENCOUNTER 2025-09-11 11:08 | Outpatient (AMB) | payer BC, SELFPAY ==
[2025-09-11 11:14] VITALS: BMI 31.5
--- NOTE | 2025-09-11 11:14 | A.PHYSOV ---
Vital Signs 09/11/25 11:14 Height 5 ft 3.75 in Weight 182 lb BMI 31.5 Intake Visit Reasons: NPV [facility]PC Ref- left elbow Intake Note: Patient is a 50 year old female here for a left elbow pain. Technical Support Analyst Required: No Allergies Penicillins (PENICILLINS) Allergy (Unknown, Verified 07/02/25 16:00) UNKNOWN pork gelitin Allergy (Uncoded 07/02/25 16:00) Nausea HPI Comments Details: History of Present Illness The patient is a 50 year old female presenting with discomfort in her left arm. She reports the issue has been bothering her for a couple of months without a specific onset, but it has become more problematic recently. The patient is active in small group fitness classes four days a week, including TRX, low-intensity functional training, and core workouts. She was prompted to make the appointment after experiencing sharp, nociceptive pain while attempting a cross-body row, which she was unable to perform even after reducing the weight from 20 pounds down to 8 pounds. She notes the pain is specifically aggravated by crossing movements, twisting, and pushing down on the trunk, whereas activities like push-ups and kettlebell swings do not bother her. She reports some separate discomfort in her shoulder, which she feels is distinct from this main issue. She takes Aleve every night to self-treat restless legs. She is right-handed and acknowledges her left side is weaker. I reviewed the referring provider's no prior to consultation. Pain Description - Onset: The discomfort began insidiously a couple of months ago. - Location: The pain is located in the left forearm area. - Character: The pain is described as a nociceptive signal to stop the offending activity. - Aggravating factors: The pain is exacerbated by cross-body rows, overhead pressing, and twisting motions. - Associated factors: Activities such as push-ups, kettlebell swings, and standard rows do not cause this specific pain. 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 FH: cholecystectomy Surgical History History of dilation and curettage (~2016) Hx of surgical procedure (~2011) History of eye surgery Hx of cholecystectomy (~2015) Hx of surgical procedure (~1986) Hx of surgical procedure (~1984) Hx of surgical procedure Hx of colonoscopy History of esophagogastroduodenoscopy (EGD) H/O reduction mammoplasty (~2013) Family History Other Family history unknown Social History Household Members: Spouse, Family and Children Housing: House Alcohol intake: current Alcohol intake frequency: a few times a month Patient Tobacco Use Status: Never used Tobacco service: No Current occupational status: employed Current occupation: [employer] Neu[facility] and Sleep Review of Systems Narrative Review of Systems - Musculoskeletal: Reports discomfort in the left arm for a couple of months, aggravated by certain exercises. Reports non-painful popping in her neck with halo movements. Reports occasional feeling of impingement in the shoulder. Denies pain with neck flexion or extension. - Neurological: Reports restless legs. Denies numbness or radicular arm pain with neck movement. Physical Exam Exam Exam: Physical Exam - Neck: Full range of motion noted. Non-painful crepitus with circumduction. Spurling's test is negative. Tenderness to palpation over the upper cervical region. - Left Shoulder: No tenderness to palpation at the AC joint or biceps tendon. Strength is 5/5 with forward flexion, abduction against resistance (Mariel's test), and internal and external rotation. Passive range of motion elicits mild lateral discomfort. - Left Elbow/Forearm: Strength is 5/5 with elbow flexion and extension. No pain reproduced with resisted wrist extension. Tenderness to palpation over the lateral epicondyle and extensor muscle belly. Vital Signs: BMI result Body Mass Index 31.5 Assessment & Plan Assessment & Plan (1) Tennis elbow: Code(s): M77.10 - Lateral epicondylitis, unspecified elbow Category: Medical Qualifiers: Laterality: left Qualified Code(s): M77.12 - Lateral epicondylitis, left elbow Plan Pain Management - Affect: The pain is frustrating and interferes with her ability to perform certain fitness exercises. - Analgesia: The patient takes Aleve nightly, but this is for restless legs syndrome. - Activities of Daily Living: The patient's pain primarily impacts her gym activities, specifically exercises involving cross-body or twisting motions. - Aberrant Drug Related Behaviors: No aberrant behaviors were noted or discussed. Plan Patient was informed and verbally consented to the use of an ambient scribe for clinic note documentation during this visit. 1. Lateral Epicondylitis Of Left Elbow The patient's presentation of left forearm pain, aggravated by specific movements like cross-body rows and twisting, is consistent with lateral epicondylitis. The condition is likely a result of a muscle imbalance and overuse, even though she is in good physical shape. A conservative treatment plan was recommended, which the patient agreed to trial for a couple of months. The patient will use a lateral epicondylitis strap during activities to change the fulcrum and reduce stress on the lateral epicondyle. She will also begin a strengthening program to isolate the wrist extensors, using a light weight (2.5-5 pounds) for high repetitions (30-40 reps) three times a week to address the underlying muscle imbalance. A cortisone injection was discussed as a future option if conservative measures fail, but it is being deferred to address the root cause of the issue first. Discussion Notes I discussed with the patient that her symptoms are consistent with lateral epicondylitis, or tennis elbow, likely due to a muscle imbalance and repetitive strain from her workouts. I explained the treatment options, including the use of a lateral epicondylitis strap, specific strengthening exercises, and a cortisone injection. We agreed to pursue a conservative approach first, as a cortisone shot would likely provide only temporary relief without addressing the underlying weakness, leading to potential recurrence. The patient was instructed to obtain a strap to wear during workouts and to begin an isolation exercise for her wrist extensors using light weights for high repetitions, 3 times per week. I advised her to continue with this regimen for a couple of months and to follow up if her symptoms do not improve, at which point we could reconsider a cortisone injection. Patient Instructions - Purchase a lateral epicondylitis strap (also known as a tennis elbow strap) from a local pharmacy and wear it during your workouts. - Begin strengthening your forearm by performing wrist extensions. Use a light weight, like a soup can or a 2.5 to 5-pound dumbbell. - Perform 30 to 40 slow repetitions of this exercise, three times per week, to the point of feeling a burn in the muscle. Avoid using heavy weights that cause more irritation. - You may need to temporarily avoid or modify exercises that cause sharp pain, such as cross-body rows. - Continue this treatment plan for a couple of months. If the pain does not get better, please schedule a follow-up appointment. - It is important to continue these strengthening exercises even after the pain goes away to prevent it from coming back. Coding Level of Care Code Tele New Pt Level 3 (07887) Diagnoses Lateral epicondylitis of left elbow M77.12 Laterality: left
== END 2025-09-11 11:45 | disposition home or self-care (01) ==
LOC: HO.HPHYS 11:09
PROVIDERS: PCP Internal Medicine; Visit Provider Physician Assistant
DX: M77.12 Lateral epicondylitis, left elbow (principal)
CPT/HCPCS: 99203

== ENCOUNTER 2025-09-21 15:43 | Outpatient (REF) | payer BC, SELFPAY ==
--- OUTSIDE RECORDS SUMMARY | 2025-08-10 03:00 | XMS_ITS ---
Author Organization [facility] [address] Address [address] [place] [address] Care Team Providers Care Peoplesoft Developer Name Role Phone KIMBERLI MALIK Primary Care Provider [phone] VALARIE MADSEN Unavailable [phone] STUART ZIEGLER [phone] Encounters Encounter Location Date Provider Diagnosis [facility] [address] [place] [address] 08/10/2025 STUART ZIEGLER Plan Of Treatment Next Appt Details Provider Name:STUART ZIEGLER , 03/11/2026 09:00:00 AM, [address], [address], [place], [address], Progress Notes * GLORIA QUESADAOB:[birth year] (50 yo F)Acc No.[id number]:08/10/2025 Progress Notes Patient: Rubia WEBSTERJERROD EDI Provider: Renny ZIEGLER :1975 A ge:50 Y S ex:Female Date:08/10/2025 Address:[address] [place], [place] [id number] Pcp:KIMBERLI MALIK Care Plan Details* * Electronic signature of LINNEA ZIEGLER PA-C, [id number] on 09/21/2025 at 04:37 PM EST Sign off status: Pending * Provider: Renny ZIEGLER Date: 10/10/2024 Generated for Printi ng/Faxing/eTransmitting on: 11/22/2024 04:37 PM EST
--- NOTE | ~2025-09-21 | US_ITS ---
EXAMINATION: US HEAD NECK SOFT TISSUE HISTORY: R22.0 - Localized swelling, mass and lump, head COMPARISON: There are no prior studies available for comparison. FINDINGS: Sonographic examination of 2 palpable abnormalities of the scalp was performed. There are 2 bony prominences measuring 8 and 7 mm in size. Spine to the palpable findings. US/US soft tiss head and/or neck IMPRESSION: There are 2 bony prominences of the scalp measuring 8 and 7 mm in size corresponding to the palpable findings. This could be further evaluated with unenhanced head CT. Electronically signed by: Arnol Silver MD 09/24/2025 09:49 AM EST
--- OUTSIDE RECORDS SUMMARY | 2025-09-21 16:38 | XMS_ITS | Clinical Summary ---
Author Organization [facility] Address [address] [place] [address] Care Team Providers Care Outreach Rep Name Role Phone Aleja Suarez MD Primary Care Provider [phone] Allergies Active Allergy Reactions Criticality Noted Date [...] by mouth 3 times daily. 5 Active vamdom-hrmp-am [id number]-bd-[id number] 81.6-0.12-10.8 mg tablet Take by mouth. Active [...] Surgery Date Site/Laterality Comments BREAST REDUCTION PROCEDURE: CA BREAST REDUCTION OTHER SURGICAL HISTORY PROCEDURE: ---- [...] on file Sexual Orientation Not on file Plan of Treatment Health Maintenance Due Date [...] Recently Relevant to Health Maintenance Care Teams Outreach Rep Relationship Specialty Start Date End Date Aleja Suarez MD [address] [place] [address] PCP - General Internal Medicine 07/31/15
--- OUTSIDE RECORDS SUMMARY | 2025-09-21 16:38 | XMS_ITS | Encounter Summary ---
Author Organization [facility] Address [address] [place] [phone] Phone Care Team Providers Care Adjunct English Instructor Name Role Phone Trent Rivera MD Primary Care Provider [phone] Reason for Referral * Physical Therapy (Routine) - Closed Specialty Diagnoses / Procedures Referred By Andrés sellers Referred To Contact Physical Therapy Diagnoses Encounter for rehabilitation Omar Brown PA Phone: tel: fax: [address] [address] Phone: tel: Referral ID Status Reason Start Date Expiration Date Visits Re quested Visits Authorized [id number] Closed 10/24/2019 10/03/2020 20 20 Encounter Details Date Type Department Care Team (Latest Contact Info) Description 10/24/2019 Transcribe Orders [facility] [address] [place] [id number] Omar Brown PA [address] [facility] [address] [place] [address] Encounter for rehabilitation (Primary Dx) Social History [...] Diagnoses Orde r Schedule Ambulatory referral to [facility] Physical Therapy Outpatient Referral Routine Encounter for rehabilitation Ordered: 10/24/2019 documented as of this encounter Visit Diagnoses Diagnosis Encounter for rehabilitation- Primary documented in this encounter Care Teams Adjunct English Instructor Relationship Specialty Start Date End Date Trent Rivera MD [address] [place] [address] PCP - General Internal Medicine 10/24/19 documented as of this encounter Additional Source Comments The information contained in this document represents components of the legal health record. It is not the complete legal health record.[facility]
--- OUTSIDE RECORDS SUMMARY | 2025-09-21 16:39 | XMS_ITS | Clinical Summary ---
Author Organization [facility] Address [address] [place], [place] [id number] Phone Care Team Providers Care Lockstitch Pocket Setter Name Role Phone Trent Rivera MD Primary Care Provider [phone] Allergies Active Allergy Reactions Criticality Noted Date [...] Medical Devices Not on file Insurance PPO [facility] PPO ME [facility]aky [facility] PPO ME Jaky [facility] PPO [facility]aky [facility] PPO OUT OF [facility] PPO OUT OF [facility] PPO OUT OF STATE PPO [facility] STATE PPO Care Teams Lockstitch Pocket Setter Relationship Specialty Start Date End Date Trent Rivera MD [address] [place] [phone] PCP - General Internal Medicine 10/24/19 Additional Source Comments The information contained in this document represents components of the legal health record. It is not the complete legal health record.[facility]
--- OUTSIDE RECORDS SUMMARY | 2025-09-21 16:39 | XMS_ITS | Encounter Summary ---
Author Organization [facility] Address [address] [place], [place] [address] [place] [address] Phone Care Team Providers Care Apprentice Painter Brush Name Role Phone Trent Rivera MD Primary Care Provider Encounter Details Date Type Department Care Team (Late st Contact Info) Description 09/24/2020 Ancillary Orders Virtual Department [address] [place] [address] Emily Moody NP 299 [facility] [address] [place] [address] Confusion; Gait disorder Social History Tobacco Use [...] gait documented in this encounter Care Teams Apprentice Painter Brush Relationship Specialty Start Date End Date Trent Rivera MD 299 [facility] [address] [place] [address] PCP - General Internal Medicine 10/24/19 documented as of this encounter Additional Source Comments The information contained in this document represents components of the legal health record. It is not the complete legal health record.[facility]
--- OUTSIDE RECORDS SUMMARY | 2025-09-21 16:39 | XMS_ITS | Clinical Summary ---
Author Organization [facility] Address [address] [place] [address] Care Team Providers Care Print Developer Automatic Name Role Phone Trent Rivera Primary Care Provider [phone] Allergies Active Allergy Reactions Criticality Noted Date [...] 2025 Zoster Vaccines (1 of 2) 2025 Influenza Vaccine (#1) 2025 , 07/21/2020, 09/04/2016 COVID-19 Vaccine ( season) 2025 08/23/2021, 10/15/2020, 09/24/2020 Insurance [employer] OUT OF STATE PPO Care Teams Print Developer Automatic Relationship Specialty Start Date End Date Trent Rivera [address] [place] [id number] PCP - General Internal Medicine 08/12/21
--- OUTSIDE RECORDS SUMMARY | 2025-09-21 16:39 | XMS_ITS | Patient Health Record ---
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 Name Role Phone KIMBERLI RIVERA Primary Care Provider VALARIE MADSEN Unavailable [phone] STUART ZIEGLER Unavailable [phone] Allergies Allergen (clinical drug ingredient) Drug/Non Drug Allergy documented on EMR Reaction Allergy Type Onset Date Status gelatin (uncoded) Unknown Allergy 12/22/2019 A ctive pcn (uncoded) Unknown Allergy Active Porcine (Pork) Protein stomach upset Drug Allergy Active Reason For Referral Reason Diagnosis 1 Left elbow pain (M25 .522) Referral Organization [facility] [address] Referring Provider First Name STUART Referring Provider Last Name TONEY Referring Provider Speciality Internal M edicine Referred Provider Specialty Psychiatry General Notes Tracee Monson 07/2025 10:42:23 AM EST > Pt given phone Clinical Notes Tracee Monson 08/2025 08:32:50 AM EST > called for fax no answer Ermias teague Wilmarie 08/16/2025 10:11:56 AM EST > received fax number [phone], Jeanne García 09/06/2025 03:25:30 PM EST > Scheduled for 09/11 at 11 am. Pt aware Referral Priority Routine Medications Medication SIG (Take, Route, Frequency, Duration) Notes Start Date End Date Status Zafirlukast 10 MG Tablet 2 tablets 1 hour before or 2 hours after meals Orally Twice a day Not-Taking Loteprednol Etabonate 0.5 % Suspension 1 drop into affected eye Ophthalmic Four times a day Not-Taking Magnesium 100 MG Capsule 1 capsule with food Orally twice a day Active Vitamin D 25 MCG (1000 UT) Tablet 1 tablet Orally daily Active ProAir HFA 108 (90 Base) MCG/ACT Aerosol Solution 1 puff as needed Inhalation every 4 hrs Not-Taking Ibuprofen after working out Not-Taking ZyrTEC Allergy 10 MG Tablet 1 tablet Orally Once a day; Duration: 30 day(s) PRN Active Flonase 50 MCG/ACT Suspension 1 spray in each nostril Nasally Once a day; Duration: 30 day(s) Not-Taking Amphetamine-Dextroamp het ER 20 MG Capsule Extended Release 24 Hour Oral; Duration: 28 Days Active Rosuvastatin Calcium 5 MG Tablet 1 tablet Orally Once a day; Duration: 90 days 11/21/2021 Not-Taking Amphetamine-Dextroamp hetamine 5 MG Tablet Oral; Duration: 30 Days Active Cefuroxime Axetil 500 MG Tablet 1 tablet Orally every 12 hrs; Duration: 7 days 08/20/2025 Active Naproxen 250 MG Tablet 1 tablet with food or milk as needed Orally daily after working out Active Airsupra 90-80 MCG/ACT Aerosol 2 puffs as needed Inhalation Six times a day Active Azelastine HCl 137 MCG/SPRAY Solution 1 puff in each nostril Nasally Twice a day Active Montelukast Sodium 10 MG Tablet Oral; Duration: 90 Days Active Michelle Morejon Not-Noel ing Immunizations Vaccine Route Administration Date Status Comme nts Flu vaccine no Preserv 3 and > IM Intramuscular 07/25/2018 Administered influenza IM Intramuscular 07/21/2020 Administered Social History Tobacco Use: Social History Observation Description Date Details (start date - stop date) Never Smoker NA - NA Social History Drugs/Alcohol: Social Info Question Answer Notes Drugs Have you used drugs other than those for medical reasons in the past 12 months? No Tobacco Use: Social Info Question Answer Notes Tobacco Use/Smoking Are you a nonsmoker Additional Details Category Social Info Options Details Drugs/Alcohol: Do you smoke marijuana? De nies Do you drink alcohol? 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 [...] Status Risk Notes Problem Iron deficiency anemia (81469192) Iron deficiency anemia, unspecified (D50.9) Active confirmed Problem Vitamin D deficiency (90525058) Vitamin D deficiency, unspecified (E55.9) Active confirmed Problem Obesity (079142265) Other obesity (E66.8) Active confirmed Problem Mixed hyperlipidemia (924128066) Mixed hyperlipidemia (E78.2) Active confirmed Problem Esotropia (65415841) Unspecified esotropia (H50.00) Active confirmed Problem Amblyopia (704072330) Unspecified amblyopia, left eye (H53.002) Active confirmed Problem Allergic rhinitis due to food (442147132) Allergic rhinitis due to food (J30.5) Active confirmed Problem Uncomplicated asthma (disorder) (914602684) Unspecified asthma, uncomplicated (J45.909) Active confirmed Problem Gastro-esophageal reflux disease with esophagitis (115408625) Gastro-esophageal reflux disease with esophagitis (K21.0) Active confirmed Problem Paresthesia (finding) (86082447) Paresthesia of skin (R20.2) Active confirmed Problem C-reactive protein abnormal (002264873) Elevated C-reactive protein (CRP) (R79.82) Active confirmed Problem Body mass index 30.00 to 34.99 (139751355647665) Body mass index (BMI) 32.0-32.9, adult (Z68.32) Active confirmed Problem Acquired hypothyroidism (387906378) Acquired hypothyroidism (E03.9) Active confirmed Problem Seasonal allergy (840929573) Seasonal allergies (J30.2) Active confirmed Problem Vitamin D deficiency (78306456) Vitamin D deficiency (E55.9) Active confirmed Problem Skin sensation disturbance (61991646) Tingling in extremities (R20.2) Active confirmed Problem Restless legs syndrome (85431649) Restless leg syndrome (G25.81) Active confirmed Problem Attention deficit hyperactivity disorder (017788776) Attention deficit hyperactivity disorder (ADHD), unspecified ADHD type (F90.9) Active confirmed Problem Uncomplicated moderate persistent asthma (841832814) Moderate persistent asthma without complication (J45.40) Active confirmed Problem Obese class I (036303832228427) BMI 33.0-33.9,adult (Z68.33) Active confirmed Problem Paresthesia (33508389) Paresthesia (R20.2) Active confirmed Problem Body mass index 30.00 to 34.99 (458170868657686) BMI 34.0-34.9,adult (Z68.34) Active confirmed Problem Microcytic anemia (338007915) Microcytic anemia (D50.9) Active confirmed Problem Avitaminosis D (50991609) Avitaminosis D (E55.9) Active confirmed Problem Carcinoma in situ of breast (260031816) 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, unspecified laterality (D05.00) Active confirmed Problem Attention deficit hyperactivity disorder (862897235) ADHD (attention deficit hyperactivity disorder), combined type (F90.2) Active confirmed Problem Mild intermittent asthma (041543787) Asthma, mild intermittent, well-controlled (J45.20) Active confirmed Problem Hyperlipidemia (34040815) Hyperlipidemia (E78.5) Active confirmed Vital Signs Heart Rate 87 /min 08/20/2025 Oximetry 99 % 08/20/2025 Blood pressure diastolic 80 mm Hg 08/20/2025 Height 64 in 08/20/2025 Blood pressure systolic 116 mm Hg 08/20/2025 Weight 182 lbs 08/20/2025 BMI 31.24 kg/m2 08/20/2025 Encounters Encounter Location Date Provider Diagnosis [facility] [address] [place] [id number] 02/28/2025 STUART ZIEGLER Annual physical exam Z00.00 ; Mixed hyperlipidemia E78.2 ; Seasonal allergies J30.2 ; Mild intermittent asthma, uncomplicated J45.20 ; Restless leg syndrome G25.81 ; Lobular carcinoma of breast, unspecified laterality C50.919 ; Laryngopharyngeal reflux (LPR) K21.9 ; ADHD (attention deficit hyperactivity disorder), combined type F90.2 ; Depression screening Z13.31 and Screening for substance abuse Z13.89 [facility] [address] [phone] 08/13/2025 STUART ZIEGLER 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, unspecified laterality D05.00 ; Hyperlipidemia E78.5 ; ADHD (attention deficit hyperactivity disorder), combined type F90.2 ; Restless leg syndrome G25.81 ; Asthma, mild intermittent, well-controlled J45.20 ; Seasonal allergies J30.2 ; Elbow pain, left M25.522 and Encounter for examination of blood pressure without abnormal findings Z01.30 [facility] [address] [phone] 08/20/2025 STUART ZIEGLER Flu-like symptoms R6 8.89 ; Sinus congestion R09.81 ; Moderate persistent asthma without complication J45.40 and Encounter for examination of blood pressure without abnormal findings Z01.30 [facility] [address] 02/07/2025 STUART ZIEGLER Annual physical exam Z00.00 ; Hyperlipidemia, unspecified hyperlipidemia type E78.5 ; Acquired hypothyroidism E03.9 and Vitamin D deficiency, unspecified E55.9 [facility] [address] [phone] 02/28/2025 STUART TONEY [facility] [address] 03/13/2025 STUART TONEY [facility] [address] 08/13/2025 KIMBERLI RIVERA [facility] [address] 08/20/2025 KIMBERLI RIVERA Assessments Encounter Date Diagnosis (ICD Code) Assessment Notes Treatment Notes Treatment Clinical Notes Section Notes 02/07/2025 Annual physical exam (ICD-10 - Z00.00) [...] of tamoxifen. Had been following primarily with [facility] breast services. Alternates between annual breast MRI [...] to monitor. # ADHD: Patient follows with [facility] for mental health. Continue Adderall 20 mg [...] log exercise and discussed fitness Apps like [employer] or [employer] which can help keep log off calories [...] Dictation was accomplished with the use of [employer] voice recognition software, which is prone to medical misidentifications and grammatical errors. This are unintentional and the practitioner does try to identify and correct these, but some could still be present. Please do not hesitate to contact practitioner for clarification. 02/28/2025 Annual physical exam (ICD-10 - Z00.00) [...] of tamoxifen. Had been following primarily with [facility] breast services. Alternates between annual breast MRI [...] to monitor. # ADHD: Patient follows with [facility] mental health. Continue Adderall 20 mg once [...] log exercise and discussed fitness Apps like [employer] or [employer] which can help keep log off calories [...] Dictation was accomplished with the use of [employer] voice recognition software, which is prone to medical misidentifications and grammatical errors. This are unintentional and the practitioner does try to identify and correct these, but some could still be present. Please do not hesitate to contact practitioner for clarification. 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 Medication list reconciled. Problem list updated. Cardiopulmonary examination unremarkable. All patient questions answered at this time. # Seasonal allergies: Continue azelastine 137 mcg spray 1 puff in each nostril twice daily. Continue Zyrtec 10 mg once daily as needed for seasonal allergies. Patient follows with [facility] reimbursement specialist. # Asthma: Patient has allergy and cough mediated asthma. Continue Air-Supra 2 puffs as needed 6 times daily [...] of tamoxifen. Had been following primarily with [facility] breast services. Alternates between annual breast MRI and mammogram every 6 months. Breast MRI in March 2025 with score of BI-RADS 1 negative. Patient had recent mammogram on 08/04/2025 for screening with findings of dense breast tissue, simple cyst. BI-RADS 2 benign. # Hyperlipidemia: Lipid panel in 2022 significant for total cholesterol 227 and LDL 140. Updated lipid panel on 02/27/2025 is significant for total cholesterol 235, triglycerides 80, LDL 139, HDL 81. ASCVD risk is 0.9%, no statin recommended. Patient had recent lipid panel updated, LDL has improved from 139-136. She states that at this time she is no longer taking rosuvastatin. # ADHD: Patient follows with [facility]. Continue Adderall 20 mg once daily in [...] of the medication. Continue follow-up with specialist. # Left elbow pain: Patient reports 2 to 3 months of left elbow pain particularly with flexion and external rotation against resistance. Patient is very active, she participates in HIT exercise and CrossFit training. She states that particularly when she is externally rotating the wrist while lifting a weight she experiences pain in the area of central anterior elbow. She reports no associated numbness or tingling traveling down the extremity. 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 No weakness of the extremity. On examination, there is no tenderness to palpation of the left olecranon. Medial and lateral epicondyles are also nontender to palpation. Flexion and extension passively produces no tenderness. External rotation of the wrist against resistance produces tenderness in the left elbow. Negative cubital tunnel Tinel test. Discussed that integrity of the joint is very good, likely no particular benefit in radiograph. Patient at this time does take naproxen twice daily for pain control. Will refer to physiatry for further evaluation and management. All questions have been answered to patient's satisfaction. Patient verbalized understanding of diagnosis and treatments explained. Advised to call sooner prior to next visit it any questions/concerns arise. Case discussed with collaborating physician Sheng Rivera who reviewed the assessment and plan. Chart, medications, labs, vital signs reviewed. Dictation was accomplished with the use of [employer] voice recognition software, which is prone to medical misidentifications and grammatical errors. This are unintentional and the practitioner does try to identify and correct these, but some could still be present. Please do not hesitate to contact practitioner for clarification. 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 Medication list reconciled. Problem list updated. Cardiopulmonary examination unremarkable. All patient questions answered at this time. # Seasonal allergies: Continue azelastine 137 mcg spray 1 puff in each nostril twice daily. Continue Zyrtec 10 mg once daily as needed for seasonal allergies. Patient follows with [facility] reimbursement specialist. # Asthma: Patient has allergy and cough mediated asthma. Continue Air-Supra 2 puffs as needed 6 times daily [...] of tamoxifen. Had been following primarily with [facility] breast services. Alternates between annual breast MRI and mammogram every 6 months. Breast MRI in March 2025 with score of BI-RADS 1 negative. Patient had recent mammogram on 08/04/2025 for screening with findings of dense breast tissue, simple cyst. BI-RADS 2 benign. # Hyperlipidemia: Lipid panel in 2022 significant for total cholesterol 227 and LDL 140. Updated lipid panel on 02/27/2025 is significant for total cholesterol 235, triglycerides 80, LDL 139, HDL 81. ASCVD risk is 0.9%, no statin recommended. Patient had recent lipid panel updated, LDL has improved from 139-136. She states that at this time she is no longer taking rosuvastatin. # ADHD: Patient follows with [facility] mental health. Continue Adderall 20 mg once [...] of the medication. Continue follow-up with specialist. # Left elbow pain: Patient reports 2 to 3 months of left elbow pain particularly with flexion and external rotation against resistance. Patient is very active, she participates in HIT exercise and Cross[employer] training. She states that particularly when she is externally rotating the wrist while lifting a weight she experiences pain in the area of central anterior elbow. She reports no associated numbness or tingling traveling down the extremity. 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 No weakness of the extremity. On examination, there is no tenderness to palpation of the left olecranon. Medial and lateral epicondyles are also nontender to palpation. Flexion and extension passively produces no tenderness. External rotation of the wrist against resistance produces tenderness in the left elbow. Negative cubital tunnel Tinel test. Discussed that integrity of the joint is very good, likely no particular benefit in radiograph. Patient at this time does take naproxen twice daily for pain control. Will refer to physiatry for further evaluation and management. All questions have been answered to patient's satisfaction. Patient verbalized understanding of diagnosis and treatments explained. Advised to call sooner prior to next visit it any questions/concerns arise. Case discussed with collaborating physician Shneg Rivera who reviewed the assessment and plan. Chart, medications, labs, vital signs reviewed. Dictation was accomplished with the use of [employer] voice recognition software, which is prone to medical misidentifications and grammatical errors. This are unintentional and the practitioner does try to identify and correct these, but some could still be present. Please do not hesitate to contact practitioner for clarification. 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 She reports a few days prior to office visit 08/13/2025 developing a sore throat which then began to resolve. Last Wednesday began having symptoms of headache with congestion, shortness of breath with exertion, dry cough, ear fullness, and reports a low-grade fever yesterday. 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 On exam today she overall is well-appearing and in no acute distress. Her vital signs are stable. Cardiopulmonary exam is unremarkable. Lungs are clear to auscultation without wheezing, stridor, rhonchi, or rales. Bilateral tympanic membranes are nonerythematous without bulging, perforations, or air-fluid levels. There is a lymphadenopathy/lymp hadenitis appreciated on the left anterior cervical chain. No significant tenderness to palpation of the sinuses. Based on her clinical evaluation and examination I suspect some degree of asthma exacerbation along with a potential sinus infection. Patient does have allergy to penicillins as well as to gelatin which can limit her antibiotic choices. Plan will be to treat with cefuroxime 500 mg p.o. twice daily x 7 days. Discussed proper use of medication and side effects. Also provided the patient with a sample of Airsupra to use as needed for symptoms of shortness of breath/wheezing. Discussed red flag signs that would require ED evaluation. Patient understanding, all patient questions answered at this time. All questions have been answered to patient's satisfaction. Patient verbalized understanding of diagnosis and treatments explained. Advised to call sooner prior to next visit it any questions/concerns arise. Case discussed with collaborating physician Sheng Rivera who reviewed the assessment and plan. Chart, medications, labs, vital signs reviewed. Dictation was accomplished with the use of [employer] voice recognition software, which is prone to medical misidentifications and grammatical errors. This are unintentional and the practitioner does try to identify and correct these, but some could still be present. Please do not hesitate to contact practitioner for clarification. 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 She reports a few days prior to office visit 08/13/2025 developing a sore throat which then began to resolve. Last Wednesday began having symptoms of headache with congestion, shortness of breath with exertion, dry cough, ear fullness, and reports a low-grade fever yesterday. 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 On exam today she overall is well-appearing and in no acute distress. Her vital signs are stable. Cardiopulmonary exam is unremarkable. Lungs are clear to auscultation without wheezing, stridor, rhonchi, or rales. Bilateral tympanic membranes are nonerythematous without bulging, perforations, or air-fluid levels. There is a lymphadenopathy/lymp hadenitis appreciated on the left anterior cervical chain. No significant tenderness to palpation of the sinuses. Based on her clinical evaluation and examination I suspect some degree of asthma exacerbation along with a potential sinus infection. Patient does have allergy to penicillins as well as to gelatin which can limit her antibiotic choices. Plan will be to treat with cefuroxime 500 mg p.o. twice daily x 7 days. Discussed proper use of medication and side effects. Also provided the patient with a sample of Airsupra to use as needed for symptoms of shortness of breath/wheezing. Discussed red flag signs that would require ED evaluation. Patient understanding, all patient questions answered at this time. All questions have been answered to patient's satisfaction. Patient verbalized understanding of diagnosis and treatments explained. Advised to call sooner prior to next visit it any questions/concerns arise. Case discussed with collaborating physician Sheng Rivera who reviewed the assessment and plan. Chart, medications, labs, vital signs reviewed. Dictation was accomplished with the use of [employer] voice recognition software, which is prone to medical misidentifications and grammatical errors. This are unintentional and the practitioner does try to identify and correct these, but some could still be present. Please do not hesitate to contact practitioner for clarification. 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 She reports a few days prior to office visit 08/13/2025 developing a sore throat which then began to resolve. Last Wednesday began having symptoms of headache with congestion, shortness of breath with exertion, dry cough, ear fullness, and reports a low-grade fever yesterday. 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 On exam today she overall is well-appearing and in no acute distress. Her vital signs are stable. Cardiopulmonary exam is unremarkable. Lungs are clear to auscultation without wheezing, stridor, rhonchi, or rales. Bilateral tympanic membranes are nonerythematous without bulging, perforations, or air-fluid levels. There is a lymphadenopathy/lymp hadenitis appreciated on the left anterior cervical chain. No significant tenderness to palpation of the sinuses. Based on her clinical evaluation and examination I suspect some degree of asthma exacerbation along with a potential sinus infection. Patient does have allergy to penicillins as well as to gelatin which can limit her antibiotic choices. Plan will be to treat with cefuroxime 500 mg p.o. twice daily x 7 days. Discussed proper use of medication and side effects. Also provided the patient with a sample of Airsupra to use as needed for symptoms of shortness of breath/wheezing. Discussed red flag signs that would require ED evaluation. Patient understanding, all patient questions answered at this time. All questions have been answered to patient's satisfaction. Patient verbalized understanding of diagnosis and treatments explained. Advised to call sooner prior to next visit it any questions/concerns arise. Case discussed with collaborating physician Sheng Rivera who reviewed the assessment and plan. Chart, medications, labs, vital signs reviewed. Dictation was accomplished with the use of [employer] voice recognition software, which is prone to medical misidentifications and grammatical errors. This are unintentional and the practitioner does try to identify and correct these, but some could still be present. Please do not hesitate to contact practitioner for clarification. 08/13/2025 ADHD (attention deficit hyperactivity disorder), combined type (ICD-10 - F90.2) Patient is a 50-year-old female with history of allergic rhinitis, laryngopharyngeal reflux, asthma, lobular carcinoma in situ of the bilateral breast status post successful completion of tamoxifen x 5 years, hyperlipidemia, and lower extremity numbness/tingling who presents today for routine follow-up. Medication list reconciled. Problem list updated. Cardiopulmonary examination unremarkable. All patient questions answered at this time. # Seasonal allergies: Continue azelastine 137 mcg spray 1 puff in each nostril twice daily. Continue Zyrtec 10 mg once daily as needed for seasonal allergies. Patient follows with [facility] reimbursement specialist. # Asthma: Patient has allergy and cough mediated asthma. Continue Air-Supra 2 puffs as needed 6 times daily [...] of tamoxifen. Had been following primarily with [facility] breast services. Alternates between annual breast MRI and mammogram every 6 months. Breast MRI in March 2025 with score of BI-RADS 1 negative. Patient had recent mammogram on 08/04/2025 for screening with findings of dense breast tissue, simple cyst. BI-RADS 2 benign. # Hyperlipidemia: Lipid panel in 2022 significant for total cholesterol 227 and LDL 140. Updated lipid panel on 02/27/2025 is significant for total cholesterol 235, triglycerides 80, LDL 139, HDL 81. ASCVD risk is 0.9%, no statin recommended. Patient had recent lipid panel updated, LDL has improved from 139-136. She states that at this time she is no longer taking rosuvastatin. # ADHD: Patient follows with [facility] mental health. Continue Adderall 20 mg once [...] of the medication. Continue follow-up with specialist. # Left elbow pain: Patient reports 2 to 3 months of left elbow pain particularly with flexion and external rotation against resistance. Patient is very active, she participates in HIT exercise and CrossFit training. She states that particularly when she is externally rotating the wrist while lifting a weight she experiences pain in the area of central anterior elbow. She reports no associated numbness or tingling traveling down the extremity. 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 No weakness of the extremity. On examination, there is no tenderness to palpation of the left olecranon. Medial and lateral epicondyles are also nontender to palpation. Flexion and extension passively produces no tenderness. External rotation of the wrist against resistance produces tenderness in the left elbow. Negative cubital tunnel Tinel test. Discussed that integrity of the joint is very good, likely no particular benefit in radiograph. Patient at this time does take naproxen twice daily for pain control. Will refer to physiatry for further evaluation and management. All questions have been answered to patient's satisfaction. Patient verbalized understanding of diagnosis and treatments explained. Advised to call sooner prior to next visit it any questions/concerns arise. Case discussed with collaborating physician Sheng Rivera who reviewed the assessment and plan. Chart, medications, labs, vital signs reviewed. Dictation was accomplished with the use of [employer] voice recognition software, which is prone to [...] of tamoxifen. Had been following primarily with [facility] breast services. Alternates between annual breast MRI [...] to monitor. # ADHD: Patient follows with [facility] mental health. Continue Adderall 20 mg once [...] log exercise and discussed fitness Apps like [employer] or [employer] which can help keep log off calories [...] Dictation was accomplished with the use of [employer] voice recognition software, which is prone to [...] of tamoxifen. Had been following primarily with [facility] breast services. Alternates between annual breast MRI [...] to monitor. # ADHD: Patient follows with [facility] mental health. Continue Adderall 20 mg once [...] log exercise and discussed fitness Apps like [employer] or [employer] which can help keep log off calories [...] Dictation was accomplished with the use of [employer] voice recognition software, which is prone to medical misidentifications and grammatical errors. This are unintentional and the practitioner does try to identify and correct these, but some could still be present. Please do not hesitate to contact practitioner for clarification. 08/13/2025 Restless leg syndrome (ICD-10 - G25.81) Patient is a 50-year-old female with history of allergic rhinitis, laryngopharyngeal reflux, asthma, lobular carcinoma in situ of the bilateral breast status post successful completion of tamoxifen x 5 years, hyperlipidemia, and lower extremity numbness/tingling who presents today for routine follow-up. Medication list reconciled. Problem list updated. Cardiopulmonary examination unremarkable. All patient questions answered at this time. # Seasonal allergies: Continue azelastine 137 mcg spray 1 puff in each nostril twice daily. Continue Zyrtec 10 mg once daily as needed for seasonal allergies. Patient follows with [facility] reimbursement specialist. # Asthma: Patient has allergy and cough mediated asthma. Continue Air-Supra 2 puffs as needed 6 times daily [...] of tamoxifen. Had been following primarily with [facility] breast services. Alternates between annual breast MRI and mammogram every 6 months. Breast MRI in March 2025 with score of BI-RADS 1 negative. Patient had recent mammogram on 08/04/2025 for screening with findings of dense breast tissue, simple cyst. BI-RADS 2 benign. # Hyperlipidemia: Lipid panel in 2022 significant for total cholesterol 227 and LDL 140. Updated lipid panel on 02/27/2025 is significant for total cholesterol 235, triglycerides 80, LDL 139, HDL 81. ASCVD risk is 0.9%, no statin recommended. Patient had recent lipid panel updated, LDL has improved from 139-136. She states that at this time she is no longer taking rosuvastatin. # ADHD: Patient follows with [facility] health. Continue Adderall 20 mg once daily [...] of the medication. Continue follow-up with specialist. # Left elbow pain: Patient reports 2 to 3 months of left elbow pain particularly with flexion and external rotation against resistance. Patient is very active, she participates in HIT exercise and CrossFit training. She states that particularly when she is externally rotating the wrist while lifting a weight she experiences pain in the area of central anterior elbow. She reports no associated numbness or tingling traveling down the extremity. 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 No weakness of the extremity. On examination, there is no tenderness to palpation of the left olecranon. Medial and lateral epicondyles are also nontender to palpation. Flexion and extension passively produces no tenderness. External rotation of the wrist against resistance produces tenderness in the left elbow. Negative cubital tunnel Tinel test. Discussed that integrity of the joint is very good, likely no particular benefit in radiograph. Patient at this time does take naproxen twice daily for pain control. Will refer to physiatry for further evaluation and management. All questions have been answered to patient's satisfaction. Patient verbalized understanding of diagnosis and treatments explained. Advised to call sooner prior to next visit it any questions/concerns arise. Case discussed with collaborating physician Sheng Rivera who reviewed the assessment and plan. Chart, medications, labs, vital signs reviewed. Dictation was accomplished with the use of [employer] voice recognition software, which is prone to medical misidentifications and grammatical errors. This are unintentional and the practitioner does try to identify and correct these, but some could still be present. Please do not hesitate to contact practitioner for clarification. 08/20/2025 Encounter for examination of blood pressure without abnormal findings (ICD-10 - Z01.30) Patient is a 50-year-old female with history of allergic rhinitis, acid reflux, asthma, lobular carcinoma in situ of the bilateral breast status post use of tamoxifen, hyperlipidemia, and lower extremity numbness who presents today for urgent visit for upper respiratory symptoms. She reports a few days prior to office visit 08/13/2025 developing a sore throat which then began to resolve. Last Wednesday began having symptoms of headache with congestion, shortness of breath with exertion, dry cough, ear fullness, and reports a low-grade fever yesterday. 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 On exam today she overall is well-appearing and in no acute distress. Her vital signs are stable. Cardiopulmonary exam is unremarkable. Lungs are clear to auscultation without wheezing, stridor, rhonchi, or rales. Bilateral tympanic membranes are nonerythematous without bulging, perforations, or air-fluid levels. There is a lymphadenopathy/lymp hadenitis appreciated on the left anterior cervical chain. No significant tenderness to palpation of the sinuses. Based on her clinical evaluation and examination I suspect some degree of asthma exacerbation along with a potential sinus infection. Patient does have allergy to penicillins as well as to gelatin which can limit her antibiotic choices. Plan will be to treat with cefuroxime 500 mg p.o. twice daily x 7 days. Discussed proper use of medication and side effects. Also provided the patient with a sample of Airsupra to use as needed for symptoms of shortness of breath/wheezing. Discussed red flag signs that would require ED evaluation. Patient understanding, all patient questions answered at this time. All questions have been answered to patient's satisfaction. Patient verbalized understanding of diagnosis and treatments explained. Advised to call sooner prior to next visit it any questions/concerns arise. Case discussed with collaborating physician Sheng Rivera who reviewed the assessment and plan. Chart, medications, labs, vital signs reviewed. Dictation was accomplished with the use of [employer] voice recognition software, which is prone to medical misidentifications and grammatical errors. This are unintentional and the practitioner does try to identify and correct these, but some could still be present. Please do not hesitate to contact practitioner for clarification. 08/13/2025 Asthma, mild intermittent, well-controlled (ICD-10 - J45.20) Patient is a 50-year-old female with history of allergic rhinitis, laryngopharyngeal reflux, asthma, lobular carcinoma in situ of the bilateral breast status post successful completion of tamoxifen x 5 years, hyperlipidemia, and lower extremity numbness/tingling who presents today for routine follow-up. Medication list reconciled. Problem list updated. Cardiopulmonary examination unremarkable. All patient questions answered at this time. # Seasonal allergies: Continue azelastine 137 mcg spray 1 puff in each nostril twice daily. Continue Zyrtec 10 mg once daily as needed for seasonal allergies. Patient follows with [facility] reimbursement specialist. # Asthma: Patient has allergy and cough mediated asthma. Continue Air-Supra 2 puffs as needed 6 times daily [...] of tamoxifen. Had been following primarily with [facility] breast services. Alternates between annual breast MRI and mammogram every 6 months. Breast MRI in March 2025 with score of BI-RADS 1 negative. Patient had recent mammogram on 08/04/2025 for screening with findings of dense breast tissue, simple cyst. BI-RADS 2 benign. # Hyperlipidemia: Lipid panel in 2022 significant for total cholesterol 227 and LDL 140. Updated lipid panel on 02/27/2025 is significant for total cholesterol 235, triglycerides 80, LDL 139, HDL 81. ASCVD risk is 0.9%, no statin recommended. Patient had recent lipid panel updated, LDL has improved from 139-136. She states that at this time she is no longer taking rosuvastatin. # ADHD: Patient follows with [facility] mental health. Continue Adderall 20 mg once [...] of the medication. Continue follow-up with specialist. # Left elbow pain: Patient reports 2 to 3 months of left elbow pain particularly with flexion and external rotation against resistance. Patient is very active, she participates in HIT exercise and CrossFit training. She states that particularly when she is externally rotating the wrist while lifting a weight she experiences pain in the area of central anterior elbow. She reports no associated numbness or tingling traveling down the extremity. 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 No weakness of the extremity. On examination, there is no tenderness to palpation of the left olecranon. Medial and lateral epicondyles are also nontender to palpation. Flexion and extension passively produces no tenderness. External rotation of the wrist against resistance produces tenderness in the left elbow. Negative cubital tunnel Tinel test. Discussed that integrity of the joint is very good, likely no particular benefit in radiograph. Patient at this time does take naproxen twice daily for pain control. Will refer to physiatry for further evaluation and management. All questions have been answered to patient's satisfaction. Patient verbalized understanding of diagnosis and treatments explained. Advised to call sooner prior to next visit it any questions/concerns arise. Case discussed with collaborating physician Sheng Rivera who reviewed the assessment and plan. Chart, medications, labs, vital signs reviewed. Dictation was accomplished with the use of [employer] voice recognition software, which is prone to medical misidentifications and grammatical errors. This are unintentional and the practitioner does try to identify and correct these, but some could still be present. Please do not hesitate to contact practitioner for clarification. 02/28/2025 Restless leg syndrome (ICD-10 - G25.81) [...] of tamoxifen. Had been following primarily with [facility] breast services. Alternates between annual breast MRI [...] to monitor. # ADHD: Patient follows with [facility] mental health. Continue Adderall 20 mg once [...] log exercise and discussed fitness Apps like [employer] or [employer] which can help keep log [...] Dictation was accomplished with the use of [employer] voice recognition software, which is prone to medical misidentifications and grammatical errors. This are unintentional and the practitioner does try to identify and correct these, but some could still be present. Please do not hesitate to contact practitioner for clarification. 02/07/2025 Vitamin D deficiency, unspecified (ICD-10 - E55.9) 02/28/2025 Lobular carcinoma of breast, unspecified laterality [...] of tamoxifen. Had been following primarily with [facility] breast services. Alternates between annual breast MRI [...] to monitor. # ADHD: Patient follows with [facility] mental health. Continue Adderall 20 mg once [...] log exercise and discussed fitness Apps like [employer] or [employer] which can help keep log off calories [...] Dictation was accomplished with the use of [employer] voice recognition software, which is prone to medical misidentifications and grammatical errors. This are unintentional and the practitioner does try to identify and correct these, but some could still be present. Please do not hesitate to contact practitioner for clarification. 08/13/2025 Seasonal allergies (ICD-10 - J30.2) Patient is a 50-year-old female with history of allergic rhinitis, laryngopharyngeal reflux, asthma, lobular carcinoma in situ of the bilateral breast status post successful completion of tamoxifen x 5 years, hyperlipidemia, and lower extremity numbness/tingling who presents today for routine follow-up. Medication list reconciled. Problem list updated. Cardiopulmonary examination unremarkable. All patient questions answered at this time. # Seasonal allergies: Continue azelastine 137 mcg spray 1 puff in each nostril twice daily. Continue Zyrtec 10 mg once daily as needed for seasonal allergies. Patient follows with [facility] reimbursement specialist. # Asthma: Patient has allergy and cough mediated asthma. Continue Air-Supra 2 puffs as needed 6 times daily [...] of tamoxifen. Had been following primarily with [facility] breast services. Alternates between annual breast MRI and mammogram every 6 months. Breast MRI in March 2025 with score of BI-RADS 1 negative. Patient had recent mammogram on 08/04/2025 for screening with findings of dense breast tissue, simple cyst. BI-RADS 2 benign. # Hyperlipidemia: Lipid panel in 2022 significant for total cholesterol 227 and LDL 140. Updated lipid panel on 02/27/2025 is significant for total cholesterol 235, triglycerides 80, LDL 139, HDL 81. ASCVD risk is 0.9%, no statin recommended. Patient had recent lipid panel updated, LDL has improved from 139-136. She states that at this time she is no longer taking rosuvastatin. # ADHD: Patient follows with [facility] for mental health. Continue Adderall 20 mg [...] of the medication. Continue follow-up with specialist. # Left elbow pain: Patient reports 2 to 3 months of left elbow pain particularly with flexion and external rotation against resistance. Patient is very active, she participates in HIT exercise and CrossFit training. She states that particularly when she is externally rotating the wrist while lifting a weight she experiences pain in the area of central anterior elbow. She reports no associated numbness or tingling traveling down the extremity. 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 No weakness of the extremity. On examination, there is no tenderness to palpation of the left olecranon. Medial and lateral epicondyles are also nontender to palpation. Flexion and extension passively produces no tenderness. External rotation of the wrist against resistance produces tenderness in the left elbow. Negative cubital tunnel Tinel test. Discussed that integrity of the joint is very good, likely no particular benefit in radiograph. Patient at this time does take naproxen twice daily for pain control. Will refer to physiatry for further evaluation and management. All questions have been answered to patient's satisfaction. Patient verbalized understanding of diagnosis and treatments explained. Advised to call sooner prior to next visit it any questions/concerns arise. Case discussed with collaborating physician Sheng Rivera who reviewed the assessment and plan. Chart, medications, labs, vital signs reviewed. Dictation was accomplished with the use of [employer] voice recognition software, which is prone to [...] of tamoxifen. Had been following primarily with [facility] breast services. Alternates between annual breast MRI [...] to monitor. # ADHD: Patient follows with [facility] mental health. Continue Adderall 20 mg once [...] log exercise and discussed fitness Apps like [employer] or [employer] which can help keep log off calories [...] Dictation was accomplished with the use of [employer] voice recognition software, which is prone to medical misidentifications and grammatical errors. This are unintentional and the practitioner does try to identify and correct these, but some could still be present. Please do not hesitate to contact practitioner for clarification. 08/13/2025 Elbow pain, left (ICD-10 - M25.522) Patient is a 50-year-old female with history of allergic rhinitis, laryngopharyngeal reflux, asthma, lobular carcinoma in situ of the bilateral breast status post successful completion of tamoxifen x 5 years, hyperlipidemia, and lower extremity numbness/tingling who presents today for routine follow-up. Medication list reconciled. Problem list updated. Cardiopulmonary examination unremarkable. All patient questions answered at this time. # Seasonal allergies: Continue azelastine 137 mcg spray 1 puff in each nostril twice daily. Continue Zyrtec 10 mg once daily as needed for seasonal allergies. Patient follows with [facility] reimbursement specialist. # Asthma: Patient has allergy and cough mediated asthma. Continue Air-Supra 2 puffs as needed 6 times daily [...] of tamoxifen. Had been following primarily with [facility] breast services. Alternates between annual breast MRI and mammogram every 6 months. Breast MRI in March 2025 with score of BI-RADS 1 negative. Patient had recent mammogram on 08/04/2025 for screening with findings of dense breast tissue, simple cyst. BI-RADS 2 benign. # Hyperlipidemia: Lipid panel in 2022 significant for total cholesterol 227 and LDL 140. Updated lipid panel on 02/27/2025 is significant for total cholesterol 235, triglycerides 80, LDL 139, HDL 81. ASCVD risk is 0.9%, no statin recommended. Patient had recent lipid panel updated, LDL has improved from 139-136. She states that at this time she is no longer taking rosuvastatin. # ADHD: Patient follows with [facility] mental health. Continue Adderall 20 mg once [...] of the medication. Continue follow-up with specialist. # Left elbow pain: Patient reports 2 to 3 months of left elbow pain particularly with flexion and external rotation against resistance. Patient is very active, she participates in HIT exercise and CrossFit training. She states that particularly when she is externally rotating the wrist while lifting a weight she experiences pain in the area of central anterior elbow. She reports no associated numbness or tingling traveling down the extremity. 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 No weakness of the extremity. On examination, there is no tenderness to palpation of the left olecranon. Medial and lateral epicondyles are also nontender to palpation. Flexion and extension passively produces no tenderness. External rotation of the wrist against resistance produces tenderness in the left elbow. Negative cubital tunnel Tinel test. Discussed that integrity of the joint is very good, likely no particular benefit in radiograph. Patient at this time does take naproxen twice daily for pain control. Will refer to physiatry for further evaluation and management. All questions have been answered to patient's satisfaction. Patient verbalized understanding of diagnosis and treatments explained. Advised to call sooner prior to next visit it any questions/concerns arise. Case discussed with collaborating physician Sheng Rivera who reviewed the assessment and plan. Chart, medications, labs, vital signs reviewed. Dictation was accomplished with the use of [employer] voice recognition software, which is prone to medical misidentifications and grammatical errors. This are unintentional and the practitioner does try to identify and correct these, but some could still be present. Please do not hesitate to contact practitioner for clarification. 08/13/2025 Encounter for examination of blood pressure without abnormal findings (ICD-10 - Z01.30) Patient is a 50-year-old female with history of allergic rhinitis, laryngopharyngeal reflux, asthma, lobular carcinoma in situ of the bilateral breast status post successful completion of tamoxifen x 5 years, hyperlipidemia, and lower extremity numbness/tingling who presents today for routine follow-up. Medication list reconciled. Problem list updated. Cardiopulmonary examination unremarkable. All patient questions answered at this time. # Seasonal allergies: Continue azelastine 137 mcg spray 1 puff in each nostril twice daily. Continue Zyrtec 10 mg once daily as needed for seasonal allergies. Patient follows with [facility] reimbursement specialist. # Asthma: Patient has allergy and cough mediated asthma. Continue Air-Supra 2 puffs as needed 6 times daily [...] of tamoxifen. Had been following primarily with [facility] breast services. Alternates between annual breast MRI and mammogram every 6 months. Breast MRI in March 2025 with score of BI-RADS 1 negative. Patient had recent mammogram on 08/04/2025 for screening with findings of dense breast tissue, simple cyst. BI-RADS 2 benign. # Hyperlipidemia: Lipid panel in 2022 significant for total cholesterol 227 and LDL 140. Updated lipid panel on 02/27/2025 is significant for total cholesterol 235, triglycerides 80, LDL 139, HDL 81. ASCVD risk is 0.9%, no statin recommended. Patient had recent lipid panel updated, LDL has improved from 139-136. She states that at this time she is no longer taking rosuvastatin. # ADHD: Patient follows with [facility] mental health. Continue Adderall 20 mg once [...] of the medication. Continue follow-up with specialist. # Left elbow pain: Patient reports 2 to 3 months of left elbow pain particularly with flexion and external rotation against resistance. Patient is very active, she participates in HIT exercise and CrossFit training. She states that particularly when she is externally rotating the wrist while lifting a weight she experiences pain in the area of central anterior elbow. She reports no associated numbness or tingling traveling down the extremity. 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 No weakness of the extremity. On examination, there is no tenderness to palpation of the left olecranon. Medial and lateral epicondyles are also nontender to palpation. Flexion and extension passively produces no tenderness. External rotation of the wrist against resistance produces tenderness in the left elbow. Negative cubital tunnel Tinel test. Discussed that integrity of the joint is very good, likely no particular benefit in radiograph. Patient at this time does take naproxen twice daily for pain control. Will refer to physiatry for further evaluation and management. All questions have been answered to patient's satisfaction. Patient verbalized understanding of diagnosis and treatments explained. Advised to call sooner prior to next visit it any questions/concerns arise. Case discussed with collaborating physician Sheng Rivera who reviewed the assessment and plan. Chart, medications, labs, vital signs reviewed. Dictation was accomplished with the use of [employer] voice recognition software, which is prone to [...] of tamoxifen. Had been following primarily with [facility] breast services. Alternates between annual breast MRI [...] to monitor. # ADHD: Patient follows with [facility] mental health. Continue Adderall 20 mg once [...] log exercise and discussed fitness Apps like [employer] or [employer] which can help keep log off calories [...] Dictation was accomplished with the use of [employer] voice recognition software, which is prone to [...] of tamoxifen. Had been following primarily with [facility] breast services. Alternates between annual breast MRI [...] to monitor. # ADHD: Patient follows with [facility] health. Continue Adderall 20 mg once daily [...] log exercise and discussed fitness Apps like [employer] or [employer] which can help keep log off calories [...] Dictation was accomplished with the use of [employer] voice recognition software, which is prone to [...] of tamoxifen. Had been following primarily with [facility] breast services. Alternates between annual breast MRI [...] to monitor. # ADHD: Patient follows with [facility] mental health. Continue Adderall 20 mg once [...] log exercise and discussed fitness Apps like [employer] or [employer] which can help keep log [...] Dictation was accomplished with the use of [employer] voice recognition software, which is prone to [...] URINALYSIS W/REFLEX CULTURE 02/07/2025 LIPID PANEL, STANDARD 11/21/2021 LIPID PANEL, STANDARD 11/30/2022 LIPID PANEL, STANDARD 02/28/2025 LIPID PANEL, STANDARD 08/13/2025 COMPREHENSIVE METABOLIC PANEL 08/13/2025 COMPREHENSIVE METABOLIC PANEL 02/07/2025 IRON AND TOTAL IRON BINDING CAPACITY CBC (INCLUDES DIFF/PLT) 11/30/2022 CBC (INCLUDES DIFF/PLT) 08/13/2025 URINALYSIS, COMPLETE 11/21/2021 URINALYSIS, COMPLETE 08/13/2025 VITAMIN B12/FOLATE, SERUM PANEL 03/03/20 FERRITIN 11/30/2022 TSH 11/30/2022 TSH 08/13/2025 VITAMIN D,25-OH,TOTAL,IA 08/13/2025 VITAMIN D,25-OH,TOTAL,IA 11/21/2021 VITAMIN D, 1,25 DIHYDROXY LC/MS/MS 02/07 COMPLETE URINALYSIS 01/27/2021 PPC Rapid Covid/Strep/Flu/RSV 08/20/2025 PPC Strep Test 08/20/2025 Next Appt Details Provider Name:STUART ZIEGLER , 03/11/2026 09:00:00 AM, [address] [facility] [address], [place], [address], Insurance Providers Payer Name Payer Address Payer Phone Subscriber Number Group Number Insured Name Patient Relationship to Insured Coverage Start Date Coverage End Date [facility] [address] [place] [address] [id number] MOSQUEDA Self - patient is the insured Medical (General) History Medical History History ICD Code asthma anemia hyperlipidemia Breast CA Surgical History Surgery Date(Month/Year) d+c cholecystectomy mammoplasty hip orif bladder exposion diplopia correction
--- OUTSIDE RECORDS SUMMARY | 2025-09-21 16:39 | XMS_ITS | Clinical Summary ---
Author Organization [facility] Prior to 03/03/[address] [place] [id number] Care Team Providers Care Supervisor Paste Mixing Name Role Phone Trent Rivera MD Primary Care Provider [phone] Allergies Active Allergy Reactions Criticality Noted Date [...] to complete this topic Care Teams Supervisor Paste Mixing Relationship Specialty Start Date End Date Trent Rivera MD [address] [place] [address] PCP - General Internal Medicine 08/18/18
== END 2025-09-21 15:44 | disposition home or self-care (01) ==
LOC: HO.US 15:43
PROVIDERS: PCP Internal Medicine; Visit Provider Surgery
DX: R22.0 Localized swelling, mass and lump, head (principal)
CPT/HCPCS: 76536

== ENCOUNTER → 2025-09-21 15:45 | Outpatient (BNV) | payer BC, SELFPAY | PROVIDERS: PCP Internal Medicine; Visit Provider Radiology Diagnostic Radiology | DX: R22.0 Localized swelling, mass and lump, head (principal) | CPT/HCPCS: 76536 ==